=== PATIENT | male | born 1950 | race Caucasian/White ===

== ENCOUNTER 2020-04-20 14:34 | Inpatient (IN) | payer MEDICARE ==
[~2020-04-20] VITALS: Ht 170.2 cm; Wt 69.4 kg
[2020-04-20 15:26] LABS: BASO % 1 % (0-3); EOS # 0.1 x10^3/uL (0.0-0.7); EOS % 1 % (0-3); HEMATOCRIT 24.9 % (39.0-53.0); HEMOGLOBIN 8.1 g/dL (13.0-17.5); LYMPH # 0.5 x10^3/uL (1.0-4.8); LYMPH % 13 % (24-48); MEAN CORPUSCULAR HEMOGLOBIN 30 pg (25-35); MEAN CORPUSCULAR HGB CONC 32 g/dL (31-37); MEAN CORPUSCULAR VOLUME 93 fL (79-100); MONO # 0.4 x10^3/uL (0.0-1.1); MONO % 10 % (0-9); NEUT # 3.1 x10^3/uL (1.8-7.7); NEUT % 76 % (31-73); PLATELET COUNT 124 x10^3/uL (140-400); WHITE BLOOD COUNT 4.2 x10^3/uL (4.0-11.0)
--- NOTE | 2020-04-20 15:29 | PHYS DOC ---
Past Medical History Past Medical History: No Pertinent History Past Surgical History: No Surgical History Smoking Status: Former Smoker Alcohol Use: None Drug Use: None General Adult EDM: Chief Complaint: WEAKNESS/GENERALIZED HPI: HPI: 69-year-old male presenting the [facility] today with generalized w eakness. He is brought in by a friend. They have noticed that he has been losing weight over the past 3 to 4 months. He is got generally weak. He was able to walk from his bedroom to the friend's car with some assistance. He denies any pain at this time. He denies nausea vomiting or diaphoresis. Review of systems negative for chest pain headache vomiting fevers chills or karyn h. He denies dysuria hematuria polyuria. All other review of systems negative. ED course: 69-year-old male presenting with generalized weakness and decreasing mobility over the past 2 months. On arrival patient is afebrile with elevated blood pressure of 180/96. Pulse within normal limits. Blood work shows hemoglobin of 8.1. White blood cell count of 4.2. Chemistry panel shows hyperkalemia of 6.9. Carbon dioxide of 11. BUN 211. Creatinine of 14.1. Calcium of 5.9. proBNP is greater than 35,000. Troponin 0 0.06. CK of 934. I spoke with the auto radiator mechanic about possible dialysis tonight. He will schedule for dialysis tomorrow morning. He recommends a bicarb drip and calcium. I then spoke to Dr. Gonzalez. Will admit the patient to the intensive care unit. Dr. Gonzalez accepts the patient for admission. CT of the abdomen pelvis shows no acute pathology. Heart Score: Risk Factors: Risk Factors: DM, Current or recent (<one month) smoker, HTN, HLP, family hist ory of CAD, obesity. Risk Scores: Score 0 - 3: 2.5% MACE over next 6 weeks - Discharge Home Score 4 - 6: 20.3% MACE over next 6 weeks - Admit for Clinical Observation Score 7 - 10: 72.7% MACE over next 6 weeks - Early Invasive Strategies Physical Exam: PE: Constitutional: Well developed, well nourished, no acute distress, non-toxic appearance. [] HENT: Normocephalic, atraumatic, bilateral external ears normal, oropharynx moist, no oral exudates, nose normal. [] Eyes: PERRLA, EOMI, conjunctiva normal, no discharge. [] Neck: Normal range of motion, no tenderness, supple, no stridor. [] Cardiovascular:Heart rate regular rhythm, no murmur [] Lungs & Thorax: Bilateral breath sounds clear to auscultation [] Abdomen: Bowel sounds normal, soft, no tenderness, no masses, no pulsatile masses. [] Skin: Warm, dry, no erythema, no rash. [] Back: No tenderness, no CVA tenderness. [] Extremities: No tenderness, no cyanosis, no clubbing, ROM intact, trace bilateral edema. [] Neurologic: Mental status: Awake oriented and alert x3 Cranial nerves: Extraocular movements intact, eyebrows martin bilaterally, smile symmetric, uvula elevation nl, shoulder shrug intact bilaterally, tongue protrusion normal Clear speech. Normal [id number]. Sensation: equal and normal in all extremities Strength: 5/5 in upper and lower extremities bilaterally Psychologic: Affect normal, judgement normal, mood normal. [] EKG: EKG: EKG shows sinus rhythm with a regular rate. There is subtle lateral st depression. Does not meet STEMI criteria. No ST elevation. There are no peaking T waves. QRS 108. QTc 496. Radiology/Procedures: Radiology/Procedures: [] Course & Med Decision Making: Course & Med Decision Making Pertinent Labs and Imaging studies reviewed. (See chart for details) [] Dragon Disclaimer: Dragon Disclaimer: This electronic medical record was generated, in whole or in part, using a voice recognition dictation system. Departure Departure Impression: Primary Impression: PNA (pneumonia) Additional Impression: Elevated troponin Disposition: ADMITTED INPT THIS HOSP Admitting Physician: ROYCE Condition: STABLE Critical Care Time Critical care time spent was 45 minutes exclusive of procedures. Time was spent evaluating the patient, ordering the administration of medications, reevaluating the patient, discussing with the admitting provider and documenting. JAYNE ECKERT MD Apr 20, 2020 15:29
[2020-04-20 15:47] LABS: ALBUMIN 3.6 g/dL (3.4-5.0); CREATININE 14.1 mg/dL (0.7-1.3); DIRECT BILIRUBIN 0.1 mg/dL (0.0-0.2); GFR 3.5; TOTAL BILIRUBIN 0.4 mg/dL (0.2-1.0); TOTAL PROTEIN 7.3 g/dL (6.4-8.2)
--- NOTE | 2020-04-20 15:56 | RAD ---
INDICATION: Reason: gen weakness / Spl. Instructions: / History: COMPARISON: April 2007 FINDINGS: Single view of chest obtained. Hypoexpanded examination. Elevation of the right hemidiaphragm. Mild patchy interstitial opacity. Deg enerative changes the shoulders. IMPRESSION: * Hypoexpanded exam with mild patchy interstitial opacity. This could be secondary to crowding of th e lung markings from hypoexpansion but mild pulmonary vascular congestion or interstitial infiltrate is not excluded given this finding. Electronically signed by: Hermann Patton MD (04/20/2020 3:54 PM) [id number]
[2020-04-20 16:05] LABS: CALCIUM 5.9 mg/dL (8.5-10.1)
[2020-04-20] MEDS ORDERED: cefTRIAXone IV Push 1 GM VIAL. IVP ONE (16:15)
[2020-04-20] MEDS ORDERED: ASPIRIN CHEWABLE 81 MG TABLET. PO ONE (16:15)
[2020-04-20] MEDS ORDERED: AZITHRMYCN 500MG IVPB FOR OMNI 250 ML IV ONE (16:15)
[2020-04-20] MEDS ORDERED: CALCIUM GLUCONATE 1,000 MG/10 ML VIAL. IVP ONE (16:45)
[2020-04-20] MEDS ORDERED: SODIUM BICARB ADULT 8.4% 50 MEQ/50 ML DISP.SYRIN. IV ONE (16:45)
[2020-04-20 17:24] LABS: POTASSIUM 6.9 mmol/L (3.5-5.1)
[2020-04-20 18:01] LABS: BASE EXCESS COOX -16 mmol/L (-3-3); HCO3 COOX 9 mmol/L (21-28); METHEMOGLOBIN 0.7 % (0.0-1.9); OXYHEMOGLOBIN 96.2 %; PO2 COOX 108 mmHg (65-108); SAT O2 COOX 97 % (92-99)
[2020-04-20 18:03] LABS: PCO2 COOX 18 mmHg (35-46)
[2020-04-20] MEDS ORDERED: MAGNESIUM SULFATE 2GM 50 ML IV PRN (18:45)
--- NOTE | 2020-04-20 18:46 | PDOC ---
PROGRESS NOTES Date of Service DATE: 04/20/20 TIME: 18:44 Subjective Subjective Discussed case with Dr Leach. Appears to have had significant weight loss in recent past with high suspicion for underlying Malignancy. Will await Abd CT etc prior to consideration for Dialysis anand since progonosis would be dependent on same. Will use only 1 L of IVF with BIcarb due to ^^Ed BNP. IV Bicarb as needed. check Mag and CK. Objective Objective Vital Signs Date Time Temp Pulse Resp B/P (MAP) Pulse Ox O2 Delivery O2 Flow Rate FiO2 04/20/20 17:55 Room Air 04/20/20 17:29 94 99 04/20/20 14:50 98.1 20 179/96 (123) 98.1 Assessment Assessment Problems Medical Problems: (1) Elevated troponin Status: Acute (2) PNA (pneumonia) Status: Acute Comment Review of Relevant I have reviewed the following items amee (where applicable) has been applied. Labs Laboratory Tests Test 04/20/20 15:15 04/20/20 17:55 White Blood Count 4.2 x10^3/uL (4.0-11.0) Red Blood Count 2.70 x10^6/uL (4.30-5.70) Hemoglobin 8.1 g/dL (13.0-17.5) Hematocrit 24.9 % (39.0-53.0) Mean Corpuscular Volume 93 fL (79-100) Mean Corpuscular Hemoglobin 30 pg (25-35) Mean Corpuscular Hemoglobin Concent 32 g/dL (31-37) Red Cell Distribution Width 16.0 % (11.5-14.5) Platelet Count 124 x10^3/uL (140-400) Neutrophils (%) (Auto) 76 % (31-73) Lymphocytes (%) (Auto) 13 % (24-48) Monocytes (%) (Auto) 10 % (0-9) Eosinophils (%) (Auto) 1 % (0-3) Basophils (%) (Auto) 1 % (0-3) Neutrophils # (Auto) 3.1 x10^3/uL (1.8-7.7) Lymphocytes # (Auto) 0.5 x10^3/uL (1.0-4.8) Monocytes # (Auto) 0.4 x10^3/uL (0.0-1.1) Eosinophils # (Auto) 0.1 x10^3/uL (0.0-0.7) Basophils # (Auto) 0.0 x10^3/uL (0.0-0.2) Sodium Level 142 mmol/L (136-145) Potassium Level 6.9 mmol/L (3.5-5.1) Chloride Level 110 mmol/L (98-107) Carbon Dioxide Level 11 mmol/L (21-32) Anion Gap 21 (6-14) Blood Urea Nitrogen 211 mg/dL (8-26) Creatinine 14.1 mg/dL (0.7-1.3) Estimated GFR (Cockcroft-Gault) 3.5 Glucose Level 91 mg/dL (70-99) Calcium Level 5.9 mg/dL (8.5-10.1) Total Bilirubin 0.4 mg/dL (0.2-1.0) Direct Bilirubin 0.1 mg/dL (0.0-0.2) Aspartate Amino Transf (AST/SGOT) 44 U/L (15-37) Alanine Aminotransferase (ALT/SGPT) 100 U/L (16-63) Alkaline Phosphatase 167 U/L (46-116) Troponin I Quantitative 0.060 ng/mL (0.000-0.055) SN-Bmq-A-Type Natriuretic Peptide > 69026 pg/mL (0-124) Total Protein 7.3 g/dL (6.4-8.2) Albumin 3.6 g/dL (3.4-5.0) Lipase 590 U/L (73-393) O2 Saturation 97 % (92-99) Arterial Blood pH 7.30 (7.35-7.45) Arterial Blood pCO2 at Patient Temp 18 mmHg (35-46) Arterial Blood pO2 at Patient Temp 108 mmHg (65-108) Arterial Blood HCO3 9 mmol/L (21-28) Arterial Blood Base Excess -16 mmol/L (-3-3) Oxyhemoglobin 96.2 % Methemoglobin 0.7 % (0.0-1.9) Carbon Monoxide, Quantitative 0.3 % (0.0-1.9) FiO2 21 Laboratory Tests Test 04/20/20 15:15 04/20/20 17:55 White Blood Count 4.2 x10^3/uL (4.0-11.0) Red Blood Count 2.70 x10^6/uL (4.30-5.70) Hemoglobin 8.1 g/dL (13.0-17.5) Hematocrit 24.9 % (39.0-53.0) Mean Corpuscular Volume 93 fL (79-100) Mean Corpuscular Hemoglobin 30 pg (25-35) Mean Corpuscular Hemoglobin Concent 32 g/dL (31-37) Red Cell Distribution Width 16.0 % (11.5-14.5) Platelet Count 124 x10^3/uL (140-400) Neutrophils (%) (Auto) 76 % (31-73) Lymphocytes (%) (Auto) 13 % (24-48) Monocytes (%) (Auto) 10 % (0-9) Eosinophils (%) (Auto) 1 % (0-3) Basophils (%) (Auto) 1 % (0-3) Neutrophils # (Auto) 3.1 x10^3/uL (1.8-7.7) Lymphocytes # (Auto) 0.5 x10^3/uL (1.0-4.8) Monocytes # (Auto) 0.4 x10^3/uL (0.0-1.1) Eosinophils # (Auto) 0.1 x10^3/uL (0.0-0.7) Basophils # (Auto) 0.0 x10^3/uL (0.0-0.2) Sodium Level 142 mmol/L (136-145) Potassium Level 6.9 mmol/L (3.5-5.1) Chloride Level 110 mmol/L (98-107) Carbon Dioxide Level 11 mmol/L (21-32) Anion Gap 21 (6-14) Blood Urea Nitrogen 211 mg/dL (8-26) Creatinine 14.1 mg/dL (0.7-1.3) Estimated GFR (Cockcroft-Gault) 3.5 Glucose Level 91 mg/dL (70-99) Calcium Level 5.9 mg/dL (8.5-10.1) Total Bilirubin 0.4 mg/dL (0.2-1.0) Direct Bilirubin 0.1 mg/dL (0.0-0.2) Aspartate Amino Transf (AST/SGOT) 44 U/L (15-37) Alanine Aminotransferase (ALT/SGPT) 100 U/L (16-63) Alkaline Phosphatase 167 U/L (46-116) Troponin I Quantitative 0.060 ng/mL (0.000-0.055) HG-Uvf-Z-Type Natriuretic Peptide > 99327 pg/mL (0-124) Total Protein 7.3 g/dL (6.4-8.2) Albumin 3.6 g/dL (3.4-5.0) Lipase 590 U/L (73-393) O2 Saturation 97 % (92-99) Arterial Blood pH 7.30 (7.35-7.45) Arterial Blood pCO2 at Patient Temp 18 mmHg (35-46) Arterial Blood pO2 at Patient Temp 108 mmHg (65-108) Arterial Blood HCO3 9 mmol/L (21-28) Arterial Blood Base Excess -16 mmol/L (-3-3) Oxyhemoglobin 96.2 % Methemoglobin 0.7 % (0.0-1.9) Carbon Monoxide, Quantitative 0.3 % (0.0-1.9) FiO2 21 Medications Current Medications Ceftriaxone Sodium (Rocephin) 1 gm 1X ONCE IVP Last administered on 04/20/20at 17:42; Start 04/20/20 at 16:15; Stop 04/20/20 at 16:17; Status DC Azithromycin 250 ml @ 250 mls/hr 1X ONCE IV Last administered on 04/20/20at 17:45; Start 04/20/20 at 16:15; Stop 04/20/20 at 17:14; Status DC Aspirin (Aspirin Chewable) 324 mg 1X ONCE PO Last administered on 04/20/20at 17:48; Start 04/20/20 at 16:15; Stop 04/20/20 at 16:17; Status DC Calcium Gluconate (Calcium Gluconate) 1,000 mg 1X ONCE IVP Last administered on 04/20/20at 17:34; Start 04/20/20 at 16:45; Stop 04/20/20 at 16:46; Status DC Sodium Bicarbonate (Sodium Bicarb Adult 8.4% Syr) 50 meq 1X ONCE IV Last administered on 04/20/20at 17:32; Start 04/20/20 at 16:45; Stop 04/20/20 at 16:46; Status DC Sodium Bicarbonate 150 meq/Sterile Water 1,150 ml @ 125 mls/hr Q9H12M IV ; Start 04/20/20 at 19:00 Magnesium Sulfate 50 ml @ 25 mls/hr PRN DAILY PRN IV for Mag < 1.7 on am labs; Start 04/20/20 at 18:45 Vitals/I & O Vital Sign - Last 24 Hours 04/20/20 04/20/20 04/20/20 04/20/20 14:50 15:29 15:59 16:29 Temp 98.1 98.1 Pulse 90 92 90 90 Resp 20 B/P (MAP) 179/96 (123) Pulse Ox 99 99 O2 Delivery Room Air 04/20/20 04/20/20 04/20/20 16:59 17:29 17:55 Pulse 90 94 Pulse Ox 100 99 O2 Delivery Room Air Justifications for Admission Other Justification JORGE OSPINA MD Apr 20, 2020 18:46
[2020-04-20] MEDS ORDERED: SODIUM POLYSTYRENE SULFON/SORB 15 GM/60 ML ORAL.SUSP. PO ONE (19:00)
[2020-04-20] MEDS ORDERED: SODIUM BICARBONATE VIAL 150 MEQ in IV STERILE WATER 1,000 ML IV SCH (19:00)
--- NOTE | 2020-04-20 19:02 | RAD ---
Exam performed: CT scan of the abdomen and pelvis with contrast Indication: Elevated bilirubin Date of Service: 04/20/2020. Comparison: None available Technique: Contiguous helical acquisitions are obtained through the abdomen and pelvis without IV co ntrast In addition sagittal and coronal reformatted images are obtained and reviewed. CT scan abdomen and pelvis findings: Small right and trace left pleural effusion. Bibasilar atelectasis. Borderline cardiomegaly. Unopacified liver, spleen, pancreas and gallbladder are normal. Bilateral adrenal nodules. Bilateral kidneys are symmetric without hydronephrosis or nephrolithiasis. Diffuse atheromatous aortic calcific ation. Small and large bowel loops are nondilated and unremarkable. Generalized mesenteric haziness s een around both kidneys perhaps chronic. Appendix is not clearly seen. Mild sigmoid diverticulosis. T here is scattered stool in the rectosigmoid region. Diffuse prostatomegaly causing mass effect on the base of urinary bladder which appears somewhat decompressed. Bones are normal. Impression CT Abdomen and pelvis: 1. Small right and trace left pleural effusion. 2. No acute intra-abdominal or pelvic process seen. PQRS Compliance Statement: One or more of the following individualized dose reduction techniques were utilized for this examinat ion: 1. Automated exposure control 2. Adjustment of the mA and/or kV according to patient size 3. Use of iterative reconstruction technique Electronically signed by: Tia Sorto MD (04/20/2020 7:00 PM) [facility]
--- NOTE | 2020-04-20 19:38 | PDOC1 ---
History and Physical Date of Admission Date of Admission DATE: 04/20/20 TIME: 19:14 Identification/Chief Complaint Chief Complaint Weakness Source Source: Caregiver, Patient History of Present Illness History of Present Illness Patient 69-year-old male no stated past medical history who resents to the ER with complaint of generalized weakness for the past 3 months. Over this time patient notes associated 40 pound unintentional weight loss, and constitutional symptoms of night sweats and intermittent nocturnal fevers. He lives alone and presents to the ED at the behest of his family friend, who has been urging ev santana to be seen by a doctor for the past several months. Upon evaluation in the ER he is noted to be jaundice with icteric sclera. He states he has not urinated today, and upon evaluation in the ER he was noted to be in renal failure. Patient is alert and oriented to self and place. He really does not have any complaints except for admitted weakness, and he requires much prodding to obtain information. Will admit patient for further medical management. WBC 4.2, hemoglobin 8.1, hematocrit 24.9, potassium 6.9, bicarbonate 11, BUN 211, creatinine 14.1, calcium 5.9, AST 44, ALT 100, alk phos 167, BNP >35,000, troponin 0.060 Past Medical History Past Medical History Denies past medical history Past Surgical History Past Surgical History Denies surgical history Family History Family History Denies relevant family history Social History Smoke: No ALCOHOL: none Drugs: None Current Problem List Problem List Problems Medical Problems: (1) Elevated troponin Status: Acute (2) PNA (pneumonia) Status: Acute Current Medications Current Medications Current Medications Ceftriaxone Sodium (Rocephin) 1 gm 1X ONCE IVP Last administered on 04/20/20at 17:42; Start 04/20/20 at 16:15; Stop 04/20/20 at 16:17; Status DC Azithromycin 250 ml @ 250 mls/hr 1X ONCE IV Last administered on 04/20/20at 17:45; Start 04/20/20 at 16:15; Stop 04/20/20 at 17:14; Status DC Aspirin (Aspirin Chewable) 324 mg 1X ONCE PO Last administered on 04/20/20at 17:48; Start 04/20/20 at 16:15; Stop 04/20/20 at 16:17; Status DC Calcium Gluconate (Calcium Gluconate) 1,000 mg 1X ONCE IVP Last administered on 04/20/20at 17:34; Start 04/20/20 at 16:45; Stop 04/20/20 at 16:46; Status DC Sodium Bicarbonate (Sodium Bicarb Adult 8.4% Syr) 50 meq 1X ONCE IV Last administered on 04/20/20at 17:32; Start 04/20/20 at 16:45; Stop 04/20/20 at 16:46; Status DC Sodium Bicarbonate 150 meq/Sterile Water 1,150 ml @ 125 mls/hr Q9H12M IV ; Start 04/20/20 at 19:00; Stop 04/21/20 at 02:59 Magnesium Sulfate 50 ml @ 25 mls/hr PRN DAILY PRN IV for Mag < 1.7 on am labs; Start 04/20/20 at 18:45 Calcium Gluconate (Calcium Gluconate) 1,000 mg Q3H IVP ; Start 04/20/20 at 19:00; Stop 04/21/20 at 01:01 Sodium Polystyrene Sulfonate (Kayexalate) 45 gm 1X ONCE PO ; Start 04/20/20 at 19:00; Stop 04/20/20 at 19:01; Status DC Allergies Allergies: Coded Allergies: No Known Drug Allergies (Unverified , 04/20/20) ROS Review of System GENERAL: Weakness, unintentional weight loss, night sweats, intermittent fevers. SKIN: No bruising, hair changes or rashes. EYES: No blurred, double or loss of vision. NOSE AND THROAT: No history of nosebleeds, hoarseness or sore throat. HEART: Denies chest pain, denies palpitations. LUNGS: Denies cough, hemoptysis, wheezing or shortness of breath. GASTROINTESTINAL: Denies nausea, vomiting, abdominal pain. GENITOURINARY: Denies dysuria, frequency, urgency, hematuria. NEUROLOGIC: Denies history of numbness, tingling, tremor or weakness. PSYCHIATRIC: Denies anxiety, denies depression. ENDOCRINE: No history of heat or cold intolerance, polyuria or polydipsia. EXTREMITIES: Denies muscle weakness, joint pain, pain on walking or stiffness. Physical Exam Physical Exam General: Alert, Oriented X2, No acute distress. Cachectic appearing. HEENT: Icteric sclera. PERRLA, EOMI Lungs: Clear to auscultation, Normal air movement Heart: RRR, no murmurs Cardiovascular: S1, S2 Abdomen: Normal bowel sounds, Soft, No tenderness Extremities: No clubbing, No cyanosis Skin: Jaundice. No rashes, No significant lesion Neuro: Normal speech, Normal tone, Sensation intact Psych/Mental Status: Mental status NL, Mood NL Vitals Vitals Vital Signs Date Time Temp Pulse Resp B/P (MAP) Pulse Ox O2 Delivery O2 Flow Rate FiO2 04/20/20 17:55 Room Air 04/20/20 17:29 94 99 04/20/20 14:50 98.1 20 179/96 (123) 98.1 Labs Labs Laboratory Tests Test 04/20/20 15:15 04/20/20 17:55 White Blood Count 4.2 x10^3/uL (4.0-11.0) Red Blood Count 2.70 x10^6/uL (4.30-5.70) Hemoglobin 8.1 g/dL (13.0-17.5) Hematocrit 24.9 % (39.0-53.0) Mean Corpuscular Volume 93 fL (79-100) Mean Corpuscular Hemoglobin 30 pg (25-35) Mean Corpuscular Hemoglobin Concent 32 g/dL (31-37) Red Cell Distribution Width 16.0 % (11.5-14.5) Platelet Count 124 x10^3/uL (140-400) Neutrophils (%) (Auto) 76 % (31-73) Lymphocytes (%) (Auto) 13 % (24-48) Monocytes (%) (Auto) 10 % (0-9) Eosinophils (%) (Auto) 1 % (0-3) Basophils (%) (Auto) 1 % (0-3) Neutrophils # (Auto) 3.1 x10^3/uL (1.8-7.7) Lymphocytes # (Auto) 0.5 x10^3/uL (1.0-4.8) Monocytes # (Auto) 0.4 x10^3/uL (0.0-1.1) Eosinophils # (Auto) 0.1 x10^3/uL (0.0-0.7) Basophils # (Auto) 0.0 x10^3/uL (0.0-0.2) Sodium Level 142 mmol/L (136-145) Potassium Level 6.9 mmol/L (3.5-5.1) Chloride Level 110 mmol/L (98-107) Carbon Dioxide Level 11 mmol/L (21-32) Anion Gap 21 (6-14) Blood Urea Nitrogen 211 mg/dL (8-26) Creatinine 14.1 mg/dL (0.7-1.3) Estimated GFR (Cockcroft-Gault) 3.5 Glucose Level 91 mg/dL (70-99) Calcium Level 5.9 mg/dL (8.5-10.1) Total Bilirubin 0.4 mg/dL (0.2-1.0) Direct Bilirubin 0.1 mg/dL (0.0-0.2) Aspartate Amino Transf (AST/SGOT) 44 U/L (15-37) Alanine Aminotransferase (ALT/SGPT) 100 U/L (16-63) Alkaline Phosphatase 167 U/L (46-116) Creatine Kinase 934 U/L (39-308) Troponin I Quantitative 0.060 ng/mL (0.000-0.055) FV-Fnj-B-Type Natriuretic Peptide > 39984 pg/mL (0-124) Total Protein 7.3 g/dL (6.4-8.2) Albumin 3.6 g/dL (3.4-5.0) Lipase 590 U/L (73-393) O2 Saturation 97 % (92-99) Arterial Blood pH 7.30 (7.35-7.45) Arterial Blood pCO2 at Patient Temp 18 mmHg (35-46) Arterial Blood pO2 at Patient Temp 108 mmHg (65-108) Arterial Blood HCO3 9 mmol/L (21-28) Arterial Blood Base Excess -16 mmol/L (-3-3) Oxyhemoglobin 96.2 % Methemoglobin 0.7 % (0.0-1.9) Carbon Monoxide, Quantitative 0.3 % (0.0-1.9) FiO2 21 Laboratory Tests Test 04/20/20 15:15 04/20/20 17:55 White Blood Count 4.2 x10^3/uL (4.0-11.0) Red Blood Count 2.70 x10^6/uL (4.30-5.70) Hemoglobin 8.1 g/dL (13.0-17.5) Hematocrit 24.9 % (39.0-53.0) Mean Corpuscular Volume 93 fL (79-100) Mean Corpuscular Hemoglobin 30 pg (25-35) Mean Corpuscular Hemoglobin Concent 32 g/dL (31-37) Red Cell Distribution Width 16.0 % (11.5-14.5) Platelet Count 124 x10^3/uL (140-400) Neutrophils (%) (Auto) 76 % (31-73) Lymphocytes (%) (Auto) 13 % (24-48) Monocytes (%) (Auto) 10 % (0-9) Eosinophils (%) (Auto) 1 % (0-3) Basophils (%) (Auto) 1 % (0-3) Neutrophils # (Auto) 3.1 x10^3/uL (1.8-7.7) Lymphocytes # (Auto) 0.5 x10^3/uL (1.0-4.8) Monocytes # (Auto) 0.4 x10^3/uL (0.0-1.1) Eosinophils # (Auto) 0.1 x10^3/uL (0.0-0.7) Basophils # (Auto) 0.0 x10^3/uL (0.0-0.2) Sodium Level 142 mmol/L (136-145) Potassium Level 6.9 mmol/L (3.5-5.1) Chloride Level 110 mmol/L (98-107) Carbon Dioxide Level 11 mmol/L (21-32) Anion Gap 21 (6-14) Blood Urea Nitrogen 211 mg/dL (8-26) Creatinine 14.1 mg/dL (0.7-1.3) Estimated GFR (Cockcroft-Gault) 3.5 Glucose Level 91 mg/dL (70-99) Calcium Level 5.9 mg/dL (8.5-10.1) Total Bilirubin 0.4 mg/dL (0.2-1.0) Direct Bilirubin 0.1 mg/dL (0.0-0.2) Aspartate Amino Transf (AST/SGOT) 44 U/L (15-37) Alanine Aminotransferase (ALT/SGPT) 100 U/L (16-63) Alkaline Phosphatase 167 U/L (46-116) Creatine Kinase 934 U/L (39-308) Troponin I Quantitative 0.060 ng/mL (0.000-0.055) HH-Ktl-E-Type Natriuretic Peptide > 70116 pg/mL (0-124) Total Protein 7.3 g/dL (6.4-8.2) Albumin 3.6 g/dL (3.4-5.0) Lipase 590 U/L (73-393) O2 Saturation 97 % (92-99) Arterial Blood pH 7.30 (7.35-7.45) Arterial Blood pCO2 at Patient Temp 18 mmHg (35-46) Arterial Blood pO2 at Patient Temp 108 mmHg (65-108) Arterial Blood HCO3 9 mmol/L (21-28) Arterial Blood Base Excess -16 mmol/L (-3-3) Oxyhemoglobin 96.2 % Methemoglobin 0.7 % (0.0-1.9) Carbon Monoxide, Quantitative 0.3 % (0.0-1.9) FiO2 21 Images Images Exam performed: CT scan of the abdomen and pelvis with contrast Indication: Elevated bilirubin Date of Service: 04/20/2020. Comparison: None available Technique: Contiguous helical acquisitions are obtained through the abdomen and pelvis without IV contrast In addition sagittal and coronal reformatted images are obtained and reviewed. CT scan abdomen and pelvis findings: Small right and trace left pleural effusion. Bibasilar atelectasis. Borderline cardiomegaly. Unopacified liver, spleen, pancreas and gallbladder are normal. Bilateral adrenal nodules. Bilateral kidneys are symmetric without hydronephrosis or nephrolithiasis. Diffuse atheromatous aortic calcification. Small and large bowel loops are nondilated and unremarkable. Generalized mesenteric haziness seen around both kidneys perhaps chronic. Appendix is not clearly seen. Mild sigmoid diverticulosis. There is scattered stool in the rectosigmoid region. Diffuse prostatomegaly causing mass effect on the base of urinary bladder which appears somewhat decompressed. Bones are normal. Impression CT Abdomen and pelvis: 1. Small right and trace left pleural effusion. 2. No acute intra-abdominal or pelvic process seen. INDICATION: Reason: gen weakness / Spl. Instructions: / History: COMPARISON: April 2007 FINDINGS: Single view of chest obtained. Hypoexpanded examination. Elevation of the right hemidiaphragm. Mild patchy interstitial opacity. Degenerative changes the shoulders. IMPRESSION: * Hypoexpanded exam with mild patchy interstitial opacity. This could be secondary to crowding of the lung markings from hypoexpansion but mild pulmonary vascular congestion or interstitial infiltrate is not excluded given this finding. VTE Prophylaxis Ordered VTE Prophylaxis Devices: No VTE Pharmacological Prophylaxi: Yes Assessment/Plan Assessment/Plan Acute renal failure Hyperkalemia Hypercalcemia Transaminitis Jaundice Elevated BNP Elevated troponins Plan: Consult nephrology for acute renal failure; patient will likely be initiated on hemodialysis Patient received calcium gluconate and sodium bicarb. Placed on bicarb drip. Consult to cardiology for elevated troponins, will continue to trend. Will consult GI for transaminitis and jaundice. Chest x-ray on admission shows patchy interstitial opacities, could be secondary to vascular congestion or infiltrates. Afebrile, nontoxic-appearing. Will treat empirically with renally dosed cefepime 1 g every 24 for possible community-acquired pneumonia. Unintentional weight loss of constitutional symptoms consistent with malignancy, but no clear source or etiology identified at this time. FEN - regular diet PPX - Heparin FULL CODE Dispo - inpatient for above Patient is a surrogate decision-maker as Brian Meade (family friend). Phone number: [phone] Justifications for Admission Other Justification ROX PERALTA MD Apr 20, 2020 19:38
[2020-04-20] MEDS ORDERED: CALCIUM CARBONATE 500 MG TAB.CHEW PO PRN (19:45)
[2020-04-20] MEDS ORDERED: MAGNESIUM HYDROXIDE 2,400 MG/30 ML ORAL.SUSP. PO PRN (19:45)
[2020-04-20] MEDS ORDERED: BISACODYL 10 MG SUPP.RECT. PR PRN (19:45)
[2020-04-20] MEDS ORDERED: MAG HYDROX/ALUMINUM HYD/SIMETH 30 ML ORAL.SUSP PO PRN (19:45)
[2020-04-20] MEDS: CALCIUM GLUCONATE 1,000 MG/10 ML VIAL. IVP SCH ×2 (20:42→23:55)
[2020-04-20] MEDS: HEPARIN for SUB-Q USE 5,000 UNIT/ML VIAL. SQ SCH (22:58)
[2020-04-21] VITALS (8 sets, daily range): BP systolic 150–178; BP diastolic 77–97
[2020-04-21] MEDS: CALCIUM GLUCONATE 1,000 MG/10 ML VIAL. IVP SCH (00:37)
[2020-04-21] MEDS ORDERED: CALCIUM GLUCONATE 1,000 MG/10 ML VIAL. IVP ONE (04:15)
[2020-04-21 05:41] LABS: CALCIUM 6.4 mg/dL (8.5-10.1); CREATININE 13.7 mg/dL (0.7-1.3); GFR 3.6; TOTAL BILIRUBIN 0.4 mg/dL (0.2-1.0); TOTAL PROTEIN 6.1 g/dL (6.4-8.2)
[2020-04-21 05:47] LABS: POTASSIUM 5.6 mmol/L (3.5-5.1)
[2020-04-21 06:47] LABS: BASO % 1 % (0-3); EOS # 0.1 x10^3/uL (0.0-0.7); EOS % 2 % (0-3); LYMPH # 0.5 x10^3/uL (1.0-4.8); LYMPH % 16 % (24-48); MEAN CORPUSCULAR HEMOGLOBIN 31 pg (25-35); MEAN CORPUSCULAR HGB CONC 33 g/dL (31-37); MEAN CORPUSCULAR VOLUME 95 fL (79-100); MONO # 0.3 x10^3/uL (0.0-1.1); MONO % 11 % (0-9); NEUT % 69 % (31-73); PLATELET COUNT 106 x10^3/uL (140-400); RED BLOOD COUNT 2.19 x10^6/uL (4.30-5.70); RED CELL DISTRIBUTION WIDTH 15.5 % (11.5-14.5); WHITE BLOOD COUNT 2.9 x10^3/uL (4.0-11.0)
[2020-04-21 06:59] LABS: HEMATOCRIT 20.7 % (39.0-53.0); HEMOGLOBIN 6.7 g/dL (13.0-17.5)
[2020-04-21] MEDS ORDERED: SODIUM POLYSTYRENE SULFON/SORB 15 GM/60 ML ORAL.SUSP. PO ONE (08:45)
--- NOTE | 2020-04-21 09:06 | PDOC ---
[employer] PROGRESS NOTE Date of Service DOS: DATE: 04/21/20 TIME: 09:01 Chief Complaint Chief Complaint Assessment/Plan Acute renal failure Hyperkalemia Hypercalcemia Transaminitis Jaundice Elevated BNP Elevated troponins Plan: Consult nephrology for acute renal failure; patient will likely be initiated on hemodialysis Patient received calcium gluconate and sodium bicarb. Placed on bicarb drip. Consult to cardiology for elevated troponins, will continue to trend. Will consult GI for transaminitis and jaundice. Chest x-ray on admission shows patchy interstitial opacities, could be secondary to vascular congestion or infiltrates. Afebrile, nontoxic-appearing. Will treat empirically with renally dosed cefepime 1 g every 24 for possible community-acquired pneumonia. Unintentional weight loss of constitutional symptoms consistent with malignancy, but no clear source or etiology identified at this time. FEN - regular diet PPX - Heparin FULL CODE Dispo - inpatient for above Patient is a surrogate decision-maker as Brian Meade (family friend). Phone number: [phone] History of Present Illness History of Present Illness Patient 69-year-old male no stated past medical history who resents to the ER with complaint of generalized weakness for the past 3 months. Over this time patient notes associated 40 pound unintentional weight loss, and constitutional symptoms of night sweats and intermittent nocturnal fevers. He lives alone and presents to the ED at the behest of his family friend, who has been urging patient to be seen by a doctor for the past several months. Upon evaluation in the ER he is noted to be jaundice with icteric sclera. He states he has not urinated today, and upon evaluation in the ER he was noted to be in renal failure. Patient is alert and oriented to self and place. He really does not have any complaints except for admitted weakness, and he requires much prodding to obtain information. Will admit patient for further medical management. 04/21: Patient without complaints today. Hemoglobin 6.7, potassium improved. Ordered 2 units pRBC. Due to presenting symptoms of weakness and intermittent fevers. Will swab patient for COVID-19. He may transfer 6th floor. Denies fever or nausea. Vitals/I&O Vitals/I&O: Vital Signs Date Time Temp Pulse Resp B/P (MAP) Pulse Ox O2 Delivery O2 Flow Rate FiO2 04/21/20 06:59 84 18 149/85 (106) 100 Room Air 04/20/20 14:50 98.1 98.1 I & O 04/20/20 04/20/20 04/21/20 15:00 23:00 07:00 Intake Total 250 ml 1270 ml Balance 250 ml 1270 ml Physical Exam General: Alert, No acute distress, Other (Cachectic appearing) Heart: Regular rate Lungs: Clear Abdomen: Normal bowel sounds, Soft Extremities: No edema, Normal pulses Skin: Other (Jaundiced) Labs Labs: Laboratory Tests Test 04/20/20 15:15 04/20/20 17:55 04/21/20 05:00 04/21/20 06:00 White Blood Count 4.2 x10^3/uL (4.0-11.0) 2.9 x10^3/uL (4.0-11.0) Red Blood Count 2.70 x10^6/uL (4.30-5.70) 2.19 x10^6/uL (4.30-5.70) Hemoglobin 8.1 g/dL (13.0-17.5) 6.7 g/dL (13.0-17.5) Hematocrit 24.9 % (39.0-53.0) 20.7 % (39.0-53.0) Mean Corpuscular Volume 93 fL (79-100) 95 fL (79-100) Mean Corpuscular Hemoglobin 30 pg (25-35) 31 pg (25-35) Mean Corpuscular Hemoglobin Concent 32 g/dL (31-37) 33 g/dL (31-37) Red Cell Distribution Width 16.0 % (11.5-14.5) 15.5 % (11.5-14.5) Platelet Count 124 x10^3/uL (140-400) 106 x10^3/uL (140-400) Neutrophils (%) (Auto) 76 % (31-73) 69 % (31-73) Lymphocytes (%) (Auto) 13 % (24-48) 16 % (24-48) Monocytes (%) (Auto) 10 % (0-9) 11 % (0-9) Eosinophils (%) (Auto) 1 % (0-3) 2 % (0-3) Basophils (%) (Auto) 1 % (0-3) 1 % (0-3) Neutrophils # (Auto) 3.1 x10^3/uL (1.8-7.7) 2.0 x10^3/uL (1.8-7.7) Lymphocytes # (Auto) 0.5 x10^3/uL (1.0-4.8) 0.5 x10^3/uL (1.0-4.8) Monocytes # (Auto) 0.4 x10^3/uL (0.0-1.1) 0.3 x10^3/uL (0.0-1.1) Eosinophils # (Auto) 0.1 x10^3/uL (0.0-0.7) 0.1 x10^3/uL (0.0-0.7) Basophils # (Auto) 0.0 x10^3/uL (0.0-0.2) 0.0 x10^3/uL (0.0-0.2) Sodium Level 142 mmol/L (136-145) 148 mmol/L (136-145) Potassium Level 6.9 mmol/L (3.5-5.1) 5.6 mmol/L (3.5-5.1) Chloride Level 110 mmol/L (98-107) 110 mmol/L (98-107) Carbon Dioxide Level 11 mmol/L (21-32) 14 mmol/L (21-32) Anion Gap 21 (6-14) 24 (6-14) Blood Urea Nitrogen 211 mg/dL (8-26) 203 mg/dL (8-26) Creatinine 14.1 mg/dL (0.7-1.3) 13.7 mg/dL (0.7-1.3) Estimated GFR (Cockcroft-Gault) 3.5 3.6 Glucose Level 91 mg/dL (70-99) 54 mg/dL (70-99) Calcium Level 5.9 mg/dL (8.5-10.1) 6.4 mg/dL (8.5-10.1) Total Bilirubin 0.4 mg/dL (0.2-1.0) 0.4 mg/dL (0.2-1.0) Direct Bilirubin 0.1 mg/dL (0.0-0.2) Aspartate Amino Transf (AST/SGOT) 44 U/L (15-37) 84 U/L (15-37) Alanine Aminotransferase (ALT/SGPT) 100 U/L (16-63) 120 U/L (16-63) Alkaline Phosphatase 167 U/L (46-116) 183 U/L (46-116) Creatine Kinase 934 U/L (39-308) Troponin I Quantitative 0.060 ng/mL (0.000-0.055) RA-Erz-K-Type Natriuretic Peptide > 44621 pg/mL (0-124) Total Protein 7.3 g/dL (6.4-8.2) 6.1 g/dL (6.4-8.2) Albumin 3.6 g/dL (3.4-5.0) 3.0 g/dL (3.4-5.0) Lipase 590 U/L (73-393) O2 Saturation 97 % (92-99) Arterial Blood pH 7.30 (7.35-7.45) Arterial Blood pCO2 at Patient Temp 18 mmHg (35-46) Arterial Blood pO2 at Patient Temp 108 mmHg (65-108) Arterial Blood HCO3 9 mmol/L (21-28) Arterial Blood Base Excess -16 mmol/L (-3-3) Oxyhemoglobin 96.2 % Methemoglobin 0.7 % (0.0-1.9) Carbon Monoxide, Quantitative 0.3 % (0.0-1.9) FiO2 21 Magnesium Level 1.7 mg/dL (1.8-2.4) BUN/Creatinine Ratio 15 (6-20) Phosphorus Level 11.0 mg/dL (2.6-4.7) Albumin/Globulin Ratio 1.0 (1.0-1.7) Test 04/21/20 06:39 Glucose (Fingerstick) 87 mg/dL (70-99) Assessment and Plan Assessmemt and Plan Problems Medical Problems: (1) Elevated troponin Status: Acute (2) PNA (pneumonia) Status: Acute Comment Review of Relevant I have reviewed the following items amee (where applicable) has been applied. Medications: Current Medications Medications (Trade) Dose Ordered Sig/Mary Route PRN Reason Start Time Stop Time Status Last Admin Dose Admin Ceftriaxone Sodium (Rocephin) 1 gm 1X ONCE IVP 04/20/20 16:15 04/20/20 16:17 DC 04/20/20 17:42 Azithromycin 250 ml @ 250 mls/hr 1X ONCE IV 04/20/20 16:15 04/20/20 17:14 DC 04/20/20 17:45 Aspirin (Aspirin Chewable) 324 mg 1X ONCE PO 04/20/20 16:15 04/20/20 16:17 DC 04/20/20 17:48 Calcium Gluconate (Calcium Gluconate) 1,000 mg 1X ONCE IVP 04/20/20 16:45 04/20/20 16:46 DC 04/20/20 17:34 Sodium Bicarbonate (Sodium Bicarb Adult 8.4% Syr) 50 meq 1X ONCE IV 04/20/20 16:45 04/20/20 16:46 DC 04/20/20 17:32 Sodium Bicarbonate 150 meq/Sterile Water 1,150 ml @ 125 mls/hr Q9H12M IV 04/20/20 19:00 04/21/20 02:59 DC 04/20/20 19:43 Calcium Gluconate (Calcium Gluconate) 1,000 mg Q3H IVP 04/20/20 19:00 04/21/20 01:01 DC 04/21/20 00:37 Sodium Polystyrene Sulfonate (Kayexalate) 45 gm 1X ONCE PO 04/20/20 19:00 04/20/20 19:01 DC 04/20/20 20:16 Heparin Sodium (Porcine) (Heparin Sodium) 5,000 unit Q8HRS SQ 04/20/20 22:00 04/20/20 22:58 Calcium Gluconate (Calcium Gluconate) 1,000 mg 1X ONCE IVP 04/21/20 04:15 04/21/20 04:16 DC 04/21/20 04:14 Justifications for Admission Other Justification Acute renal failure, unintentional weight loss, jaundice, transaminitis ROX PERALTA MD Apr 21, 2020 09:06
--- NOTE | 2020-04-21 09:07 | PDOC2 ---
CONSULT Date of Consult Date of Consult DATE: 04/21/20 TIME: 09:09 Reason for Consult Reason for Consult: Renal failure Referring Physician Referring Physician: Hany Identification/Chief Complaint Chief Complaint Not feeling well Source Source: Chart review, Patient History of Present Illness Reason for Visit: Mr. Pablo is a 69-year-old gentleman appears to be a poor historian and is not very conversant. He usually answers my questions in 1 or 2 word sentences. It appears that he has been diabetic for 4 to 5 years by his reports. He has not seen a physician that he is aware of or that he admits to. He is not aware of underlying renal insufficiency per se. He apparently lives by himself and presented to the ER after he was brought by a family friend. They have noticed that he has lost a significant amount of weight unintentionally for the past 3 months. He does admit to some nausea vomiting and poor appetite.. While he does not admit to it there are some reported constitutional symptoms of night sweats and intermittent nocturnal fevers per admission HPI. At presentation he was noted to be in severe renal failure with a BUN of 211, creatinine of 14 a bicarb of 11 anion gap of 21 a potassium of 6.9 calcium of 5.9 and an NT proBNP of 35,000. Given his elevated proBNP, IV fluids were di scontinued after 1 L of bicarb containing fluids once potassium improved. In this setting I was called by Dr. ECKERT for further evaluation of his renal failure for possible upcoming need for dialysis. No obvious uremic signs symptoms were reported at that time other than elevated potassium and low bicarb. Given his weight loss it was suspected that he may have underlying malignancy and hence we felt that we would want to evaluate that aspect of his care first to determine candidacy for dialysis initiation. It now appears that his CT scans are negative for obvious signs of malignancy per se. He does admit to some amount of NSAID use Patient is currently awaiting an ICU bed but the ICU is full so he has been held in the ER bed I have examined him in room 4. He appears to be hemodynamically stable. He does appear to have dropped his hemoglobin some and is getting a blood transfusion currently. Past Medical History Past Medical History Diabetes Family History Family History Negative for renal disease Social History No ALCOHOL: none Drugs: None Lives: Alone Current Problem List Problem List Problems Medical Problems: (1) Elevated troponin Status: Acute (2) PNA (pneumonia) Status: Acute Current Medications Current Medications Current Medications Ceftriaxone Sodium (Rocephin) 1 gm 1X ONCE IVP Last administered on 04/20/20at 17:42; Start 04/20/20 at 16:15; Stop 04/20/20 at 16:17; Status DC Azithromycin 250 ml @ 250 mls/hr 1X ONCE IV Last administered on 04/20/20at 17:45; Start 04/20/20 at 16:15; Stop 04/20/20 at 17:14; Status DC Aspirin (Aspirin Chewable) 324 mg 1X ONCE PO Last administered on 04/20/20at 17:48; Start 04/20/20 at 16:15; Stop 04/20/20 at 16:17; Status DC Calcium Gluconate (Calcium Gluconate) 1,000 mg 1X ONCE IVP Last administered on 04/20/20at 17:34; Start 04/20/20 at 16:45; Stop 04/20/20 at 16:46; Status DC Sodium Bicarbonate (Sodium Bicarb Adult 8.4% Syr) 50 meq 1X ONCE IV Last administered on 04/20/20at 17:32; Start 04/20/20 at 16:45; Stop 04/20/20 at 16:46; Status DC Sodium Bicarbonate 150 meq/Sterile Water 1,150 ml @ 125 mls/hr Q9H12M IV Last administered on 04/20/20at 19:43; Start 04/20/20 at 19:00; Stop 04/21/20 at 02:59; Status DC Magnesium Sulfate 50 ml @ 25 mls/hr PRN DAILY PRN IV for Mag < 1.7 on am labs; Start 04/20/20 at 18:45 Calcium Gluconate (Calcium Gluconate) 1,000 mg Q3H IVP Last administered on 04/21/20at 00:37; Start 04/20/20 at 19:00; Stop 04/21/20 at 01:01; Status DC Sodium Polystyrene Sulfonate (Kayexalate) 45 gm 1X ONCE PO Last administered on 04/20/20at 20:16; Start 04/20/20 at 19:00; Stop 04/20/20 at 19:01; Status DC Ondansetron HCl (Zofran) 4 mg PRN Q6HRS PRN IVP NAUSEA/VOMITING; Start 04/20/20 at 19:45 Al Hydroxide/Mg Hydroxide (Mylanta Plus Xs) 30 ml PRN Q3HRS PRN PO HEARTBURN / GAS; Start 04/20/20 at 19:45 Calcium Carbonate/ Glycine (Tums) 500 mg PRN Q3HRS PRN PO UPSET STOMACH; Start 04/20/20 at 19:45 Magnesium Hydroxide (Milk Of Magnesia) 2,400 mg PRN Q12HR PRN PO CONSTIPATION; Start 04/20/20 at 19:45 Bisacodyl (Dulcolax Supp) 10 mg PRN DAILY PRN LA CONSTIPATION; Start 04/20/20 at 19:45 Heparin Sodium (Porcine) (Heparin Sodium) 5,000 unit Q8HRS SQ Last administered on 04/20/20at 22:58; Start 04/20/20 at 22:00 Calcium Gluconate (Calcium Gluconate) 1,000 mg 1X ONCE IVP Last administered on 04/21/20at 04:14; Start 04/21/20 at 04:15; Stop 04/21/20 at 04:16; Status DC Calcium Carbonate/ Glycine (Tums) 2,000 mg TIDAC PO ; Start 04/21/20 at 11:30 Sodium Polystyrene Sulfonate (Kayexalate) 15 gm 1X ONCE PO ; Start 04/21/20 at 08:45; Stop 04/21/20 at 08:49; Status DC Allergies Allergies: Coded Allergies: No Known Drug Allergies (Unverified , 04/20/20) ROS Review of System 14 point review of systems as outlined under HPI otherwise negative Physical Exam Physical Exam General Appearance: Awake Alert Oriented x 1-2 In no Distress Eyes: VIsion Unchanged Conjunctiva Normal EN: No EN Drainage Mucous Memb. moist Neck: no JVD no JVP Supple no Thyromegaly CVS: S1 S2 no Murmur No Gallop No Rub no Edema Resp: no Rales no Rhonchi no Acc. Muscle use GI: BAS +ve NO Bruit Non Tender Non Distended : no CVA tenderness; no Suprapubic Tenderness SKIN: no Rashes Breast Exam deferred Mu.Sk: Adequate ROM min Muscle Atrophy Heme: Unable to palpate Obvious LAD no palp Splenomegaly NEURO: Good Strength and Tone Cranial Nerves II - XII grossly intact Psych: ? Depressed no Active hallucination Vital Signs Vital Signs Date Time Temp Pulse Resp B/P (MAP) Pulse Ox O2 Delivery O2 Flow Rate FiO2 04/21/20 06:59 84 18 149/85 (106) 100 Room Air 04/20/20 14:50 98.1 98.1 Assessment & Plan ARF: Patient has etiology unclear. Despite orders, no UA is available at this time for further evaluation. Diabetic nephropathy cannot be ruled out. Intravascular volume depletion is still on differential. NSAID nephropathy is still possibility. He does not appear to have responded much to IV fluids. We will r initiate dialysis in am. Pancytopenia: Consider hematology evaluation Hyperkalemia: Now much improved with correction of metabolic acidosis Wide anion gap metabolic acidosis: Presumably due to renal failure. Severe hyperphosphatemia is also noted Hypocalcemia: IV calcium has been administered: Start Tums as ordered Marginal magnesium levels: IV magnesium as ordered Elevated LFTs: Defer to primary team. Consider GI evaluation in light of drop in H&H Marginal hyper natremia: Watch trend at this time. Anemia: Patient now getting blood transfusion hence iron panel has not been checked Elevated BNP with chest x-ray suggestive of mild pulmonary edema/vascular congestion, hence IV fluids have not been continued at this time. We will watch urine output. Await cardiology evaluation for the same also HTN: Current BP meds reviewed. See orders for changes. Severe hyperphosphatemia: Start Tums for binders Discussed Plan of Care and prognosis etc. with the patient. Discussed need for initiation of dialysis in the morning. Will order permacath in absence of obvious signs of infection at this time. He is agreeable to the same Labs Labs Laboratory Tests Test 04/20/20 15:15 04/20/20 17:55 04/21/20 05:00 04/21/20 06:00 White Blood Count 4.2 x10^3/uL (4.0-11.0) 2.9 x10^3/uL (4.0-11.0) Red Blood Count 2.70 x10^6/uL (4.30-5.70) 2.19 x10^6/uL (4.30-5.70) Hemoglobin 8.1 g/dL (13.0-17.5) 6.7 g/dL (13.0-17.5) Hematocrit 24.9 % (39.0-53.0) 20.7 % (39.0-53.0) Mean Corpuscular Volume 93 fL (79-100) 95 fL (79-100) Mean Corpuscular Hemoglobin 30 pg (25-35) 31 pg (25-35) Mean Corpuscular Hemoglobin Concent 32 g/dL (31-37) 33 g/dL (31-37) Red Cell Distribution Width 16.0 % (11.5-14.5) 15.5 % (11.5-14.5) Platelet Count 124 x10^3/uL (140-400) 106 x10^3/uL (140-400) Neutrophils (%) (Auto) 76 % (31-73) 69 % (31-73) Lymphocytes (%) (Auto) 13 % (24-48) 16 % (24-48) Monocytes (%) (Auto) 10 % (0-9) 11 % (0-9) Eosinophils (%) (Auto) 1 % (0-3) 2 % (0-3) Basophils (%) (Auto) 1 % (0-3) 1 % (0-3) Neutrophils # (Auto) 3.1 x10^3/uL (1.8-7.7) 2.0 x10^3/uL (1.8-7.7) Lymphocytes # (Auto) 0.5 x10^3/uL (1.0-4.8) 0.5 x10^3/uL (1.0-4.8) Monocytes # (Auto) 0.4 x10^3/uL (0.0-1.1) 0.3 x10^3/uL (0.0-1.1) Eosinophils # (Auto) 0.1 x10^3/uL (0.0-0.7) 0.1 x10^3/uL (0.0-0.7) Basophils # (Auto) 0.0 x10^3/uL (0.0-0.2) 0.0 x10^3/uL (0.0-0.2) Sodium Level 142 mmol/L (136-145) 148 mmol/L (136-145) Potassium Level 6.9 mmol/L (3.5-5.1) 5.6 mmol/L (3.5-5.1) Chloride Level 110 mmol/L (98-107) 110 mmol/L (98-107) Carbon Dioxide Level 11 mmol/L (21-32) 14 mmol/L (21-32) Anion Gap 21 (6-14) 24 (6-14) Blood Urea Nitrogen 211 mg/dL (8-26) 203 mg/dL (8-26) Creatinine 14.1 mg/dL (0.7-1.3) 13.7 mg/dL (0.7-1.3) Estimated GFR (Cockcroft-Gault) 3.5 3.6 Glucose Level 91 mg/dL (70-99) 54 mg/dL (70-99) Calcium Level 5.9 mg/dL (8.5-10.1) 6.4 mg/dL (8.5-10.1) Total Bilirubin 0.4 mg/dL (0.2-1.0) 0.4 mg/dL (0.2-1.0) Direct Bilirubin 0.1 mg/dL (0.0-0.2) Aspartate Amino Transf (AST/SGOT) 44 U/L (15-37) 84 U/L (15-37) Alanine Aminotransferase (ALT/SGPT) 100 U/L (16-63) 120 U/L (16-63) Alkaline Phosphatase 167 U/L (46-116) 183 U/L (46-116) Creatine Kinase 934 U/L (39-308) Troponin I Quantitative 0.060 ng/mL (0.000-0.055) SA-Zfy-[id number]-Type Natriuretic Peptide > 90354 pg/mL (0-124) Total Protein 7.3 g/dL (6.4-8.2) 6.1 g/dL (6.4-8.2) Albumin 3.6 g/dL (3.4-5.0) 3.0 g/dL (3.4-5.0) Lipase 590 U/L (73-393) O2 Saturation 97 % (92-99) Arterial Blood pH 7.30 (7.35-7.45) Arterial Blood pCO2 at Patient Temp 18 mmHg (35-46) Arterial Blood pO2 at Patient Temp 108 mmHg (65-108) Arterial Blood HCO3 9 mmol/L (21-28) Arterial Blood Base Excess -16 mmol/L (-3-3) Oxyhemoglobin 96.2 % Methemoglobin 0.7 % (0.0-1.9) Carbon Monoxide, Quantitative 0.3 % (0.0-1.9) FiO2 21 Magnesium Level 1.7 mg/dL (1.8-2.4) BUN/Creatinine Ratio 15 (6-20) Phosphorus Level 11.0 mg/dL (2.6-4.7) Albumin/Globulin Ratio 1.0 (1.0-1.7) Test 04/21/20 06:39 Glucose (Fingerstick) 87 mg/dL (70-99) Laboratory Tests Test 04/20/20 15:15 04/20/20 17:55 04/21/20 05:00 04/21/20 06:00 White Blood Count 4.2 x10^3/uL (4.0-11.0) 2.9 x10^3/uL (4.0-11.0) Red Blood Count 2.70 x10^6/uL (4.30-5.70) 2.19 x10^6/uL (4.30-5.70) Hemoglobin 8.1 g/dL (13.0-17.5) 6.7 g/dL (13.0-17.5) Hematocrit 24.9 % (39.0-53.0) 20.7 % (39.0-53.0) Mean Corpuscular Volume 93 fL (79-100) 95 fL (79-100) Mean Corpuscular Hemoglobin 30 pg (25-35) 31 pg (25-35) Mean Corpuscular Hemoglobin Concent 32 g/dL (31-37) 33 g/dL (31-37) Red Cell Distribution Width 16.0 % (11.5-14.5) 15.5 % (11.5-14.5) Platelet Count 124 x10^3/uL (140-400) 106 x10^3/uL (140-400) Neutrophils (%) (Auto) 76 % (31-73) 69 % (31-73) Lymphocytes (%) (Auto) 13 % (24-48) 16 % (24-48) Monocytes (%) (Auto) 10 % (0-9) 11 % (0-9) Eosinophils (%) (Auto) 1 % (0-3) 2 % (0-3) Basophils (%) (Auto) 1 % (0-3) 1 % (0-3) Neutrophils # (Auto) 3.1 x10^3/uL (1.8-7.7) 2.0 x10^3/uL (1.8-7.7) Lymphocytes # (Auto) 0.5 x10^3/uL (1.0-4.8) 0.5 x10^3/uL (1.0-4.8) Monocytes # (Auto) 0.4 x10^3/uL (0.0-1.1) 0.3 x10^3/uL (0.0-1.1) Eosinophils # (Auto) 0.1 x10^3/uL (0.0-0.7) 0.1 x10^3/uL (0.0-0.7) Basophils # (Auto) 0.0 x10^3/uL (0.0-0.2) 0.0 x10^3/uL (0.0-0.2) Sodium Level 142 mmol/L (136-145) 148 mmol/L (136-145) Potassium Level 6.9 mmol/L (3.5-5.1) 5.6 mmol/L (3.5-5.1) Chloride Level 110 mmol/L (98-107) 110 mmol/L (98-107) Carbon Dioxide Level 11 mmol/L (21-32) 14 mmol/L (21-32) Anion Gap 21 (6-14) 24 (6-14) Blood Urea Nitrogen 211 mg/dL (8-26) 203 mg/dL (8-26) Creatinine 14.1 mg/dL (0.7-1.3) 13.7 mg/dL (0.7-1.3) Estimated GFR (Cockcroft-Gault) 3.5 3.6 Glucose Level 91 mg/dL (70-99) 54 mg/dL (70-99) Calcium Level 5.9 mg/dL (8.5-10.1) 6.4 mg/dL (8.5-10.1) Total Bilirubin 0.4 mg/dL (0.2-1.0) 0.4 mg/dL (0.2-1.0) Direct Bilirubin 0.1 mg/dL (0.0-0.2) Aspartate Amino Transf (AST/SGOT) 44 U/L (15-37) 84 U/L (15-37) Alanine Aminotransferase (ALT/SGPT) 100 U/L (16-63) 120 U/L (16-63) Alkaline Phosphatase 167 U/L (46-116) 183 U/L (46-116) Creatine Kinase 934 U/L (39-308) Troponin I Quantitative 0.060 ng/mL (0.000-0.055) TS-Dzm-Y-Type Natriuretic Peptide > 71281 pg/mL (0-124) Total Protein 7.3 g/dL (6.4-8.2) 6.1 g/dL (6.4-8.2) Albumin 3.6 g/dL (3.4-5.0) 3.0 g/dL (3.4-5.0) Lipase 590 U/L (73-393) O2 Saturation 97 % (92-99) Arterial Blood pH 7.30 (7.35-7.45) Arterial Blood pCO2 at Patient Temp 18 mmHg (35-46) Arterial Blood pO2 at Patient Temp 108 mmHg (65-108) Arterial Blood HCO3 9 mmol/L (21-28) Arterial Blood Base Excess -16 mmol/L (-3-3) Oxyhemoglobin 96.2 % Methemoglobin 0.7 % (0.0-1.9) Carbon Monoxide, Quantitative 0.3 % (0.0-1.9) FiO2 21 Magnesium Level 1.7 mg/dL (1.8-2.4) BUN/Creatinine Ratio 15 (6-20) Phosphorus Level 11.0 mg/dL (2.6-4.7) Albumin/Globulin Ratio 1.0 (1.0-1.7) Test 04/21/20 06:39 Glucose (Fingerstick) 87 mg/dL (70-99) Review All relevant outside records, renal labs, imaging studies, telemetry/EKG's were reviewed. Images Images Chest x-ray in the ER: IMPRESSION: * Hypoexpanded exam with mild patchy interstitial opacity. This could be secondary to crowding of the lung markings from hypoexpansion but mild pulmonary vascular congestion or interstitial infiltrate is not excluded given this finding. CT scan abdomen and pelvis findings: Small right and trace left pleural effusion. Bibasilar atelectasis. Borderline cardiomegaly. Unopacified liver, spleen, pancreas and gallbladder are normal. Bilateral adrena l nodules. Bilateral kidneys are symmetric without hydronephrosis or nephrolithiasis. Diffuse atheromatous aortic calcification. Small and large bowel loops are nondilated and unremarkable. Generalized mesenteric haziness seen around both kidneys perhaps chronic. Appendix is not clearly seen. Mild sigmoid diverticulosis. There is scattered stool in the rectosigmoid region. Diffuse prostatomegaly causing mass effect on the base of urinary bladder which appears somewhat decompressed. Bones are normal. Impression CT Abdomen and pelvis: 1. Small right and trace left pleural effusion. 2. No acute intra-abdominal or pelvic process seen. JORGE OSPINA MD Apr 21, 2020 09:07
[2020-04-21] MEDS: HEPARIN for SUB-Q USE 5,000 UNIT/ML VIAL. SQ SCH ×3 (11:00→21:35)
[2020-04-21] MEDS: CALCIUM CARBONATE 500 MG TAB.CHEW PO SCH ×2 (11:30→17:43)
--- NOTE | 2020-04-21 11:38 | PDOC2 ---
GI CONSULT Date of Service: DATE: 04/21/20 TIME: 11:24 Reason For Consult: Abnormal LFT's HPI: HPI: 69 y/o male we are asked to see re: abnormal LFT's. Denies h/o liver disease. Weight loss, maybe some N, V past 3 months. No h/o IVDU, transfusions, tattoos. No FH of liver disease. Denies pain, HB, dysphagia, PUD, GB, pancreatic history. No tobacco or alcohol use. Variable stools from constipation to loose w/o ongoing diarrhea. Denies overt bleeding, melena. Appetite varies. On labs, modest transaminitis and elevated AP but normal bilirubin. No prior endoscopy. GIFH otherwise negative. Noted to be in renal failure. CT shows some diverticulosis. PMH: PMH: DM, HTN, HLP. Denies surgery. Social History: Smoke: No ALCOHOL: none Drugs: None ROS: GEN: Denies fevers, chills, sweats HEENT: Denies blurred vision, sore throat CV: Denies chest pain RESP: Denies shortness of air, cough GI: Per HPI : Denies hematuria, dysuria ENDO: Weight loss. NEURO: Denies confusion, dizziness MSK: Denies weakness, joint pain/swelling SKIN: Denies jaundice, pruritus Vitals: Vitals: Vital Signs Date Time Temp Pulse Resp B/P (MAP) Pulse Ox O2 Delivery O2 Flow Rate FiO2 04/21/20 10:30 98.0 79 18 154/78 98.0 04/21/20 06:59 100 Room Air Labs: Labs: Laboratory Tests Test 04/20/20 15:15 04/20/20 17:55 04/21/20 05:00 04/21/20 06:00 White Blood Count 4.2 x10^3/uL (4.0-11.0) 2.9 x10^3/uL (4.0-11.0) Red Blood Count 2.70 x10^6/uL (4.30-5.70) 2.19 x10^6/uL (4.30-5.70) Hemoglobin 8.1 g/dL (13.0-17.5) 6.7 g/dL (13.0-17.5) Hematocrit 24.9 % (39.0-53.0) 20.7 % (39.0-53.0) Mean Corpuscular Volume 93 fL (79-100) 95 fL (79-100) Mean Corpuscular Hemoglobin 30 pg (25-35) 31 pg (25-35) Mean Corpuscular Hemoglobin Concent 32 g/dL (31-37) 33 g/dL (31-37) Red Cell Distribution Width 16.0 % (11.5-14.5) 15.5 % (11.5-14.5) Platelet Count 124 x10^3/uL (140-400) 106 x10^3/uL (140-400) Neutrophils (%) (Auto) 76 % (31-73) 69 % (31-73) Lymphocytes (%) (Auto) 13 % (24-48) 16 % (24-48) Monocytes (%) (Auto) 10 % (0-9) 11 % (0-9) Eosinophils (%) (Auto) 1 % (0-3) 2 % (0-3) Basophils (%) (Auto) 1 % (0-3) 1 % (0-3) Neutrophils # (Auto) 3.1 x10^3/uL (1.8-7.7) 2.0 x10^3/uL (1.8-7.7) Lymphocytes # (Auto) 0.5 x10^3/uL (1.0-4.8) 0.5 x10^3/uL (1.0-4.8) Monocytes # (Auto) 0.4 x10^3/uL (0.0-1.1) 0.3 x10^3/uL (0.0-1.1) Eosinophils # (Auto) 0.1 x10^3/uL (0.0-0.7) 0.1 x10^3/uL (0.0-0.7) Basophils # (Auto) 0.0 x10^3/uL (0.0-0.2) 0.0 x10^3/uL (0.0-0.2) Sodium Level 142 mmol/L (136-145) 148 mmol/L (136-145) Potassium Level 6.9 mmol/L (3.5-5.1) 5.6 mmol/L (3.5-5.1) Chloride Level 110 mmol/L (98-107) 110 mmol/L (98-107) Carbon Dioxide Level 11 mmol/L (21-32) 14 mmol/L (21-32) Anion Gap 21 (6-14) 24 (6-14) Blood Urea Nitrogen 211 mg/dL (8-26) 203 mg/dL (8-26) Creatinine 14.1 mg/dL (0.7-1.3) 13.7 mg/dL (0.7-1.3) Estimated GFR (Cockcroft-Gault) 3.5 3.6 Glucose Level 91 mg/dL (70-99) 54 mg/dL (70-99) Calcium Level 5.9 mg/dL (8.5-10.1) 6.4 mg/dL (8.5-10.1) Total Bilirubin 0.4 mg/dL (0.2-1.0) 0.4 mg/dL (0.2-1.0) Direct Bilirubin 0.1 mg/dL (0.0-0.2) Aspartate Amino Transf (AST/SGOT) 44 U/L (15-37) 84 U/L (15-37) Alanine Aminotransferase (ALT/SGPT) 100 U/L (16-63) 120 U/L (16-63) Alkaline Phosphatase 167 U/L (46-116) 183 U/L (46-116) Creatine Kinase 934 U/L (39-308) Troponin I Quantitative 0.060 ng/mL (0.000-0.055) WM-Ixa-D-Type Natriuretic Peptide > 74259 pg/mL (0-124) Total Protein 7.3 g/dL (6.4-8.2) 6.1 g/dL (6.4-8.2) Albumin 3.6 g/dL (3.4-5.0) 3.0 g/dL (3.4-5.0) Lipase 590 U/L (73-393) O2 Saturation 97 % (92-99) Arterial Blood pH 7.30 (7.35-7.45) Arterial Blood pCO2 at Patient Temp 18 mmHg (35-46) Arterial Blood pO2 at Patient Temp 108 mmHg (65-108) Arterial Blood HCO3 9 mmol/L (21-28) Arterial Blood Base Excess -16 mmol/L (-3-3) Oxyhemoglobin 96.2 % Methemoglobin 0.7 % (0.0-1.9) Carbon Monoxide, Quantitative 0.3 % (0.0-1.9) FiO2 21 Magnesium Level 1.7 mg/dL (1.8-2.4) BUN/Creatinine Ratio 15 (6-20) Phosphorus Level 11.0 mg/dL (2.6-4.7) Albumin/Globulin Ratio 1.0 (1.0-1.7) Test 04/21/20 06:39 Glucose (Fingerstick) 87 mg/dL (70-99) Normocytic anemia but elevated RDW. World-class PO4. Metabolic acidiosis. Elevated CK. Allergies: Coded Allergies: No Known Drug Allergies (Unverified , 04/20/20) Medications: Current Medications Medications (Trade) Dose Ordered Sig/Mary Route PRN Reason Start Time Stop Time Status Last Admin Dose Admin Ceftriaxone Sodium (Rocephin) 1 gm 1X ONCE IVP 04/20/20 16:15 04/20/20 16:17 DC 04/20/20 17:42 Azithromycin 250 ml @ 250 mls/hr 1X ONCE IV 04/20/20 16:15 04/20/20 17:14 DC 04/20/20 17:45 Aspirin (Aspirin Chewable) 324 mg 1X ONCE PO 04/20/20 16:15 04/20/20 16:17 DC 04/20/20 17:48 Calcium Gluconate (Calcium Gluconate) 1,000 mg 1X ONCE IVP 04/20/20 16:45 04/20/20 16:46 DC 04/20/20 17:34 Sodium Bicarbonate (Sodium Bicarb Adult 8.4% Syr) 50 meq 1X ONCE IV 04/20/20 16:45 04/20/20 16:46 DC 04/20/20 17:32 Sodium Bicarbonate 150 meq/Sterile Water 1,150 ml @ 125 mls/hr Q9H12M IV 04/20/20 19:00 04/21/20 02:59 DC 04/20/20 19:43 Calcium Gluconate (Calcium Gluconate) 1,000 mg Q3H IVP 04/20/20 19:00 04/21/20 01:01 DC 04/21/20 00:37 Sodium Polystyrene Sulfonate (Kayexalate) 45 gm 1X ONCE PO 04/20/20 19:00 04/20/20 19:01 DC 04/20/20 20:16 Heparin Sodium (Porcine) (Heparin Sodium) 5,000 unit Q8HRS SQ 04/20/20 22:00 04/21/20 11:00 Calcium Gluconate (Calcium Gluconate) 1,000 mg 1X ONCE IVP 04/21/20 04:15 04/21/20 04:16 DC 04/21/20 04:14 Sodium Polystyrene Sulfonate (Kayexalate) 15 gm 1X ONCE PO 04/21/20 08:45 04/21/20 08:49 DC 04/21/20 10:59 Imaging: Imaging: On CT: Exam performed: CT scan of the abdomen and pelvis with contrast Indication: Elevated bilirubin Date of Service: 04/20/2020. Comparison: None available Technique: Contiguous helical acquisitions are obtained through the abdomen and pelvis without IV contrast In addition sagittal and coronal reformatted images are obtained and reviewed. CT scan abdomen and pelvis findings: Small right and trace left pleural effusion. Bibasilar atelectasis. Borderline cardiomegaly. Unopacified liver, spleen, pancreas and gallbladder are normal. Bilateral adre nal nodules. Bilateral kidneys are symmetric without hydronephrosis or nephrolithiasis. Diffuse atheromatous aortic calcification. Small and large bowel loops are nondilated and unremarkable. Generalized mesenteric haziness seen around both kidneys perhaps chronic. Appendix is not clearly seen. Mild sigmoid diverticulosis. There is scattered stool in the rectosigmoid region. Diffuse prostatomegaly causing mass effect on the base of urinary bladder which appears somewhat decompressed. Bones are normal. Impression CT Abdomen and pelvis: 1. Small right and trace left pleural effusion. 2. No acute intra-abdominal or pelvic process seen. PE: GEN: NAD HEENT: Atraumatic, PERRLA LUNGS: CTAB HEART: RRR, no murmurs ABD: NABS, S/ND/NT, no masses EXTREMITY: No edema SKIN: No rashes, no jaundice NEURO/PSYCH: A & O 3 A/P: A/P: IMP: Elevated LFT's. No risk factors save diabetes. No apparent biliary disease. With elevated CK, some transaminases may be from muscle. Given elevated PO4, likely has secondary hyperPTH to account for the AP. Anemia, not clearly from chronic bleeding. May be due to renal disease. No prior CRC screening. Prostatic enlargement. Probably not the cause of renal failure with decompressed bladder. REC: Continue w/u, treatment of renal issues. Hepatitis markers, iron studies, B12 Further rec's pending. CHICO NICOLAS MD Apr 21, 2020 11:38
[2020-04-21 11:49] LABS: HEMATOCRIT 23.7 % (39.0-53.0); HEMOGLOBIN 7.7 g/dL (13.0-17.5)
--- NOTE | 2020-04-21 12:04 | PDOC ---
FOLLOW UP Hematology Note: Ms Pablo is a 69 year old female with DM2 who has been admitted with renal i nsufficiency of unclear chronicity. Nephrology is following for evaluation of SAVANNAH/CKD. Lab evaluation has also shown normocytic anemia and mild thrombocytopenia. Hematology consultation has been sought due to anemia and thrombocytopenia. Assessment: Renal insufficiency, SAVANNAH vs CKD Normocytic anemia Thrombocytopenia Leucopenia Recommendations: -Check CBC with peripheral smear and reticulocyte count, LDH and haptoglobin -Check iron studies, B12 -Check SPEP, FLC given anemia and renal insufficiency -Consider bone marrow biopsy based on the above work-up. -Full consult to follow. EDI RODRIGUEZ MD Apr 21, 2020 12:04
--- NOTE | 2020-04-21 12:22 | RAD ---
Renal ultrasound 04/21/2020. Reason for exam: Acute renal failure. FINDINGS: The kidneys show normal cortical thickness and echogenicity without apparent mass or obstru ction. The right kidney measures 8.3 cm in length and the left kidney measures 9.7 cm. Bladder images were not obtained. IMPRESSION: No evidence of obstruction. Electronically signed by: Alexsander Hoang Jr., MD (04/21/2020 12:20 PM) [id number]
[2020-04-21 12:39] LABS: URIC ACID 7.1 mg/dL (3.5-7.2)
--- NOTE | 2020-04-21 13:07 | RAD ---
Exam performed: Limited right upper quadrant sonogram. Indication: Elevated liver function test Date of Service: 04/21/2020 . Comparison:None available Technique: Real-time grayscale imaging of the right upper abdomen is performed and images are obtaine d. Findings: Diffuse mild hepatic steatosis. The liver measures 15.4 cm in length. There is no intra or extrahepa tic biliary ductal dilatation. The common bile duct measures2.9 mm. The gallbladder is well distend ed without any shadowing intraluminal calculus, pericholecystic fluid or gallbladder wall thickening. The gallbladder wall measures 2.0 mm. Sonographic Ricketts's sign is not reported by the technologist . The right kidney appears unremarkable and measures 10.1 x 5.0 x 5.5 cm in size. There is no hydro nephrosis or perinephric fluid collection. Pancreas, IVC and aorta are suboptimally visualized due to overlying bowel gas. Small right pleural effusion. Impression: 1. Diffuse hepatic steatosis. 2. Small right pleural effusion. Electronically signed by: Tia Sorto MD (04/21/2020 1:05 PM) [facility]
--- NOTE | 2020-04-21 14:57 | PDOC2 ---
CONSULT Date of Consult Date of Consult DATE: 04/21/20 TIME: 14:51 Reason for Consult Reason for Consult: Possible heart failure, minimally elevated troponin. Referring Physician Referring Physician: Dr. Gonzalez Identification/Chief Complaint Chief Complaint Weakness, progressive Source Source: Chart review, Patient History of Present Illness Reason for Visit: The patient is a 69-year-old male who was admitted from the emergency room for progressive generalized weakness. Initial lab testing showed a hemoglobin of 8.6 hemoglobin 8.1, potassium 6.9 and a creatinine of 14.1. BNP was greater than 35,000. Troponin was 0.06. Patient has been seen by the renal service and evaluated for acute renal failure. Hemodialysis is being planned. Overnight the patient's hemoglobin hematocrit fell to 6.7 and 20.7. He has been transfused. He is been seen by the GI service. From a cardiac viewpoint the patient denies any chest pain. He has no acute ischemic changes on EKG. Chest x-ray shows mild patchy interstitial opacities and was read that an infiltrate cannot be ruled out. The patient is more alert today than described yesterday. He is a limited historian. Past Medical History Cardiovascular: HTN Past Surgical History Past Surgical History: No pertinent history Family History Family History: Hypertension Social History No ALCOHOL: none Drugs: None Lives: Alone Current Problem List Problem List Problems Medical Problems: (1) Elevated troponin Status: Acute (2) PNA (pneumonia) Status: Acute Current Medications Current Medications Current Medications Ceftriaxone Sodium (Rocephin) 1 gm 1X ONCE IVP Last administered on 04/20/20at 17:42; Start 04/20/20 at 16:15; Stop 04/20/20 at 16:17; Status DC Azithromycin 250 ml @ 250 mls/hr 1X ONCE IV Last administered on 04/20/20at 17:45; Start 04/20/20 at 16:15; Stop 04/20/20 at 17:14; Status DC Aspirin (Aspirin Chewable) 324 mg 1X ONCE PO Last administered on 04/20/20at 17:48; Start 04/20/20 at 16:15; Stop 04/20/20 at 16:17; Status DC Calcium Gluconate (Calcium Gluconate) 1,000 mg 1X ONCE IVP Last administered on 04/20/20at 17:34; Start 04/20/20 at 16:45; Stop 04/20/20 at 16:46; Status DC Sodium Bicarbonate (Sodium Bicarb Adult 8.4% Syr) 50 meq 1X ONCE IV Last administered on 04/20/20at 17:32; Start 04/20/20 at 16:45; Stop 04/20/20 at 16:46; Status DC Sodium Bicarbonate 150 meq/Sterile Water 1,150 ml @ 125 mls/hr Q9H12M IV Last administered on 04/20/20at 19:43; Start 04/20/20 at 19:00; Stop 04/21/20 at 02:59; Status DC Magnesium Sulfate 50 ml @ 25 mls/hr PRN DAILY PRN IV for Mag < 1.7 on am labs; Start 04/20/20 at 18:45 Calcium Gluconate (Calcium Gluconate) 1,000 mg Q3H IVP Last administered on 04/21/20at 00:37; Start 04/20/20 at 19:00; Stop 04/21/20 at 01:01; Status DC Sodium Polystyrene Sulfonate (Kayexalate) 45 gm 1X ONCE PO Last administered on 04/20/20at 20:16; Start 04/20/20 at 19:00; Stop 04/20/20 at 19:01; Status DC Ondansetron HCl (Zofran) 4 mg PRN Q6HRS PRN IVP NAUSEA/VOMITING; Start 04/20/20 at 19:45 Al Hydroxide/Mg Hydroxide (Mylanta Plus Xs) 30 ml PRN Q3HRS PRN PO HEARTBURN / GAS; Start 04/20/20 at 19:45 Calcium Carbonate/ Glycine (Tums) 500 mg PRN Q3HRS PRN PO UPSET STOMACH; Start 04/20/20 at 19:45 Magnesium Hydroxide (Milk Of Magnesia) 2,400 mg PRN Q12HR PRN PO CONSTIPATION; Start 04/20/20 at 19:45 Bisacodyl (Dulcolax Supp) 10 mg PRN DAILY PRN MA CONSTIPATION; Start 04/20/20 at 19:45 Heparin Sodium (Porcine) (Heparin Sodium) 5,000 unit Q8HRS SQ Last administered on 04/21/20at 11:00; Start 04/20/20 at 22:00 Calcium Gluconate (Calcium Gluconate) 1,000 mg 1X ONCE IVP Last administered on 04/21/20at 04:14; Start 04/21/20 at 04:15; Stop 04/21/20 at 04:16; Status DC Calcium Carbonate/ Glycine (Tums) 2,000 mg TIDAC PO ; Start 04/21/20 at 11:30 Sodium Polystyrene Sulfonate (Kayexalate) 15 gm 1X ONCE PO Last administered on 04/21/20at 10:59; Start 04/21/20 at 08:45; Stop 04/21/20 at 08:49; Status DC Allergies Allergies: Coded Allergies: No Known Drug Allergies (Unverified , 04/20/20) ROS General: YES: Fatigue, Malaise Respiratory: YES: SOB with excertion Physical Exam General: mild distress HEENT: Atraumatic Lungs: Other (Decreased breath sounds) Heart: Regular rate Abdomen: Normal bowel sounds Vitals VITALS Vital Signs Date Time Temp Pulse Resp B/P (MAP) Pulse Ox O2 Delivery O2 Flow Rate FiO2 04/21/20 10:30 98.0 79 18 154/78 98.0 04/21/20 06:59 100 Room Air Labs Labs Laboratory Tests Test 04/20/20 15:15 04/20/20 17:55 04/21/20 05:00 04/21/20 05:15 White Blood Count 4.2 x10^3/uL (4.0-11.0) Red Blood Count 2.70 x10^6/uL (4.30-5.70) 2.18 x10^6/uL (4.30-5.70) Hemoglobin 8.1 g/dL (13.0-17.5) Hematocrit 24.9 % (39.0-53.0) Mean Corpuscular Volume 93 fL (79-100) Mean Corpuscular Hemoglobin 30 pg (25-35) Mean Corpuscular Hemoglobin Concent 32 g/dL (31-37) Red Cell Distribution Width 16.0 % (11.5-14.5) Platelet Count 124 x10^3/uL (140-400) Neutrophils (%) (Auto) 76 % (31-73) Lymphocytes (%) (Auto) 13 % (24-48) Monocytes (%) (Auto) 10 % (0-9) Eosinophils (%) (Auto) 1 % (0-3) Basophils (%) (Auto) 1 % (0-3) Neutrophils # (Auto) 3.1 x10^3/uL (1.8-7.7) Lymphocytes # (Auto) 0.5 x10^3/uL (1.0-4.8) Monocytes # (Auto) 0.4 x10^3/uL (0.0-1.1) Eosinophils # (Auto) 0.1 x10^3/uL (0.0-0.7) Basophils # (Auto) 0.0 x10^3/uL (0.0-0.2) Sodium Level 142 mmol/L (136-145) Potassium Level 6.9 mmol/L (3.5-5.1) Chloride Level 110 mmol/L (98-107) Carbon Dioxide Level 11 mmol/L (21-32) Anion Gap 21 (6-14) Blood Urea Nitrogen 211 mg/dL (8-26) Creatinine 14.1 mg/dL (0.7-1.3) Estimated GFR (Cockcroft-Gault) 3.5 Glucose Level 91 mg/dL (70-99) Calcium Level 5.9 mg/dL (8.5-10.1) Total Bilirubin 0.4 mg/dL (0.2-1.0) Direct Bilirubin 0.1 mg/dL (0.0-0.2) Aspartate Amino Transf (AST/SGOT) 44 U/L (15-37) Alanine Aminotransferase (ALT/SGPT) 100 U/L (16-63) Alkaline Phosphatase 167 U/L (46-116) Creatine Kinase 934 U/L (39-308) Troponin I Quantitative 0.060 ng/mL (0.000-0.055) WM-Lbl-B-Type Natriuretic Peptide > 56870 pg/mL (0-124) Total Protein 7.3 g/dL (6.4-8.2) Albumin 3.6 g/dL (3.4-5.0) Lipase 590 U/L (73-393) O2 Saturation 97 % (92-99) Arterial Blood pH 7.30 (7.35-7.45) Arterial Blood pCO2 at Patient Temp 18 mmHg (35-46) Arterial Blood pO2 at Patient Temp 108 mmHg (65-108) Arterial Blood HCO3 9 mmol/L (21-28) Arterial Blood Base Excess -16 mmol/L (-3-3) Oxyhemoglobin 96.2 % Methemoglobin 0.7 % (0.0-1.9) Carbon Monoxide, Quantitative 0.3 % (0.0-1.9) FiO2 21 Magnesium Level 1.7 mg/dL (1.8-2.4) Absolute Reticulocyte Count 0.021 x10^6/uL (0.020-0.120) Percent Reticulocyte Count 1.0 % (0.5-2.3) Immature Reticulocyte Fraction 0.39 (0.20-0.60) Uric Acid 7.1 mg/dL (3.5-7.2) Iron Level 35 ug/dL (65-175) Total Iron Binding Capacity 161 ug/dL (250-450) Iron Saturation 22 % (15-34) Ferritin 375 ng/mL (26-388) Lactate Dehydrogenase 400 U/L (85-227) Test 04/21/20 06:00 04/21/20 06:39 04/21/20 11:40 White Blood Count 2.9 x10^3/uL (4.0-11.0) Red Blood Count 2.19 x10^6/uL (4.30-5.70) Hemoglobin 6.7 g/dL (13.0-17.5) 7.7 g/dL (13.0-17.5) Hematocrit 20.7 % (39.0-53.0) 23.7 % (39.0-53.0) Mean Corpuscular Volume 95 fL (79-100) Mean Corpuscular Hemoglobin 31 pg (25-35) Mean Corpuscular Hemoglobin Concent 33 g/dL (31-37) 33 g/dL (31-37) Red Cell Distribution Width 15.5 % (11.5-14.5) Platelet Count 106 x10^3/uL (140-400) Neutrophils (%) (Auto) 69 % (31-73) Lymphocytes (%) (Auto) 16 % (24-48) Monocytes (%) (Auto) 11 % (0-9) Eosinophils (%) (Auto) 2 % (0-3) Basophils (%) (Auto) 1 % (0-3) Neutrophils # (Auto) 2.0 x10^3/uL (1.8-7.7) Lymphocytes # (Auto) 0.5 x10^3/uL (1.0-4.8) Monocytes # (Auto) 0.3 x10^3/uL (0.0-1.1) Eosinophils # (Auto) 0.1 x10^3/uL (0.0-0.7) Basophils # (Auto) 0.0 x10^3/uL (0.0-0.2) Sodium Level 148 mmol/L (136-145) Potassium Level 5.6 mmol/L (3.5-5.1) Chloride Level 110 mmol/L (98-107) Carbon Dioxide Level 14 mmol/L (21-32) Anion Gap 24 (6-14) Blood Urea Nitrogen 203 mg/dL (8-26) Creatinine 13.7 mg/dL (0.7-1.3) Estimated GFR (Cockcroft-Gault) 3.6 BUN/Creatinine Ratio 15 (6-20) Glucose Level 54 mg/dL (70-99) Calcium Level 6.4 mg/dL (8.5-10.1) Phosphorus Level 11.0 mg/dL (2.6-4.7) Total Bilirubin 0.4 mg/dL (0.2-1.0) Aspartate Amino Transf (AST/SGOT) 84 U/L (15-37) Alanine Aminotransferase (ALT/SGPT) 120 U/L (16-63) Alkaline Phosphatase 183 U/L (46-116) Total Protein 6.1 g/dL (6.4-8.2) Albumin 3.0 g/dL (3.4-5.0) Albumin/Globulin Ratio 1.0 (1.0-1.7) Glucose (Fingerstick) 87 mg/dL (70-99) Laboratory Tests Test 04/20/20 15:15 04/20/20 17:55 04/21/20 05:00 04/21/20 05:15 White Blood Count 4.2 x10^3/uL (4.0-11.0) Red Blood Count 2.70 x10^6/uL (4.30-5.70) 2.18 x10^6/uL (4.30-5.70) Hemoglobin 8.1 g/dL (13.0-17.5) Hematocrit 24.9 % (39.0-53.0) Mean Corpuscular Volume 93 fL (79-100) Mean Corpuscular Hemoglobin 30 pg (25-35) Mean Corpuscular Hemoglobin Concent 32 g/dL (31-37) Red Cell Distribution Width 16.0 % (11.5-14.5) Platelet Count 124 x10^3/uL (140-400) Neutrophils (%) (Auto) 76 % (31-73) Lymphocytes (%) (Auto) 13 % (24-48) Monocytes (%) (Auto) 10 % (0-9) Eosinophils (%) (Auto) 1 % (0-3) Basophils (%) (Auto) 1 % (0-3) Neutrophils # (Auto) 3.1 x10^3/uL (1.8-7.7) Lymphocytes # (Auto) 0.5 x10^3/uL (1.0-4.8) Monocytes # (Auto) 0.4 x10^3/uL (0.0-1.1) Eosinophils # (Auto) 0.1 x10^3/uL (0.0-0.7) Basophils # (Auto) 0.0 x10^3/uL (0.0-0.2) Sodium Level 142 mmol/L (136-145) Potassium Level 6.9 mmol/L (3.5-5.1) Chloride Level 110 mmol/L (98-107) Carbon Dioxide Level 11 mmol/L (21-32) Anion Gap 21 (6-14) Blood Urea Nitrogen 211 mg/dL (8-26) Creatinine 14.1 mg/dL (0.7-1.3) Estimated GFR (Cockcroft-Gault) 3.5 Glucose Level 91 mg/dL (70-99) Calcium Level 5.9 mg/dL (8.5-10.1) Total Bilirubin 0.4 mg/dL (0.2-1.0) Direct Bilirubin 0.1 mg/dL (0.0-0.2) Aspartate Amino Transf (AST/SGOT) 44 U/L (15-37) Alanine Aminotransferase (ALT/SGPT) 100 U/L (16-63) Alkaline Phosphatase 167 U/L (46-116) Creatine Kinase 934 U/L (39-308) Troponin I Quantitative 0.060 ng/mL (0.000-0.055) HN-Okt-K-Type Natriuretic Peptide > 62782 pg/mL (0-124) Total Protein 7.3 g/dL (6.4-8.2) Albumin 3.6 g/dL (3.4-5.0) Lipase 590 U/L (73-393) O2 Saturation 97 % (92-99) Arterial Blood pH 7.30 (7.35-7.45) Arterial Blood pCO2 at Patient Temp 18 mmHg (35-46) Arterial Blood pO2 at Patient Temp 108 mmHg (65-108) Arterial Blood HCO3 9 mmol/L (21-28) Arterial Blood Base Excess -16 mmol/L (-3-3) Oxyhemoglobin 96.2 % Methemoglobin 0.7 % (0.0-1.9) Carbon Monoxide, Quantitative 0.3 % (0.0-1.9) FiO2 21 Magnesium Level 1.7 mg/dL (1.8-2.4) Absolute Reticulocyte Count 0.021 x10^6/uL (0.020-0.120) Percent Reticulocyte Count 1.0 % (0.5-2.3) Immature Reticulocyte Fraction 0.39 (0.20-0.60) Uric Acid 7.1 mg/dL (3.5-7.2) Iron Level 35 ug/dL (65-175) Total Iron Binding Capacity 161 ug/dL (250-450) Iron Saturation 22 % (15-34) Ferritin 375 ng/mL (26-388) Lactate Dehydrogenase 400 U/L (85-227) Test 04/21/20 06:00 04/21/20 06:39 04/21/20 11:40 White Blood Count 2.9 x10^3/uL (4.0-11.0) Red Blood Count 2.19 x10^6/uL (4.30-5.70) Hemoglobin 6.7 g/dL (13.0-17.5) 7.7 g/dL (13.0-17.5) Hematocrit 20.7 % (39.0-53.0) 23.7 % (39.0-53.0) Mean Corpuscular Volume 95 fL (79-100) Mean Corpuscular Hemoglobin 31 pg (25-35) Mean Corpuscular Hemoglobin Concent 33 g/dL (31-37) 33 g/dL (31-37) Red Cell Distribution Width 15.5 % (11.5-14.5) Platelet Count 106 x10^3/uL (140-400) Neutrophils (%) (Auto) 69 % (31-73) Lymphocytes (%) (Auto) 16 % (24-48) Monocytes (%) (Auto) 11 % (0-9) Eosinophils (%) (Auto) 2 % (0-3) Basophils (%) (Auto) 1 % (0-3) Neutrophils # (Auto) 2.0 x10^3/uL (1.8-7.7) Lymphocytes # (Auto) 0.5 x10^3/uL (1.0-4.8) Monocytes # (Auto) 0.3 x10^3/uL (0.0-1.1) Eosinophils # (Auto) 0.1 x10^3/uL (0.0-0.7) Basophils # (Auto) 0.0 x10^3/uL (0.0-0.2) Sodium Level 148 mmol/L (136-145) Potassium Level 5.6 mmol/L (3.5-5.1) Chloride Level 110 mmol/L (98-107) Carbon Dioxide Level 14 mmol/L (21-32) Anion Gap 24 (6-14) Blood Urea Nitrogen 203 mg/dL (8-26) Creatinine 13.7 mg/dL (0.7-1.3) Estimated GFR (Cockcroft-Gault) 3.6 BUN/Creatinine Ratio 15 (6-20) Glucose Level 54 mg/dL (70-99) Calcium Level 6.4 mg/dL (8.5-10.1) Phosphorus Level 11.0 mg/dL (2.6-4.7) Total Bilirubin 0.4 mg/dL (0.2-1.0) Aspartate Amino Transf (AST/SGOT) 84 U/L (15-37) Alanine Aminotransferase (ALT/SGPT) 120 U/L (16-63) Alkaline Phosphatase 183 U/L (46-116) Total Protein 6.1 g/dL (6.4-8.2) Albumin 3.0 g/dL (3.4-5.0) Albumin/Globulin Ratio 1.0 (1.0-1.7) Glucose (Fingerstick) 87 mg/dL (70-99) Images Images Chest x-ray shows mild patchy interstitial opacities. CT of the abdomen and pelvis show a small right and a trace left pleural effusion. Assessment/Plan Assessment/Plan 1. Acute renal failure. The patient has been seen and evaluated by the renal service. They are arranging hemodialysis. 2. Acute anemia. Hemoglobin hematocrit today of 6.7 and 20.7. Has been transfused and work-up is continuing. 3. Elevated liver function testing. GI is evaluating. 4. Minimally elevated troponin at 0.06. No acute ischemic EKG changes. We will check an echocardiogram and monitor. 5. Elevated BNP at greater than 35,000. Renal evaluation as above with upcoming hemodialysis. Will check an echocardiogram also as above. 6. Hypertension. Blood pressure is under better control. We will continue to monitor. Thank you for allowing us to participate in the care of your patient. MATILDA CORTES MD Apr 21, 2020 14:57
--- NOTE | 2020-04-21 21:36 | NUR ---
2200 Heparin not given. It was just given 3 hrs ago.
[2020-04-22 03:00] VITALS: BP 142/94
[2020-04-22] MEDS: HEPARIN for SUB-Q USE 5,000 UNIT/ML VIAL. SQ SCH ×2 (05:47→14:00)
[2020-04-22 07:00] VITALS: BP 157/89
[2020-04-22 07:12] LABS: BILIRUBIN,URINE NEGATIVE (NEG); CLARITY,URINE CLEAR; COLOR,URINE YELLOW; NITRITE,URINE NEGATIVE (NEG); PH,URINE 5.5 (<5.0-8.0); PROTEIN,URINE 100 mg/dL (NEG-TRACE); UROBILINOGEN,URINE 0.2 mg/dL (0.2 mg/dL)
[2020-04-22 07:20] LABS: BASO # 0.1 x10^3/uL (0.0-0.2); BASO % 1 % (0-3); EOS # 0.1 x10^3/uL (0.0-0.7); EOS % 3 % (0-3); HEMATOCRIT 24.4 % (39.0-53.0); LYMPH # 0.8 x10^3/uL (1.0-4.8); LYMPH % 20 % (24-48); MEAN CORPUSCULAR HEMOGLOBIN 30 pg (25-35); MEAN CORPUSCULAR HGB CONC 33 g/dL (31-37); MEAN CORPUSCULAR VOLUME 91 fL (79-100); MONO # 0.5 x10^3/uL (0.0-1.1); MONO % 12 % (0-9); NEUT # 2.4 x10^3/uL (1.8-7.7); NEUT % 63 % (31-73); PLATELET COUNT 113 x10^3/uL (140-400); RED BLOOD COUNT 2.68 x10^6/uL (4.30-5.70); RED CELL DISTRIBUTION WIDTH 15.4 % (11.5-14.5); WHITE BLOOD COUNT 3.9 x10^3/uL (4.0-11.0)
[2020-04-22 07:21] LABS: ALBUMIN 3.1 g/dL (3.4-5.0); CREATININE 13.8 mg/dL (0.7-1.3); GFR 3.6; POTASSIUM 5.4 mmol/L (3.5-5.1)
[2020-04-22 07:22] LABS: PHOSPHORUS 11.1 mg/dL (2.6-4.7)
[2020-04-22] MEDS: CALCIUM CARBONATE 500 MG TAB.CHEW PO SCH ×2 (07:30→11:30)
[2020-04-22 08:20] LABS: BACTERIA,URINE MODERATE /HPF (0-FEW)
[2020-04-22 08:35] LABS: PROTHROMBIN TIME PATIENT 15.9 SEC (11.7-14.0)
--- NOTE | 2020-04-22 10:12 | EKG ---
[facility] [address] [place] [address] Test Date: 2020-04-20 Test Time: 15:51:39 Pat Name: ARLETTE BARRETT Department: Room: Gender: M Fulfillment Associate: : 1950 Requested By: JAYNE ECKERT Order Number: [id number] Reading MD: Measurements Intervals [place] Rate: 91 P: -43 ND: 120 QRS: -7 QRSD: 108 T: 94 QT: 402 QTc: 496 Interpretive Statements SINUS RHYTHM LEFTWARD AXIS T ABNORMALITY IN HIGH LATERAL LEADS PROLONGED QT ABNORMAL ECG RI6.02 No previous ECG available for comparison
--- NOTE | 2020-04-22 10:37 | PDOC ---
PROGRESS NOTES Date of Service: DATE: 04/22/20 TIME: 10:36 Chief Complaint Chief Complaint IMPRESSION Acute renal failure Hyperkalemia Hypocalcemia, renal to dialyze today Transaminitis Jaundice Elevated BNP Elevated troponins Plan: Consult nephrology for acute renal failure; initiated on hemodialysis consult gi Patient received calcium gluconate and sodium bicarb. Placed on bicarb drip. Consult to cardiology for elevated troponins, will continue to trend. Will consult GI for transaminitis and jaundice. Chest x-ray on admission shows patchy interstitial opacities, could be secondary to vascular congestion or infiltrates. Afebrile, nontoxic-appearing. Will tr eat empirically with renally dosed cefepime 1 g every 24 for possible community- acquired pneumonia. Unintentional weight loss of constitutional symptoms consistent with malignancy, but no clear source or etiology identified at this time. FEN - regular diet PPX - Heparin Sono with fatty liver. likely source of elevated LFT's. FULL CODE Dispo - inpatient for above Patient is a surrogate decision-maker as Brian Meade (family friend). Phone number: [phone] 38 min pt exam, chart review, > 50% of time spent with exam, chart review, pt care coordination History of Present Illness History of Present Illness Patient 69-year-old male no stated past medical history who resents to the ER with complaint of generalized weakness for the past 3 months. Over this time patient notes associated 40 pound unintentional weight loss, and constitutional symptoms of night sweats and intermittent nocturnal fevers. He lives alone and presents to the ED at the behest of his family friend, who has been urging patient to be seen by a doctor for the past several months. Upon evaluation in the ER he is noted to be jaundice with icteric sclera. He states he has not urinated today, and upon evaluation in the ER he was noted to be in renal failur e. Patient is alert and oriented to self and place. He really does not have any complaints except for admitted weakness, and he requires much prodding to obtain information. Will admit patient for further medical management. 04/21: Patient without complaints today. Hemoglobin 6.7, potassium improved. Ordered 2 units pRBC. Due to presenting symptoms of weakness and intermittent fevers. Will swab patient for COVID-19. He may transfer 6th floor. Denies fever or nausea. 1-25 renal fx worse, starting dialysis 1-25, recent 40 lb weight lossSono c/w fatty liver. likely source of elevated LFT's. needs RENAL BIOPSY JOSE ALBERTO NON CA BINDERS Vitals Vitals Vital Signs Date Time Temp Pulse Resp B/P (MAP) Pulse Ox O2 Delivery O2 Flow Rate FiO2 04/22/20 07:00 98.1 90 16 157/89 (111) 99 Room Air 98.1 Physical Exam General: Alert, Oriented X3, Cooperative, mild distress Heart: Regular rate Lungs: Clear Abdomen: Normal bowel sounds Extremities: No cyanosis, No edema, Normal pulses Skin: Other (Jaundiced) Labs LABS Exam performed: CT scan of the abdomen and pelvis with contrast Indication: Elevated bilirubin Date of Service: 04/20/2020. Comparison: None available Technique: Contiguous helical acquisitions are obtained through the abdomen and pelvis without IV contrast In addition sagittal and coronal reformatted images are obtained and reviewed. CT scan abdomen and pelvis findings: Small right and trace left pleural effusion. Bibasilar atelectasis. Borderline cardiomegaly. Unopacified liver, spleen, pancreas and gallbladder are normal. Bilateral adrenal nodules. Bilateral kidneys are symmetric without hydronephrosis or nephrolithiasis. Diffuse atheromatous aortic calcification. Small and large bowel loops are nondilated and unremarkable. Generalized mesenteric haziness seen around both kidneys perhaps chronic. Appendix is not clearly seen. Mild sigmoid diverticulosis. There is scattered stool in the rectosigmoid region. Diffuse prostatomegaly causing mass effect on the base of urinary bladder which appears somewhat decompressed. Bones are normal. Impression CT Abdomen and pelvis: 1. Small right and trace left pleural effusion. 2. No acute intra-abdominal or pelvic process seen. PQRS Compliance Statement: One or more of the following individualized dose reduction techniques were utilized for this examination: 1. Automated exposure control 2. Adjustment of the mA and/or kV according to patient size 3. Use of iterative reconstruction technique Electronically signed by: Tia Sorto MD (04/20/2020 7:00 PM) [facility] DICTATED and SIGNED BY: TIA SORTO MD DATE: 04/20/20 [id number] PATIENT: ARLETTE BARRETT ACCOUNT: [id number] : 1950 LOCATION: ED HOLD AGE: 69 SEX: M EXAM STATUS: ADM IN ORD. PHYSICIAN: CHICO NICOLAS MD REASON: Elevated LFTs. PROCEDURE: ABDOMEN LTD Exam performed: Limited right upper quadrant sonogram. Indication: Elevated liver function test Date of Service: 04/21/2020 . Comparison:None available Technique: Real-time grayscale imaging of the right upper abdomen is performed and images are obtained. Findings: Diffuse mild hepatic steatosis. The liver measures 15.4 cm in length. There is no intra or extrahepatic biliary ductal dilatation. The common bile duct measures2.9 mm. The gallbladder is well distended without any shadowing intraluminal calculus, pericholecystic fluid or gallbladder wall thickening. The gallbladder wall measures 2.0 mm. Sonographic Ricketts's sign is not reported by the technologist. The right kidney appears unremarkable and measures 10.1 x 5.0 x 5.5 cm in size. There is no hydronephrosis or perinephric fluid collection. Pancreas, IVC and aorta are suboptimally visualized due to overlying bowel gas. Small right pleural effusion. Impression: 1. Diffuse hepatic steatosis. 2. Small right pleural effusion. Electronically signed by: Tia Sorto MD (04/21/2020 1:05 PM) [facility] DICTATED and SIGNED BY: TIA SORTO MD DATE: 04/21/20 [id number] Laboratory Tests Test 04/21/20 11:40 04/21/20 13:18 04/22/20 05:45 04/22/20 07:00 Hemoglobin 7.7 g/dL (13.0-17.5) 8.0 g/dL (13.0-17.5) Hematocrit 23.7 % (39.0-53.0) 24.4 % (39.0-53.0) Mean Corpuscular Hemoglobin Concent 33 g/dL (31-37) 33 g/dL (31-37) Haptoglobin 226 mg/dL (32-363) White Blood Count 3.9 x10^3/uL (4.0-11.0) Red Blood Count 2.68 x10^6/uL (4.30-5.70) Mean Corpuscular Volume 91 fL (79-100) Mean Corpuscular Hemoglobin 30 pg (25-35) Red Cell Distribution Width 15.4 % (11.5-14.5) Platelet Count 113 x10^3/uL (140-400) Neutrophils (%) (Auto) 63 % (31-73) Lymphocytes (%) (Auto) 20 % (24-48) Monocytes (%) (Auto) 12 % (0-9) Eosinophils (%) (Auto) 3 % (0-3) Basophils (%) (Auto) 1 % (0-3) Neutrophils # (Auto) 2.4 x10^3/uL (1.8-7.7) Lymphocytes # (Auto) 0.8 x10^3/uL (1.0-4.8) Monocytes # (Auto) 0.5 x10^3/uL (0.0-1.1) Eosinophils # (Auto) 0.1 x10^3/uL (0.0-0.7) Basophils # (Auto) 0.1 x10^3/uL (0.0-0.2) Prothrombin Time 15.9 SEC (11.7-14.0) Prothromb Time International Ratio 1.3 (0.8-1.1) Activated Partial Thromboplast Time 40 SEC (24-38) Sodium Level 148 mmol/L (136-145) Potassium Level 5.4 mmol/L (3.5-5.1) Chloride Level 108 mmol/L (98-107) Carbon Dioxide Level 14 mmol/L (21-32) Anion Gap 26 (6-14) Blood Urea Nitrogen 188 mg/dL (8-26) Creatinine 13.8 mg/dL (0.7-1.3) Estimated GFR (Cockcroft-Gault) 3.6 Glucose Level 59 mg/dL (70-99) Calcium Level 6.0 mg/dL (8.5-10.1) Phosphorus Level 11.1 mg/dL (2.6-4.7) Magnesium Level 1.7 mg/dL (1.8-2.4) Albumin 3.1 g/dL (3.4-5.0) Urine Collection Type Unknown Urine Color Yellow Urine Clarity Clear Urine pH 5.5 (<5.0-8.0) Urine Specific [place] 1.015 (1.000-1.030) Urine Protein 100 mg/dL (NEG-TRACE) Urine Glucose (UA) Negative mg/dL (NEG) Urine Ketones (Stick) Negative mg/dL (NEG) Urine Blood Large (NEG) Urine Nitrite Negative (NEG) Urine Bilirubin Negative (NEG) Urine Urobilinogen Dipstick 0.2 mg/dL (0.2 mg/dL) Urine Leukocyte Esterase Trace (NEG) Urine RBC 3-5 /HPF (0-2) Urine WBC 5-10 /HPF (0-4) Urine Squamous Epithelial Cells Occ /LPF Urine Bacteria Moderate /HPF (0-FEW) Assessment and Plan Assessmemt and Plan Problems Medical Problems: (1) Elevated troponin Status: Acute (2) PNA (pneumonia) Status: Acute Comment Review of Relevant I have reviewed the following items amee (where applicable) has been applied. Labs Laboratory Tests Test 04/20/20 15:15 04/20/20 17:55 04/21/20 05:00 04/21/20 05:15 White Blood Count 4.2 x10^3/uL (4.0-11.0) Red Blood Count 2.70 x10^6/uL (4.30-5.70) 2.18 x10^6/uL (4.30-5.70) Hemoglobin 8.1 g/dL (13.0-17.5) Hematocrit 24.9 % (39.0-53.0) Mean Corpuscular Volume 93 fL (79-100) Mean Corpuscular Hemoglobin 30 pg (25-35) Mean Corpuscular Hemoglobin Concent 32 g/dL (31-37) Red Cell Distribution Width 16.0 % (11.5-14.5) Platelet Count 124 x10^3/uL (140-400) Neutrophils (%) (Auto) 76 % (31-73) Lymphocytes (%) (Auto) 13 % (24-48) Monocytes (%) (Auto) 10 % (0-9) Eosinophils (%) (Auto) 1 % (0-3) Basophils (%) (Auto) 1 % (0-3) Neutrophils # (Auto) 3.1 x10^3/uL (1.8-7.7) Lymphocytes # (Auto) 0.5 x10^3/uL (1.0-4.8) Monocytes # (Auto) 0.4 x10^3/uL (0.0-1.1) Eosinophils # (Auto) 0.1 x10^3/uL (0.0-0.7) Basophils # (Auto) 0.0 x10^3/uL (0.0-0.2) Sodium Level 142 mmol/L (136-145) Potassium Level 6.9 mmol/L (3.5-5.1) Chloride Level 110 mmol/L (98-107) Carbon Dioxide Level 11 mmol/L (21-32) Anion Gap 21 (6-14) Blood Urea Nitrogen 211 mg/dL (8-26) Creatinine 14.1 mg/dL (0.7-1.3) Estimated GFR (Cockcroft-Gault) 3.5 Glucose Level 91 mg/dL (70-99) Calcium Level 5.9 mg/dL (8.5-10.1) Total Bilirubin 0.4 mg/dL (0.2-1.0) Direct Bilirubin 0.1 mg/dL (0.0-0.2) Aspartate Amino Transf (AST/SGOT) 44 U/L (15-37) Alanine Aminotransferase (ALT/SGPT) 100 U/L (16-63) Alkaline Phosphatase 167 U/L (46-116) Creatine Kinase 934 U/L (39-308) Troponin I Quantitative 0.060 ng/mL (0.000-0.055) GG-Fpy-W-Type Natriuretic Peptide > 19128 pg/mL (0-124) Total Protein 7.3 g/dL (6.4-8.2) Albumin 3.6 g/dL (3.4-5.0) Lipase 590 U/L (73-393) O2 Saturation 97 % (92-99) Arterial Blood pH 7.30 (7.35-7.45) Arterial Blood pCO2 at Patient Temp 18 mmHg (35-46) Arterial Blood pO2 at Patient Temp 108 mmHg (65-108) Arterial Blood HCO3 9 mmol/L (21-28) Arterial Blood Base Excess -16 mmol/L (-3-3) Oxyhemoglobin 96.2 % Methemoglobin 0.7 % (0.0-1.9) Carbon Monoxide, Quantitative 0.3 % (0.0-1.9) FiO2 21 Magnesium Level 1.7 mg/dL (1.8-2.4) Absolute Reticulocyte Count 0.021 x10^6/uL (0.020-0.120) Percent Reticulocyte Count 1.0 % (0.5-2.3) Immature Reticulocyte Fraction 0.39 (0.20-0.60) Uric Acid 7.1 mg/dL (3.5-7.2) Iron Level 35 ug/dL (65-175) Total Iron Binding Capacity 161 ug/dL (250-450) Iron Saturation 22 % (15-34) Ferritin 375 ng/mL (26-388) Lactate Dehydrogenase 400 U/L (85-227) Vitamin B12 Level 934 pg/mL (247-911) Hepatitis A IgM Antibody Nonreactive (Nonreactive) Hepatitis B Surface Antigen Nonreactive (Nonreactive) Hepatitis B Core IgM Antibody Nonreactive (Nonreactive) Hepatitis C IgG Antibody Nonreactive (Nonreactive) Test 04/21/20 06:00 04/21/20 06:39 04/21/20 11:40 04/21/20 13:18 White Blood Count 2.9 x10^3/uL (4.0-11.0) Red Blood Count 2.19 x10^6/uL (4.30-5.70) Hemoglobin 6.7 g/dL (13.0-17.5) 7.7 g/dL (13.0-17.5) Hematocrit 20.7 % (39.0-53.0) 23.7 % (39.0-53.0) Mean Corpuscular Volume 95 fL (79-100) Mean Corpuscular Hemoglobin 31 pg (25-35) Mean Corpuscular Hemoglobin Concent 33 g/dL (31-37) 33 g/dL (31-37) Red Cell Distribution Width 15.5 % (11.5-14.5) Platelet Count 106 x10^3/uL (140-400) Neutrophils (%) (Auto) 69 % (31-73) Lymphocytes (%) (Auto) 16 % (24-48) Monocytes (%) (Auto) 11 % (0-9) Eosinophils (%) (Auto) 2 % (0-3) Basophils (%) (Auto) 1 % (0-3) Neutrophils # (Auto) 2.0 x10^3/uL (1.8-7.7) Lymphocytes # (Auto) 0.5 x10^3/uL (1.0-4.8) Monocytes # (Auto) 0.3 x10^3/uL (0.0-1.1) Eosinophils # (Auto) 0.1 x10^3/uL (0.0-0.7) Basophils # (Auto) 0.0 x10^3/uL (0.0-0.2) Sodium Level 148 mmol/L (136-145) Potassium Level 5.6 mmol/L (3.5-5.1) Chloride Level 110 mmol/L (98-107) Carbon Dioxide Level 14 mmol/L (21-32) Anion Gap 24 (6-14) Blood Urea Nitrogen 203 mg/dL (8-26) Creatinine 13.7 mg/dL (0.7-1.3) Estimated GFR (Cockcroft-Gault) 3.6 BUN/Creatinine Ratio 15 (6-20) Glucose Level 54 mg/dL (70-99) Calcium Level 6.4 mg/dL (8.5-10.1) Phosphorus Level 11.0 mg/dL (2.6-4.7) Total Bilirubin 0.4 mg/dL (0.2-1.0) Aspartate Amino Transf (AST/SGOT) 84 U/L (15-37) Alanine Aminotransferase (ALT/SGPT) 120 U/L (16-63) Alkaline Phosphatase 183 U/L (46-116) Total Protein 6.1 g/dL (6.4-8.2) Albumin 3.0 g/dL (3.4-5.0) Albumin/Globulin Ratio 1.0 (1.0-1.7) Glucose (Fingerstick) 87 mg/dL (70-99) Haptoglobin 226 mg/dL (32-363) Test 04/22/20 05:45 04/22/20 07:00 White Blood Count 3.9 x10^3/uL (4.0-11.0) Red Blood Count 2.68 x10^6/uL (4.30-5.70) Hemoglobin 8.0 g/dL (13.0-17.5) Hematocrit 24.4 % (39.0-53.0) Mean Corpuscular Volume 91 fL (79-100) Mean Corpuscular Hemoglobin 30 pg (25-35) Mean Corpuscular Hemoglobin Concent 33 g/dL (31-37) Red Cell Distribution Width 15.4 % (11.5-14.5) Platelet Count 113 x10^3/uL (140-400) Neutrophils (%) (Auto) 63 % (31-73) Lymphocytes (%) (Auto) 20 % (24-48) Monocytes (%) (Auto) 12 % (0-9) Eosinophils (%) (Auto) 3 % (0-3) Basophils (%) (Auto) 1 % (0-3) Neutrophils # (Auto) 2.4 x10^3/uL (1.8-7.7) Lymphocytes # (Auto) 0.8 x10^3/uL (1.0-4.8) Monocytes # (Auto) 0.5 x10^3/uL (0.0-1.1) Eosinophils # (Auto) 0.1 x10^3/uL (0.0-0.7) Basophils # (Auto) 0.1 x10^3/uL (0.0-0.2) Prothrombin Time 15.9 SEC (11.7-14.0) Prothromb Time International Ratio 1.3 (0.8-1.1) Activated Partial Thromboplast Time 40 SEC (24-38) Sodium Level 148 mmol/L (136-145) Potassium Level 5.4 mmol/L (3.5-5.1) Chloride Level 108 mmol/L (98-107) Carbon Dioxide Level 14 mmol/L (21-32) Anion Gap 26 (6-14) Blood Urea Nitrogen 188 mg/dL (8-26) Creatinine 13.8 mg/dL (0.7-1.3) Estimated GFR (Cockcroft-Gault) 3.6 Glucose Level 59 mg/dL (70-99) Calcium Level 6.0 mg/dL (8.5-10.1) Phosphorus Level 11.1 mg/dL (2.6-4.7) Magnesium Level 1.7 mg/dL (1.8-2.4) Albumin 3.1 g/dL (3.4-5.0) Urine Collection Type Unknown Urine Color Yellow Urine Clarity Clear Urine pH 5.5 (<5.0-8.0) Urine Specific [place] 1.015 (1.000-1.030) Urine Protein 100 mg/dL (NEG-TRACE) Urine Glucose (UA) Negative mg/dL (NEG) Urine Ketones (Stick) Negative mg/dL (NEG) Urine Blood Large (NEG) Urine Nitrite Negative (NEG) Urine Bilirubin Negative (NEG) Urine Urobilinogen Dipstick 0.2 mg/dL (0.2 mg/dL) Urine Leukocyte Esterase Trace (NEG) Urine RBC 3-5 /HPF (0-2) Urine WBC 5-10 /HPF (0-4) Urine Squamous Epithelial Cells Occ /LPF Urine Bacteria Moderate /HPF (0-FEW) Laboratory Tests Test 04/21/20 11:40 04/21/20 13:18 04/22/20 05:45 04/22/20 07:00 Hemoglobin 7.7 g/dL (13.0-17.5) 8.0 g/dL (13.0-17.5) Hematocrit 23.7 % (39.0-53.0) 24.4 % (39.0-53.0) Mean Corpuscular Hemoglobin Concent 33 g/dL (31-37) 33 g/dL (31-37) Haptoglobin 226 mg/dL (32-363) White Blood Count 3.9 x10^3/uL (4.0-11.0) Red Blood Count 2.68 x10^6/uL (4.30-5.70) Mean Corpuscular Volume 91 fL (79-100) Mean Corpuscular Hemoglobin 30 pg (25-35) Red Cell Distribution Width 15.4 % (11.5-14.5) Platelet Count 113 x10^3/uL (140-400) Neutrophils (%) (Auto) 63 % (31-73) Lymphocytes (%) (Auto) 20 % (24-48) Monocytes (%) (Auto) 12 % (0-9) Eosinophils (%) (Auto) 3 % (0-3) Basophils (%) (Auto) 1 % (0-3) Neutrophils # (Auto) 2.4 x10^3/uL (1.8-7.7) Lymphocytes # (Auto) 0.8 x10^3/uL (1.0-4.8) Monocytes # (Auto) 0.5 x10^3/uL (0.0-1.1) Eosinophils # (Auto) 0.1 x10^3/uL (0.0-0.7) Basophils # (Auto) 0.1 x10^3/uL (0.0-0.2) Prothrombin Time 15.9 SEC (11.7-14.0) Prothromb Time International Ratio 1.3 (0.8-1.1) Activated Partial Thromboplast Time 40 SEC (24-38) Sodium Level 148 mmol/L (136-145) Potassium Level 5.4 mmol/L (3.5-5.1) Chloride Level 108 mmol/L (98-107) Carbon Dioxide Level 14 mmol/L (21-32) Anion Gap 26 (6-14) Blood Urea Nitrogen 188 mg/dL (8-26) Creatinine 13.8 mg/dL (0.7-1.3) Estimated GFR (Cockcroft-Gault) 3.6 Glucose Level 59 mg/dL (70-99) Calcium Level 6.0 mg/dL (8.5-10.1) Phosphorus Level 11.1 mg/dL (2.6-4.7) Magnesium Level 1.7 mg/dL (1.8-2.4) Albumin 3.1 g/dL (3.4-5.0) Urine Collection Type Unknown Urine Color Yellow Urine Clarity Clear Urine pH 5.5 (<5.0-8.0) Urine Specific [place] 1.015 (1.000-1.030) Urine Protein 100 mg/dL (NEG-TRACE) Urine Glucose (UA) Negative mg/dL (NEG) Urine Ketones (Stick) Negative mg/dL (NEG) Urine Blood Large (NEG) Urine Nitrite Negative (NEG) Urine Bilirubin Negative (NEG) Urine Urobilinogen Dipstick 0.2 mg/dL (0.2 mg/dL) Urine Leukocyte Esterase Trace (NEG) Urine RBC 3-5 /HPF (0-2) Urine WBC 5-10 /HPF (0-4) Urine Squamous Epithelial Cells Occ /LPF Urine Bacteria Moderate /HPF (0-FEW) Medications Current Medications Ceftriaxone Sodium (Rocephin) 1 gm 1X ONCE IVP Last administered on 04/20/20at 17:42; Start 04/20/20 at 16:15; Stop 04/20/20 at 16:17; Status DC Azithromycin 250 ml @ 250 mls/hr 1X ONCE IV Last administered on 04/20/20at 17 :45; Start 04/20/20 at 16:15; Stop 04/20/20 at 17:14; Status DC Aspirin (Aspirin Chewable) 324 mg 1X ONCE PO Last administered on 04/20/20at 17:48; Start 04/20/20 at 16:15; Stop 04/20/20 at 16:17; Status DC Calcium Gluconate (Calcium Gluconate) 1,000 mg 1X ONCE IVP Last administered on 04/20/20at 17:34; Start 04/20/20 at 16:45; Stop 04/20/20 at 16:46; Status DC Sodium Bicarbonate (Sodium Bicarb Adult 8.4% Syr) 50 meq 1X ONCE IV Last administered on 04/20/20at 17:32; Start 04/20/20 at 16:45; Stop 04/20/20 at 16:46; Status DC Sodium Bicarbonate 150 meq/Sterile Water 1,150 ml @ 125 mls/hr Q9H12M IV Last administered on 04/20/20at 19:43; Start 04/20/20 at 19:00; Stop 04/21/20 at 02:59; Status DC Magnesium Sulfate 50 ml @ 25 mls/hr PRN DAILY PRN IV for Mag < 1.7 on am labs; Start 04/20/20 at 18:45 Calcium Gluconate (Calcium Gluconate) 1,000 mg Q3H IVP Last administered on 04/21/20at 00:37; Start 04/20/20 at 19:00; Stop 04/21/20 at 01:01; Status DC Sodium Polystyrene Sulfonate (Kayexalate) 45 gm 1X ONCE PO Last administered on 04/20/20at 20:16; Start 04/20/20 at 19:00; Stop 04/20/20 at 19:01; Status DC Ondansetron HCl (Zofran) 4 mg PRN Q6HRS PRN IVP NAUSEA/VOMITING; Start 04/20/20 at 19:45 Al Hydroxide/Mg Hydroxide (Mylanta Plus Xs) 30 ml PRN Q3HRS PRN PO HEARTBURN / GAS; Start 04/20/20 at 19:45 Calcium Carbonate/ Glycine (Tums) 500 mg PRN Q3HRS PRN PO UPSET STOMACH; Start 04/20/20 at 19:45 Magnesium Hydroxide (Milk Of Magnesia) 2,400 mg PRN Q12HR PRN PO CONSTIPATION; Start 04/20/20 at 19:45 Bisacodyl (Dulcolax Supp) 10 mg PRN DAILY PRN [place] CONSTIPATION; Start 04/20/20 at 19:45 Heparin Sodium (Porcine) (Heparin Sodium) 5,000 unit Q8HRS SQ Last administered on 04/22/20at 05:47; Start 04/20/20 at 22:00 Calcium Gluconate (Calcium Gluconate) 1,000 mg 1X ONCE IVP Last administered on 04/21/20at 04:14; Start 04/21/20 at 04:15; Stop 04/21/20 at 04:16; Status DC Calcium Carbonate/ Glycine (Tums) 2,000 mg TIDAC PO Last administered on 04/21/20at 17:43; Start 04/21/20 at 11:30 Sodium Polystyrene Sulfonate (Kayexalate) 15 gm 1X ONCE PO Last administered on 04/21/20at 10:59; Start 04/21/20 at 08:45; Stop 04/21/20 at 08:49; Status DC Vitals/I & O Vital Sign - Last 24 Hours 04/21/20 04/21/20 04/21/20 04/21/20 14:00 19:00 20:10 23:00 Temp 96.8 97.5 97.9 96.8 97.5 97.9 Pulse 98 90 96 Resp 20 18 18 B/P (MAP) 162/97 (118) 162/93 (116) 178/97 (124) Pulse Ox 100 99 98 O2 Delivery Room Air Room Air 04/22/20 04/22/20 03:00 07:00 Temp 98.0 98.1 98.0 98.1 Pulse 95 90 Resp 19 16 B/P (MAP) 142/94 (110) 157/89 (111) Pulse Ox 100 99 O2 Delivery Room Air Room Air Intake and Output 04/21/20 04/21/20 04/22/20 15:00 23:00 07:00 Intake Total 590 ml 120 ml 200 ml Output Total 0 ml 200 ml Balance 590 ml 120 ml 0 ml Nutrition Consultation Dietary Evaluation: Recommendations by RD: Dietary education by RD, Increase Calorie Intake, Prote in supplementation Comments: Renal diet with nepro oral nutrition supplements Expected Outcomes/Goals: improved po intake, improved renal labs with HD Interpretation of weight loss: >7.5% in 3 months Malnutrition Findings: Food and Nutrition Intake (Sev: <50% est energy req 5days Body Fat Depletion (Non Severe: Mild Depletion Weight Status: Appropriate Justicifation of Admission Dx: Justifications for Admission: Justification of Admission Dx: Yes Acute Renal Failure: RF Can't Be Managed Outpt MACK MAR MD Apr 22, 2020 10:37
[2020-04-22 11:00] VITALS: BP 159/98
--- NOTE | 2020-04-22 11:09 | PDOC ---
Date of Service: DATE: 04/22/20 TIME: 11:01 Subjective: Subjective: Feels fine. Had "diarrhea" once today. Objective: Objective: D/w nurse - he didn't mention diarrhea. To have HD cath placed and the dialysis. Vital Signs: Vital Signs Date Time Temp Pulse Resp B/P (MAP) Pulse Ox O2 Delivery O2 Flow Rate FiO2 04/22/20 07:00 98.1 90 16 157/89 (111) 99 Room Air 98.1 Labs: Laboratory Tests Test 04/21/20 11:40 04/21/20 13:18 04/22/20 05:45 04/22/20 07:00 Hemoglobin 7.7 g/dL 8.0 g/dL Hematocrit 23.7 % 24.4 % Mean Corpuscular Hemoglobin Concent 33 g/dL 33 g/dL Haptoglobin 226 mg/dL Erythropoietin Pending Total Protein (PEP) Pending Albumin (PEP) Pending Globulin Pending Albumin/Globulin Ratio Pending [id number] Pending [id number] Pending Beta Globulins Pending Gamma Globulins Pending Protein Electrophoresis M-Paddy Pending Protein Electrophoresis Comment Pending Immunoglobulin [place]/Lambda Ratio Pending Free [place] Light Chains Pending Free Lambda Light Chains Pending White Blood Count 3.9 x10^3/uL Red Blood Count 2.68 x10^6/uL Mean Corpuscular Volume 91 fL Mean Corpuscular Hemoglobin 30 pg Red Cell Distribution Width 15.4 % Platelet Count 113 x10^3/uL Neutrophils (%) (Auto) 63 % Lymphocytes (%) (Auto) 20 % Monocytes (%) (Auto) 12 % Eosinophils (%) (Auto) 3 % Basophils (%) (Auto) 1 % Neutrophils # (Auto) 2.4 x10^3/uL Lymphocytes # (Auto) 0.8 x10^3/uL Monocytes # (Auto) 0.5 x10^3/uL Eosinophils # (Auto) 0.1 x10^3/uL Basophils # (Auto) 0.1 x10^3/uL Prothrombin Time 15.9 SEC Prothromb Time International Ratio 1.3 Activated Partial Thromboplast Time 40 SEC Sodium Level 148 mmol/L Potassium Level 5.4 mmol/L Chloride Level 108 mmol/L Carbon Dioxide Level 14 mmol/L Anion Gap 26 Blood Urea Nitrogen 188 mg/dL Creatinine 13.8 mg/dL Estimated GFR (Cockcroft-Gault) 3.6 Glucose Level 59 mg/dL Calcium Level 6.0 mg/dL Phosphorus Level 11.1 mg/dL Magnesium Level 1.7 mg/dL Albumin 3.1 g/dL Urine Collection Type Unknown Urine Color Yellow Urine Clarity Clear Urine pH 5.5 Urine Specific [place] 1.015 Urine Protein 100 mg/dL Urine Glucose (UA) Negative mg/dL Urine Ketones (Stick) Negative mg/dL Urine Blood Large Urine Nitrite Negative Urine Bilirubin Negative Urine Urobilinogen Dipstick 0.2 mg/dL Urine Leukocyte Esterase Trace Urine RBC 3-5 /HPF Urine WBC 5-10 /HPF Urine Squamous Epithelial Cells Occ /LPF Urine Bacteria Moderate /HPF PE: GEN: NAD - asleep in recliner LUNGS: CTAB HEART: RRR ABD: soft, non-tender NEURO/PSYCH: A & O 3 A/P: SAVANNAH/CKD, prostatomegaly Weight loss ACD - stable after transfusion Thrombocytopenia, leukopenia - better Elevated LFTs - Hep panel neg, hepatic steatosis ?diarrhea R/o COVID -- Plans for dialysis as above. Monitor stooling. Will return later w/ Dr. Clemente. Justicifation of Admission Dx: Justifications for Admission: Justification of Admission Dx: Yes PORFIRIO WHITE Apr 22, 2020 11:09
[2020-04-22] MEDS ORDERED: ALBUMIN HUMAN 25% 200 ML IV PRN (12:30)
[2020-04-22] MEDS ORDERED: DIALYSIS PATIENT. MC PRN (12:30)
[2020-04-22] MEDS ORDERED: IV NORMAL SALINE 1000ML BAG 1,000 ML IV PRN ×2 (12:30)
[2020-04-22] MEDS ORDERED: MIDAZOLAM HCL/PF 2 MG/2 ML VIAL. ONE (12:53)
[2020-04-22] MEDS ORDERED: fentaNYL PF VIAL 100 MCG/2 ML VIAL ONE (12:54)
[2020-04-22] MEDS ORDERED: ceFAZolin SODIUM IV Push 1 GM VIAL. IVP ONE ×2 (12:59→14:00)
[2020-04-22] MEDS ORDERED: LIDOCAINE 2%/EPI 1:100,000 20 ML VIAL. ONE (13:00)
--- NOTE | 2020-04-22 13:17 | PDOC ---
Renal-Progress Notes Subjective Notes Notes NO NEW COMPLAINTS History of Present Illness Hx of present illness NO ACUTE CHANGES Vitals Vitals Vital Signs Date Time Temp Pulse Resp B/P (MAP) Pulse Ox O2 Delivery O2 Flow Rate FiO2 04/22/20 11:00 98.2 95 18 159/98 (118) 98 Room Air 98.2 Weight Weight [ ] I.O. Intake and Output Intake and Output 04/22/20 07:00 Intake Total 910 ml Output Total 200 ml Balance 710 ml Intake Oral 320 ml Blood Product IV Normal Saline Flush 590 ml Output Urine Total 200 ml Labs Labs Laboratory Tests Test 04/21/20 13:18 04/22/20 05:45 04/22/20 07:00 04/22/20 10:37 Haptoglobin 226 mg/dL (32-363) White Blood Count 3.9 x10^3/uL (4.0-11.0) Red Blood Count 2.68 x10^6/uL (4.30-5.70) Hemoglobin 8.0 g/dL (13.0-17.5) Hematocrit 24.4 % (39.0-53.0) Mean Corpuscular Volume 91 fL (79-100) Mean Corpuscular Hemoglobin 30 pg (25-35) Mean Corpuscular Hemoglobin Concent 33 g/dL (31-37) Red Cell Distribution Width 15.4 % (11.5-14.5) Platelet Count 113 x10^3/uL (140-400) Neutrophils (%) (Auto) 63 % (31-73) Lymphocytes (%) (Auto) 20 % (24-48) Monocytes (%) (Auto) 12 % (0-9) Eosinophils (%) (Auto) 3 % (0-3) Basophils (%) (Auto) 1 % (0-3) Neutrophils # (Auto) 2.4 x10^3/uL (1.8-7.7) Lymphocytes # (Auto) 0.8 x10^3/uL (1.0-4.8) Monocytes # (Auto) 0.5 x10^3/uL (0.0-1.1) Eosinophils # (Auto) 0.1 x10^3/uL (0.0-0.7) Basophils # (Auto) 0.1 x10^3/uL (0.0-0.2) Prothrombin Time 15.9 SEC (11.7-14.0) Prothromb Time International Ratio 1.3 (0.8-1.1) Activated Partial Thromboplast Time 40 SEC (24-38) Sodium Level 148 mmol/L (136-145) Potassium Level 5.4 mmol/L (3.5-5.1) Chloride Level 108 mmol/L (98-107) Carbon Dioxide Level 14 mmol/L (21-32) Anion Gap 26 (6-14) Blood Urea Nitrogen 188 mg/dL (8-26) Creatinine 13.8 mg/dL (0.7-1.3) Estimated GFR (Cockcroft-Gault) 3.6 Glucose Level 59 mg/dL (70-99) Calcium Level 6.0 mg/dL (8.5-10.1) Phosphorus Level 11.1 mg/dL (2.6-4.7) Magnesium Level 1.7 mg/dL (1.8-2.4) Albumin 3.1 g/dL (3.4-5.0) Urine Collection Type Unknown Urine Color Yellow Urine Clarity Clear Urine pH 5.5 (<5.0-8.0) Urine Specific [place] 1.015 (1.000-1.030) Urine Protein 100 mg/dL (NEG-TRACE) Urine Glucose (UA) Negative mg/dL (NEG) Urine Ketones (Stick) Negative mg/dL (NEG) Urine Blood Large (NEG) Urine Nitrite Negative (NEG) Urine Bilirubin Negative (NEG) Urine Urobilinogen Dipstick 0.2 mg/dL (0.2 mg/dL) Urine Leukocyte Esterase Trace (NEG) Urine RBC 3-5 /HPF (0-2) Urine WBC 5-10 /HPF (0-4) Urine Squamous Epithelial Cells Occ /LPF Urine Bacteria Moderate /HPF (0-FEW) Urine Random Sodium 50 mmol/L (Not Estab.) SARS-CoV-2 Antigen (Rapid) Negative (NEGATIVE) Review of Systems Constitutional: yes: alert Ears/Nose/Throat: Yes: no symptom reported Eyes: Yes: no symptom reported Pulmonary: Yes no symptom reported Cardiovascular: Yes no symptom reported Gastrointestional: Yes: no symptom reported Genitourinary: Yes: no symptom reported Musculoskeletal: Yes: no symptom reported Skin: Yes no symptom reported Psychiatric/Neurological: Yes: no symptom reported Endocrine: Yes: no symptom reported Physical Exam General Appearance: no apparent distress Skin: warm Respiratory: bilateral CTA Heart: S1S2 Abdomen: soft, bowel sounds present Genitourinary: bladder flat Extremities: pulses present Neurology: alert Assessment Assessment IMP UREMIA WT LOSS RENAL FAILURE-ACUTE VS ESRD HTN HX DM II HYPERPHOSPHATEMIA MET ACIDOSIS PANCYTOPENIA PLAN HD CATHETER TODAY SLOW HD QT OF 2.5 QB OF 250 NO UF WILL PLAN FOR DAILY HD WILL ALSO SCHEDULE RENAL BIOPSY START JOSE ALBERTO START NON CA BINDERS CHECK IRON WILL FOLLOW CHALO ALVAREZ MD Apr 22, 2020 13:17
[2020-04-22 13:59] VITALS: BP 160/83
[2020-04-22] MEDS ORDERED: LIDOCAINE 2%/EPI 1:100,000 20 ML VIAL. IJ ONE (14:00)
[2020-04-22] MEDS ORDERED: fentaNYL PF VIAL 100 MCG/2 ML VIAL IV ONE (14:00)
[2020-04-22] MEDS ORDERED: MIDAZOLAM HCL/PF 2 MG/2 ML VIAL. IV ONE (14:00)
--- NOTE | 2020-04-22 15:17 | NUR ---
SW following for discharge planning. Spoke with RN and reviewed chart. Pt COVID negative. Pt on 2l . Temporary dialysis catheter placed today, 04/22. SW following for possible new dialysis setup. Addendum: 04/23/20 at 1002 by BALDOMERO WHITE SW Pt transferred to . Pt identified as BPCI. Discharge planners to follow.
--- NOTE | 2020-04-22 15:27 | NUR ---
Report called to nurse Tatianna on 5N. Pts emergency contact Brian was notified. Belongings taken to room 519.
--- NOTE | 2020-04-22 17:20 | NUR ---
Have received patient to room 519. Pt given dinner tray. bsc, walker at bedside. Gait belt on table. Has grippy slipper socks on. Bed alarm turned on. Call light and phone within easy reach. Pt oriented to unit. No visitors with pt at this time.
[2020-04-22] MEDS: SEVELAMER CARBONATE 800 MG TABLET. PO SCH (18:36)
[2020-04-22 19:04] VITALS: BP 143/75
[2020-04-22] MEDS ORDERED: DARBEPOETIN ALFA 60 MCG/0.3 ML DISP.SYRIN. SQ SCH (21:00)
[2020-04-22 23:00] VITALS: BP 143/77
[2020-04-23 03:00] VITALS: BP 165/94
[2020-04-23] MEDS: ONDANSETRON PF 4 MG/2 ML VIAL. IVP PRN ×2 (03:39→11:58)
--- NOTE | 2020-04-23 06:54 | PDOC ---
PROGRESS NOTES Date of Service: DATE: 04/23/20 TIME: 06:54 Chief Complaint Chief Complaint IMPRESSION Acute renal failure Hyperkalemia Hypocalcemia, renal to dialyze Transaminitis Jaundice Elevated BNP Elevated troponins Plan: nephrology for acute renal failure; initiated on hemodialysis consult gi PNEUMONIA Patient received calcium gluconate and sodium bicarb. Placed on bicarb drip. Consult to cardiology for elevated troponins, will continue to trend. Will consult GI for transaminitis and jaundice. Chest x-ray on admission shows patchy interstitial opacities, could be secondary to vascular congestion or infiltrates. Afebrile, nontoxic-appearing. Will alfredito at empirically with renally dosed cefepime 1 g every 24 for possible community- acquired pneumonia. Unintentional weight loss of constitutional symptoms consistent with malignancy, but no clear source or etiology identified at this time. FEN - regular diet PPX - Heparin Sono with fatty liver. likely source of elevated LFT's. FULL CODE Dispo - inpatient for above Patient is a surrogate decision-maker as Brian Meade (family friend). Phone number: [phone] 2 8 min pt exam, chart review, > 50% of time spent with exam, chart review, pt care coordination History of Present Illness History of Present Illness Patient 69-year-old male no stated past medical history who resents to the ER with complaint of generalized weakness for the past 3 months. Over this time patient notes associated 40 pound unintentional weight loss, and constitutional symptoms of night sweats and intermittent nocturnal fevers. He lives alone and presents to the ED at the behest of his family friend, who has been urging patient to be seen by a doctor for the past several months. Upon evaluation in the ER he is noted to be jaundice with icteric sclera. He states he has not urinated today, and upon evaluation in the ER he was noted to be in renal failur e. Patient is alert and oriented to self and place. He really does not have any complaints except for admitted weakness, and he requires much prodding to obtain information. Will admit patient for further medical management. 04/21: Patient without complaints today. Hemoglobin 6.7, potassium improved. Ordered 2 units pRBC. Due to presenting symptoms of weakness and intermittent fevers. Will swab patient for COVID-19. He may transfer 6th floor. Denies fever or nausea. 1- renal fx worse, starting dialysis -, recent 40 lb weight lossSono c/w fatty liver. likely source of elevated LFT's. needs RENAL BIOPSY JOSE ALBERTO NON CA BINDERS Vitals Vitals Vital Signs Date Time Temp Pulse Resp B/P (MAP) Pulse Ox O2 Delivery O2 Flow Rate FiO2 04/23/20 03:00 98.2 98 16 165/94 (117) 95 Room Air 98.2 04/22/20 14:05 2.0 Physical Exam General: Alert, Oriented X3, Cooperative, No acute distress, mild distress Heart: Regular rate Lungs: Clear Abdomen: Normal bowel sounds Extremities: No cyanosis, No edema, Normal pulses Skin: Other (Jaundiced) Labs LABS Signed PATIENT: ARLETTE BARRETT ACCOUNT: [id number] : 1950 LOCATION: ER AGE: 69 SEX: M EXAM STATUS: REG ER ORD. PHYSICIAN: JAYNE ECKERT MD REASON: gen weakness PROCEDURE: CHEST AP ONLY INDICATION: Reason: gen weakness / Spl. Instructions: / History: COMPARISON: April 2007 FINDINGS: Single view of chest obtained. Hypoexpanded examination. Elevation of the right hemidiaphragm. Mild patchy interstitial opacity. Degenerative changes the shoulders. IMPRESSION: * Hypoexpanded exam with mild patchy interstitial opacity. This could be secondary to crowding of the lung markings from hypoexpansion but mild pulmonary vascular congestion or interstitial infiltrate is not excluded given this finding. Electronically signed by: Lesvia House MD (04/20/2020 3:54 PM) [id number] DICTATED and SIGNED BY: LESVIA HOUSE MD DATE: 04/20/20 [id number] PATIENT: ARLETTE BARRETT ACCOUNT: [id number] : 1950 LOCATION: [address] [place] [address] AGE: 69 SEX: M EXAM STATUS: ADM IN ORD. PHYSICIAN: JAYNE ECKERT MD REASON: elevated bilirubin PROCEDURE: CT ABDOMEN PELVIS WO CONTRAST Exam performed: CT scan of the abdomen and pelvis with contrast Indication: Elevated bilirubin Date of Service: 04/20/2020. Comparison: None available Technique: Contiguous helical acquisitions are obtained through the abdomen and pelvis without IV contrast In addition sagittal and coronal reformatted images are obtained and reviewed. CT scan abdomen and pelvis findings: Small right and trace left pleural effusion. Bibasilar atelectasis. Borderline cardiomegaly. Unopacified liver, spleen, pancreas and gallbladder are normal. Bilateral adrenal nodules. Bilateral kidneys are symmetric without hydronephrosis or nephrolithiasis. Diffuse atheromatous aortic calcification. Small and large bowel loops are nondilated and unremarkable. Generalized mesenteric haziness seen around both kidneys perhaps chronic. Appendix is not clearly seen. Mild sigmoid diverticulosis. There is scattered stool in the rectosigmoid region. Diffuse prostatomegaly causing mass effect on the base of urinary bladder which appears somewhat decompressed. Bones are normal. Impression CT Abdomen and pelvis: 1. Small right and trace left pleural effusion. 2. No acute intra-abdominal or pelvic process seen. PQRS Compliance Statement: One or more of the following individualized dose reduction techniques were utilized for this examination: 1. Automated exposure control 2. Adjustment of the mA and/or kV according to patient size 3. Use of iterative reconstruction technique Electronically signed by: Tia Sorto MD (04/20/2020 7:00 PM) [facility] DICTATED and SIGNED BY: TIA SORTO MD DATE: 04/20/20 [id number] Laboratory Tests Test 04/22/20 07:00 04/22/20 10:37 04/23/20 00:49 Urine Collection Type Unknown Urine Color Yellow Urine Clarity Clear Urine pH 5.5 (<5.0-8.0) Urine Specific [place] 1.015 (1.000-1.030) Urine Protein 100 mg/dL (NEG-TRACE) Urine Glucose (UA) Negative mg/dL (NEG) Urine Ketones (Stick) Negative mg/dL (NEG) Urine Blood Large (NEG) Urine Nitrite Negative (NEG) Urine Bilirubin Negative (NEG) Urine Urobilinogen Dipstick 0.2 mg/dL (0.2 mg/dL) Urine Leukocyte Esterase Trace (NEG) Urine RBC 3-5 /HPF (0-2) Urine WBC 5-10 /HPF (0-4) Urine Squamous Epithelial Cells Occ /LPF Urine Bacteria Moderate /HPF (0-FEW) Urine Random Sodium 50 mmol/L (Not Estab.) SARS-CoV-2 Antigen (Rapid) Negative (NEGATIVE) Glucose (Fingerstick) 103 mg/dL (70-99) Assessment and Plan Assessmemt and Plan Problems Medical Problems: (1) Elevated troponin Status: Acute (2) PNA (pneumonia) Status: Acute Comment Review of Relevant I have reviewed the following items amee (where applicable) has been applied. Labs Laboratory Tests Test 04/21/20 11:00 04/21/20 11:40 04/21/20 13:18 04/22/20 05:45 Coronavirus (PCR) Not detected (Not Detected) Hemoglobin 7.7 g/dL (13.0-17.5) 8.0 g/dL (13.0-17.5) Hematocrit 23.7 % (39.0-53.0) 24.4 % (39.0-53.0) Mean Corpuscular Hemoglobin Concent 33 g/dL (31-37) 33 g/dL (31-37) Haptoglobin 226 mg/dL (32-363) Erythropoietin 9.2 mIU/mL (2.6-18.5) White Blood Count 3.9 x10^3/uL (4.0-11.0) Red Blood Count 2.68 x10^6/uL (4.30-5.70) Mean Corpuscular Volume 91 fL (79-100) Mean Corpuscular Hemoglobin 30 pg (25-35) Red Cell Distribution Width 15.4 % (11.5-14.5) Platelet Count 113 x10^3/uL (140-400) Neutrophils (%) (Auto) 63 % (31-73) Lymphocytes (%) (Auto) 20 % (24-48) Monocytes (%) (Auto) 12 % (0-9) Eosinophils (%) (Auto) 3 % (0-3) Basophils (%) (Auto) 1 % (0-3) Neutrophils # (Auto) 2.4 x10^3/uL (1.8-7.7) Lymphocytes # (Auto) 0.8 x10^3/uL (1.0-4.8) Monocytes # (Auto) 0.5 x10^3/uL (0.0-1.1) Eosinophils # (Auto) 0.1 x10^3/uL (0.0-0.7) Basophils # (Auto) 0.1 x10^3/uL (0.0-0.2) Prothrombin Time 15.9 SEC (11.7-14.0) Prothromb Time International Ratio 1.3 (0.8-1.1) Activated Partial Thromboplast Time 40 SEC (24-38) Sodium Level 148 mmol/L (136-145) Potassium Level 5.4 mmol/L (3.5-5.1) Chloride Level 108 mmol/L (98-107) Carbon Dioxide Level 14 mmol/L (21-32) Anion Gap 26 (6-14) Blood Urea Nitrogen 188 mg/dL (8-26) Creatinine 13.8 mg/dL (0.7-1.3) Estimated GFR (Cockcroft-Gault) 3.6 Glucose Level 59 mg/dL (70-99) Calcium Level 6.0 mg/dL (8.5-10.1) Phosphorus Level 11.1 mg/dL (2.6-4.7) Magnesium Level 1.7 mg/dL (1.8-2.4) Albumin 3.1 g/dL (3.4-5.0) Test 04/22/20 07:00 04/22/20 10:37 04/23/20 00:49 Urine Collection Type Unknown Urine Color Yellow Urine Clarity Clear Urine pH 5.5 (<5.0-8.0) Urine Specific [place] 1.015 (1.000-1.030) Urine Protein 100 mg/dL (NEG-TRACE) Urine Glucose (UA) Negative mg/dL (NEG) Urine Ketones (Stick) Negative mg/dL (NEG) Urine Blood Large (NEG) Urine Nitrite Negative (NEG) Urine Bilirubin Negative (NEG) Urine Urobilinogen Dipstick 0.2 mg/dL (0.2 mg/dL) Urine Leukocyte Esterase Trace (NEG) Urine RBC 3-5 /HPF (0-2) Urine WBC 5-10 /HPF (0-4) Urine Squamous Epithelial Cells Occ /LPF Urine Bacteria Moderate /HPF (0-FEW) Urine Random Sodium 50 mmol/L (Not Estab.) SARS-CoV-2 Antigen (Rapid) Negative (NEGATIVE) Glucose (Fingerstick) 103 mg/dL (70-99) Laboratory Tests Test 04/22/20 07:00 04/22/20 10:37 04/23/20 00:49 Urine Collection Type Unknown Urine Color Yellow Urine Clarity Clear Urine pH 5.5 (<5.0-8.0) Urine Specific [place] 1.015 (1.000-1.030) Urine Protein 100 mg/dL (NEG-TRACE) Urine Glucose (UA) Negative mg/dL (NEG) Urine Ketones (Stick) Negative mg/dL (NEG) Urine Blood Large (NEG) Urine Nitrite Negative (NEG) Urine Bilirubin Negative (NEG) Urine Urobilinogen Dipstick 0.2 mg/dL (0.2 mg/dL) Urine Leukocyte Esterase Trace (NEG) Urine RBC 3-5 /HPF (0-2) Urine WBC 5-10 /HPF (0-4) Urine Squamous Epithelial Cells Occ /LPF Urine Bacteria Moderate /HPF (0-FEW) Urine Random Sodium 50 mmol/L (Not Estab.) SARS-CoV-2 Antigen (Rapid) Negative (NEGATIVE) Glucose (Fingerstick) 103 mg/dL (70-99) Medications Current Medications Ceftriaxone Sodium (Rocephin) 1 gm 1X ONCE IVP Last administered on 04/20/20at 17:42; Start 04/20/20 at 16:15; Stop 04/20/20 at 16:17; Status DC Azithromycin 250 ml @ 250 mls/hr 1X ONCE IV Last administered on 04/20/20at 17:45; Start 04/20/20 at 16:15; Stop 04/20/20 at 17:14; Status DC Aspirin (Aspirin Chewable) 324 mg 1X ONCE PO Last administered on 04/20/20at 17:48; Start 04/20/20 at 16:15; Stop 04/20/20 at 16:17; Status DC Calcium Gluconate (Calcium Gluconate) 1,000 mg 1X ONCE IVP Last administered on 04/20/20at 17:34; Start 04/20/20 at 16:45; Stop 04/20/20 at 16:46; Status DC Sodium Bicarbonate (Sodium Bicarb Adult 8.4% Syr) 50 meq 1X ONCE IV Last administered on 04/20/20at 17:32; Start 04/20/20 at 16:45; Stop 04/20/20 at 16:46; Status DC Sodium Bicarbonate 150 meq/Sterile Water 1,150 ml @ 125 mls/hr Q9H12M IV Last administered on 04/20/20at 19:43; Start 04/20/20 at 19:00; Stop 04/21/20 at 02:59; Status DC Magnesium Sulfate 50 ml @ 25 mls/hr PRN DAILY PRN IV for Mag < 1.7 on am labs; Start 04/20/20 at 18:45 Calcium Gluconate (Calcium Gluconate) 1,000 mg Q3H IVP Last administered on 04/21/20at 00:37; Start 04/20/20 at 19:00; Stop 04/21/20 at 01:01; Status DC Sodium Polystyrene Sulfonate (Kayexalate) 45 gm 1X ONCE PO Last administered on 04/20/20at 20:16; Start 04/20/20 at 19:00; Stop 04/20/20 at 19:01; Status DC Ondansetron HCl (Zofran) 4 mg PRN Q6HRS PRN IVP NAUSEA/VOMITING Last administered on 04/23/20at 03:39; Start 04/20/20 at 19:45 Al Hydroxide/Mg Hydroxide (Mylanta Plus Xs) 30 ml PRN Q3HRS PRN PO HEARTBURN / GAS; Start 04/20/20 at 19:45 Calcium Carbonate/ Glycine (Tums) 500 mg PRN Q3HRS PRN PO UPSET STOMACH; Start 04/20/20 at 19:45 Magnesium Hydroxide (Milk Of Magnesia) 2,400 mg PRN Q12HR PRN PO CONSTIPATION; Start 04/20/20 at 19:45 Bisacodyl (Dulcolax Supp) 10 mg PRN DAILY PRN LA CONSTIPATION; Start 04/20/20 at 19:45 Heparin Sodium (Porcine) (Heparin Sodium) 5,000 unit Q8HRS SQ Last administered on 04/22/20at 05:47; Start 04/20/20 at 22:00; Stop 04/22/20 at 19:34; Status DC Calcium Gluconate (Calcium Gluconate) 1,000 mg 1X ONCE IVP Last administered on 04/21/20at 04:14; Start 04/21/20 at 04:15; Stop 04/21/20 at 04:16; Status DC Calcium Carbonate/ Glycine (Tums) 2,000 mg TIDAC PO Last administered on 04/21/20at 17:43; Start 04/21/20 at 11:30; Stop 04/22/20 at 13:19; Status DC Sodium Polystyrene Sulfonate (Kayexalate) 15 gm 1X ONCE PO Last administered on 04/21/20at 10:59; Start 04/21/20 at 08:45; Stop 04/21/20 at 08:49; Status DC Sodium Chloride 1,000 ml @ 1,000 mls/hr Q1H PRN IV hypotension; Start 04/22/20 at 12:30; Stop 04/22/20 at 18:29; Status DC Albumin Human 200 ml @ 200 mls/hr 1X PRN PRN IV Hypotension; Start 04/22/20 at 12:30; Stop 04/22/20 at 18:29; Status DC Sodium Chloride 1,000 ml @ 400 mls/hr Q2H30M PRN IV PATENCY; Start 04/22/20 at 12:30; Stop 04/23/20 at 00:29; Status DC Info (PHARMACY MONITORING -- do not chart) 1 each PRN DAILY PRN MC SEE COMMENTS; Start 04/22/20 at 12:30 Midazolam HCl (Versed) 2 mg STK-MED ONCE .ROUTE ; Start 04/22/20 at 12:53; Stop 04/22/20 at 12:54; Status DC Fentanyl Citrate (Fentanyl 2ml Vial) 100 mcg STK-MED ONCE .ROUTE ; Start 04/22/20 at 12:54; Stop 04/22/20 at 12:54; Status DC Cefazolin Sodium (Ancef) 1 gm STK-MED ONCE IVP ; Start 04/22/20 at 12:59; Stop 04/22/20 at 12:59; Status DC Lidocaine/ Epinephrine (LIDOCAINE 2%-EPI 1:100,000 multi-dose) 20 ml STK-MED ONCE .ROUTE ; Start 04/22/20 at 13:00; Stop 04/22/20 at 13:00; Status DC Sevelamer Carbonate (Renvela) 800 mg TIDWMEALS PO Last administered on 04/22/20at 18:36; Start 04/22/20 at 17:00 Darbepoetin Jimy (ARANESP for DIALYSIS PTS) 60 mcg WEEKLYHS SQ Last administered on 04/22/20at 23:16; Start 04/22/20 at 21:00 Midazolam HCl (Versed) 2 mg 1X ONCE IV Last administered on 04/22/20at 14:05; Start 04/22/20 at 14:00; Stop 04/22/20 at 14:01; Status DC Fentanyl Citrate (Fentanyl 2ml Vial) 100 mcg 1X ONCE IV Last administered on 04/22/20at 14:05; Start 04/22/20 at 14:00; Stop 04/22/20 at 14:01; Status DC Lidocaine/ Epinephrine (LIDOCAINE 2%-EPI 1:100,000 multi-dose) 20 ml 1X ONCE IJ Last administered on 04/22/20at 14:04; Start 04/22/20 at 14:00; Stop 04/22/20 at 14:01; Status DC Cefazolin Sodium (Ancef) 1 gm 1X ONCE IVP Last administered on 04/22/20at 14: 03; Start 04/22/20 at 14:00; Stop 04/22/20 at 14:01; Status DC Vitals/I & O Vital Sign - Last 24 Hours 04/22/20 04/22/20 04/22/20 04/22/20 07:00 08:00 11:00 13:59 Temp 98.1 98.2 98.1 98.2 Pulse 90 95 97 Resp 16 18 12 B/P (MAP) 157/89 (111) 159/98 (118) Pulse Ox 99 98 100 O2 Delivery Room Air Room Air Room Air Nasal Cannula O2 Flow Rate 2.0 2.0 04/22/20 04/22/20 04/22/20 04/22/20 14:05 19:04 20:00 23:00 Temp 98.1 98.2 98.1 98.2 Pulse 95 90 Resp 19 18 16 B/P (MAP) 143/75 (97) 143/77 (99) Pulse Ox 100 96 97 O2 Delivery Nasal Cannula Room Air Room Air Room Air O2 Flow Rate 2.0 04/23/20 03:00 Temp 98.2 98.2 Pulse 98 Resp 16 B/P (MAP) 165/94 (117) Pulse Ox 95 O2 Delivery Room Air Intake and Output 04/22/20 04/22/20 04/23/20 15:00 23:00 07:00 Intake Total 120 ml Output Total 300 ml 0 ml Balance -300 ml 120 ml Nutrition Consultation Dietary Evaluation: Recommendations by RD: Dietary education by RD, Increase Calorie Intake, Protein supplementation Comments: Renal diet with nepro oral nutrition supplements Expected Outcomes/Goals: improved po intake, improved renal labs with HD Interpretation of weight loss: >7.5% in 3 months Malnutrition Findings: Food and Nutrition Intake (Sev: <50% est energy req 5days Body Fat Depletion (Non Severe: Mild Depletion Weight Status: Appropriate Justicifation of Admission Dx: Justifications for Admission: Justification of Admission Dx: Yes Acute Renal Failure: RF Can't Be Managed Outpt MACK MAR MD Apr 23, 2020 06:54
[2020-04-23] MEDS ORDERED: DIALYSIS PATIENT. MC PRN ×2 (07:15)
[2020-04-23] MEDS ORDERED: IV NORMAL SALINE 1000ML BAG 1,000 ML IV PRN ×2 (07:15)
[2020-04-23] MEDS ORDERED: ALBUMIN HUMAN 25% 200 ML IV PRN (07:15)
[2020-04-23 07:31] LABS: HEMATOCRIT 23.2 % (39.0-53.0); HEMOGLOBIN 7.6 g/dL (13.0-17.5); RED BLOOD COUNT 2.54 x10^6/uL (4.30-5.70); RED CELL DISTRIBUTION WIDTH 15.3 % (11.5-14.5); WHITE BLOOD COUNT 3.9 x10^3/uL (4.0-11.0)
[2020-04-23 07:57] LABS: ALBUMIN 2.8 g/dL (3.4-5.0); CALCIUM 6.1 mg/dL (8.5-10.1); CREATININE 9.2 mg/dL (0.7-1.3); GFR 5.7; PHOSPHORUS 7.4 mg/dL (2.6-4.7); POTASSIUM 4.3 mmol/L (3.5-5.1)
[2020-04-23] MEDS: SEVELAMER CARBONATE 800 MG TABLET. PO SCH ×3 (08:00→17:00)
[2020-04-23 08:50] LABS: ALBUMIN 2.8 g/dL (3.4-5.0); DIRECT BILIRUBIN 0.1 mg/dL (0.0-0.2); TOTAL BILIRUBIN 0.4 mg/dL (0.2-1.0); TOTAL PROTEIN 5.4 g/dL (6.4-8.2)
[2020-04-23 09:14] LABS: KAPPA FREE 194.8 mg/L (3.3-19.4); KAPPA LAMBDA RATIO 1.43 (0.26-1.65); LAMBDA FREE 136.7 mg/L (5.7-26.3)
--- NOTE | 2020-04-23 09:32 | PDOC ---
Date of Service: DATE: 04/23/20 TIME: 09:29 Subjective: Subjective: Feeling okay - no GI complaints. Objective: Objective: Looks like shraddha Floyd early this morning. Vital Signs: Vital Signs Date Time Temp Pulse Resp B/P (MAP) Pulse Ox O2 Delivery O2 Flow Rate FiO2 04/23/20 03:00 98.2 98 16 165/94 (117) 95 Room Air 98.2 04/22/20 14:05 2.0 Labs: Laboratory Tests Test 04/22/20 10:37 04/23/20 00:49 04/23/20 06:40 04/23/20 07:15 SARS-CoV-2 Antigen (Rapid) Negative Glucose (Fingerstick) 103 mg/dL 97 mg/dL White Blood Count 3.9 x10^3/uL Red Blood Count 2.54 x10^6/uL Hemoglobin 7.6 g/dL Hematocrit 23.2 % Mean Corpuscular Volume 91 fL Mean Corpuscular Hemoglobin 30 pg Mean Corpuscular Hemoglobin Concent 33 g/dL Red Cell Distribution Width 15.3 % Platelet Count 94 x10^3/uL Sodium Level 145 mmol/L Potassium Level 4.3 mmol/L Chloride Level 106 mmol/L Carbon Dioxide Level 23 mmol/L Anion Gap 16 Blood Urea Nitrogen 113 mg/dL Creatinine 9.2 mg/dL Estimated GFR (Cockcroft-Gault) 5.7 Glucose Level 90 mg/dL Calcium Level 6.1 mg/dL Phosphorus Level 7.4 mg/dL Iron Level 30 ug/dL Total Iron Binding Capacity 137 ug/dL Iron Saturation 22 % Total Bilirubin 0.4 mg/dL Direct Bilirubin 0.1 mg/dL Aspartate Amino Transf (AST/SGOT) 27 U/L Alanine Aminotransferase (ALT/SGPT) 72 U/L Alkaline Phosphatase 131 U/L Total Protein 5.4 g/dL Albumin 2.8 g/dL Test 04/23/20 07:45 Magnesium Level 1.6 mg/dL PE: GEN: dialyzing LUNGS: CTAB HEART: RRR ABD: non-tender NEURO/PSYCH: A & O 3 A/P: SAVANNAH vs ESRD - started HD Weight loss ACD (stable), thrombocytopenia, elevated LFTs (better) COVID negative 04/20 -- Continue per nephrology, continue support. Justicifation of Admission Dx: Justifications for Admission: Justification of Admission Dx: Yes Acute Renal Failure: RF Can't Be Managed Outpt PORFIRIO WHITE Apr 23, 2020 09:32
[2020-04-23 11:39] LABS: ALBUM 3.3 g/dL (2.9-4.4); ALPHA 1 0.2 g/dL (0.0-0.4); ALPHA 2 0.7 g/dL (0.4-1.0); BETA 0.8 g/dL (0.7-1.3); GAMMA 0.9 g/dL (0.4-1.8); PROTEIN TOTAL 5.9 g/dL (6.0-8.5); SPEP AG RATIO 1.3 (0.7-1.7)
--- NOTE | 2020-04-23 12:15 | PDOC ---
Renal-Progress Notes Subjective Notes Notes NO NEW COMPLAINTS History of Present Illness Hx of present illness STABLE Vitals Vitals Vital Signs Date Time Temp Pulse Resp B/P (MAP) Pulse Ox O2 Delivery O2 Flow Rate FiO2 04/23/20 03:00 98.2 98 16 165/94 (117) 95 Room Air 98.2 04/22/20 14:05 2.0 Weight Weight [ ] I.O. Intake and Output Intake and Output 04/23/20 07:00 Intake Total 120 ml Output Total 300 ml Balance -180 ml Intake Oral 120 ml Output Urine Total 300 ml # Voids 2 Labs Labs Laboratory Tests Test 04/23/20 00:49 04/23/20 06:40 04/23/20 07:15 04/23/20 07:45 Glucose (Fingerstick) 103 mg/dL (70-99) 97 mg/dL (70-99) White Blood Count 3.9 x10^3/uL (4.0-11.0) Red Blood Count 2.54 x10^6/uL (4.30-5.70) Hemoglobin 7.6 g/dL (13.0-17.5) Hematocrit 23.2 % (39.0-53.0) Mean Corpuscular Volume 91 fL (79-100) Mean Corpuscular Hemoglobin 30 pg (25-35) Mean Corpuscular Hemoglobin Concent 33 g/dL (31-37) Red Cell Distribution Width 15.3 % (11.5-14.5) Platelet Count 94 x10^3/uL (140-400) Sodium Level 145 mmol/L (136-145) Potassium Level 4.3 mmol/L (3.5-5.1) Chloride Level 106 mmol/L (98-107) Carbon Dioxide Level 23 mmol/L (21-32) Anion Gap 16 (6-14) Blood Urea Nitrogen 113 mg/dL (8-26) Creatinine 9.2 mg/dL (0.7-1.3) Estimated GFR (Cockcroft-Gault) 5.7 Glucose Level 90 mg/dL (70-99) Calcium Level 6.1 mg/dL (8.5-10.1) Phosphorus Level 7.4 mg/dL (2.6-4.7) Iron Level 30 ug/dL (65-175) Total Iron Binding Capacity 137 ug/dL (250-450) Iron Saturation 22 % (15-34) Total Bilirubin 0.4 mg/dL (0.2-1.0) Direct Bilirubin 0.1 mg/dL (0.0-0.2) Aspartate Amino Transf (AST/SGOT) 27 U/L (15-37) Alanine Aminotransferase (ALT/SGPT) 72 U/L (16-63) Alkaline Phosphatase 131 U/L (46-116) Total Protein 5.4 g/dL (6.4-8.2) Albumin 2.8 g/dL (3.4-5.0) Magnesium Level 1.6 mg/dL (1.8-2.4) Micro Micro Microbiology 04/22/20 Urine Culture - Preliminary, Resulted Review of Systems Constitutional: yes: alert Ears/Nose/Throat: Yes: no symptom reported Eyes: Yes: no symptom reported Pulmonary: Yes no symptom reported Cardiovascular: Yes no symptom reported Gastrointestional: Yes: nausea, other (WT LOSS) Genitourinary: Yes: no symptom reported Musculoskeletal: Yes: no symptom reported Skin: Yes no symptom reported Psychiatric/Neurological: Yes: no symptom reported Endocrine: Yes: no symptom reported Hematologic/Lymphatic: Yes: anemia Physical Exam General Appearance: no apparent distress Skin: warm Respiratory: bilateral CTA Heart: S1S2 Abdomen: soft, bowel sounds present Genitourinary: bladder flat Extremities: pulses present Neurology: alert Assessment Assessment IMP UREMIA ANEMIA OF RENAL FAILURE WT LOSS RENAL FAILURE-ACUTE VS ESRD HTN HX DM II HYPERPHOSPHATEMIA MET ACIDOSIS PANCYTOPENIA LOW MAG PLAN SLOW HD AGAIN TODAY QT OF 2.5 QB OF 250 NO UF WILL PLAN FOR DAILY HD PENDING RENAL BIOPSY CONT ARANESP VENOFER CONT RENVELA ELEVATED K/L CHAINS-PROB DUE TO RENAL FAILURE WILL FOLLOW CHALO ALVAREZ MD Apr 23, 2020 12:15
[2020-04-23] MEDS ORDERED: MAGNESIUM SULFATE 2GM 50 ML IV ONE (13:00)
--- NOTE | 2020-04-23 13:08 | PDOC2 ---
CONSULT Date of Consult Date of Consult DATE: 04/23/20 TIME: 12:53 Reason for Consult Reason for Consult: Unintentional weight loss. Possible malignancy Referring Physician Referring Physician: Dr. Gonzalez Identification/Chief Complaint Chief Complaint Weight loss Source Source: Chart review, Patient History of Present Illness Reason for Visit: Patient is 69-year-old male who has been admitted to the hospital after he presented reporting weight loss. Patient has a known history of type 2 diabetes for the past 2 years. Does not typically seek health care. Patient reports a recent onset weight loss of at least 10 pounds. He also notes associated nausea, vomiting and poor appetite. He notes occasional night sweats. His initial evaluation in [facility] emergency room showed severe renal insufficiency with BUN of 211, creatinine of 14, bicarbonate 11, anion gap of 21 a potassium of 6.9 calcium of 5.9 and an NT proBNP of 35,000. He has been started on hemodialysis with improvement and hyperkalemia and acidosis. His lab studies have also shown normocytic anemia and thrombocytopenia. No prior labs are available for comparison. Hematology consultation has been sought due to anemia, thrombocytopenia noted on labs and associated weight loss to evaluate for possible malignancy. Past Medical History Cardiovascular: HTN Past Surgical History Past Surgical History: No pertinent history Family History Family History: Hypertension Social History No ALCOHOL: none Drugs: None Lives: Alone Current Problem List Problem List Problems Medical Problems: (1) Elevated troponin Status: Acute (2) PNA (pneumonia) Status: Acute Current Medications Current Medications Current Medications Ceftriaxone Sodium (Rocephin) 1 gm 1X ONCE IVP Last administered on 04/20/20at 17:42; Start 04/20/20 at 16:15; Stop 04/20/20 at 16:17; Status DC Azithromycin 250 ml @ 250 mls/hr 1X ONCE IV Last administered on 04/20/20at 17:45; Start 04/20/20 at 16:15; Stop 04/20/20 at 17:14; Status DC Aspirin (Aspirin Chewable) 324 mg 1X ONCE PO Last administered on 04/20/20at 17:48; Start 04/20/20 at 16:15; Stop 04/20/20 at 16:17; Status DC Calcium Gluconate (Calcium Gluconate) 1,000 mg 1X ONCE IVP Last administered on 04/20/20at 17:34; Start 04/20/20 at 16:45; Stop 04/20/20 at 16:46; Status DC Sodium Bicarbonate (Sodium Bicarb Adult 8.4% Syr) 50 meq 1X ONCE IV Last administered on 04/20/20at 17:32; Start 04/20/20 at 16:45; Stop 04/20/20 at 16:46; Status DC Sodium Bicarbonate 150 meq/Sterile Water 1,150 ml @ 125 mls/hr Q9H12M IV Last administered on 04/20/20at 19:43; Start 04/20/20 at 19:00; Stop 04/21/20 at 02:59; Status DC Magnesium Sulfate 50 ml @ 25 mls/hr PRN DAILY PRN IV for Mag < 1.7 on am labs; Start 04/20/20 at 18:45 Calcium Gluconate (Calcium Gluconate) 1,000 mg Q3H IVP Last administered on 04/21/20at 00:37; Start 04/20/20 at 19:00; Stop 04/21/20 at 01:01; Status DC Sodium Polystyrene Sulfonate (Kayexalate) 45 gm 1X ONCE PO Last administered on 04/20/20at 20:16; Start 04/20/20 at 19:00; Stop 04/20/20 at 19:01; Status DC Ondansetron HCl (Zofran) 4 mg PRN Q6HRS PRN IVP NAUSEA/VOMITING Last administered on 04/23/20at 11:58; Start 04/20/20 at 19:45 Al Hydroxide/Mg Hydroxide (Mylanta Plus Xs) 30 ml PRN Q3HRS PRN PO HEARTBURN / GAS; Start 04/20/20 at 19:45 Calcium Carbonate/ Glycine (Tums) 500 mg PRN Q3HRS PRN PO UPSET STOMACH; Start 04/20/20 at 19:45 Magnesium Hydroxide (Milk Of Magnesia) 2,400 mg PRN Q12HR PRN PO CONSTIPATION; Start 04/20/20 at 19:45 Bisacodyl (Dulcolax Supp) 10 mg PRN DAILY PRN [place] CONSTIPATION; Start 04/20/20 at 19:45 Heparin Sodium (Porcine) (Heparin Sodium) 5,000 unit Q8HRS SQ Last administered on 04/22/20at 05:47; Start 04/20/20 at 22:00; Stop 04/22/20 at 19:34; Status DC Calcium Gluconate (Calcium Gluconate) 1,000 mg 1X ONCE IVP Last administered on 04/21/20at 04:14; Start 04/21/20 at 04:15; Stop 04/21/20 at 04:16; Status DC Calcium Carbonate/ Glycine (Tums) 2,000 mg TIDAC PO Last administered on 04/21/20at 17:43; Start 04/21/20 at 11:30; Stop 04/22/20 at 13:19; Status DC Sodium Polystyrene Sulfonate (Kayexalate) 15 gm 1X ONCE PO Last administered on 04/21/20at 10:59; Start 04/21/20 at 08:45; Stop 04/21/20 at 08:49; Status DC Sodium Chloride 1,000 ml @ 1,000 mls/hr Q1H PRN IV hypotension; Start 04/22/20 at 12:30; Stop 04/22/20 at 18:29; Status DC Albumin Human 200 ml @ 200 mls/hr 1X PRN PRN IV Hypotension; Start 04/22/20 at 12:30; Stop 04/22/20 at 18:29; Status DC Sodium Chloride 1,000 ml @ 400 mls/hr Q2H30M PRN IV PATENCY; Start 04/22/20 at 12:30; Stop 04/23/20 at 00:29; Status DC Info (PHARMACY MONITORING -- do not chart) 1 each PRN DAILY PRN MC SEE COMMENTS; Start 04/22/20 at 12:30; Stop 04/23/20 at 07:20; Status DC Midazolam HCl (Versed) 2 mg STK-MED ONCE .ROUTE ; Start 04/22/20 at 12:53; Stop 04/22/20 at 12:54; Status DC Fentanyl Citrate (Fentanyl 2ml Vial) 100 mcg STK-MED ONCE .ROUTE ; Start 04/22/20 at 12:54; Stop 04/22/20 at 12:54; Status DC Cefazolin Sodium (Ancef) 1 gm STK-MED ONCE IVP ; Start 04/22/20 at 12:59; Stop 04/22/20 at 12:59; Status DC Lidocaine/ Epinephrine (LIDOCAINE 2%-EPI 1:100,000 multi-dose) 20 ml STK-MED ONCE .ROUTE ; Start 04/22/20 at 13:00; Stop 04/22/20 at 13:00; Status DC Sevelamer Carbonate (Renvela) 800 mg TIDWMEALS PO Last administered on 04/22/20at 18:36; Start 04/22/20 at 17:00 Darbepoetin Jimy (ARANESP for DIALYSIS PTS) 60 mcg WEEKLYHS SQ Last administered on 04/22/20at 23:16; Start 04/22/20 at 21:00 Midazolam HCl (Versed) 2 mg 1X ONCE IV Last administered on 04/22/20at 14:05; Start 04/22/20 at 14:00; Stop 04/22/20 at 14:01; Status DC Fentanyl Citrate (Fentanyl 2ml Vial) 100 mcg 1X ONCE IV Last administered on 04/22/20at 14:05; Start 04/22/20 at 14:00; Stop 04/22/20 at 14:01; Status DC Lidocaine/ Epinephrine (LIDOCAINE 2%-EPI 1:100,000 multi-dose) 20 ml 1X ONCE IJ Last administered on 04/22/20at 14:04; Start 04/22/20 at 14:00; Stop 04/22/20 at 14:01; Status DC Cefazolin Sodium (Ancef) 1 gm 1X ONCE IVP Last administered on 04/22/20at 14:03; Start 04/22/20 at 14:00; Stop 04/22/20 at 14:01; Status DC Sodium Chloride 1,000 ml @ 1,000 mls/hr Q1H PRN IV hypotension; Start 04/23/20 at 07:15; Stop 04/23/20 at 13:14 Albumin Human 200 ml @ 200 mls/hr 1X PRN PRN IV Hypotension; Start 04/23/20 at 07:15; Stop 04/23/20 at 13:14 Sodium Chloride 1,000 ml @ 400 mls/hr Q2H30M PRN IV PATENCY; Start 04/23/20 at 07:15; Stop 04/23/20 at 19:14 Info (PHARMACY MONITORING -- do not chart) 1 each PRN DAILY PRN MC SEE COMMENTS; Start 04/23/20 at 07:15; Stop 04/23/20 at 07:19; Status DC Info (PHARMACY MONITORING -- do not chart) 1 each PRN DAILY PRN MC SEE COMMENTS; Start 04/23/20 at 07:15 Magnesium Sulfate 50 ml @ 25 mls/hr 1X ONCE IV ; Start 04/23/20 at 13:00; Stop 04/23/20 at 14:59 Iron Sucrose 200 mg/Sodium Chloride 110 ml @ 55 mls/hr 1X ONCE IV ; Start 04/23/20 at 14:00; Stop 04/23/20 at 15:59 Allergies Allergies: Coded Allergies: No Known Drug Allergies (Unverified , 04/20/20) ROS General: YES: Fatigue, Malaise PSYCHOLOGICAL ROS: No: Hallucinations, Irritablity Eyes: No Eye Pain, No Itchy Eyes HEENT: No: Oral lesions, Sinus pain ALLERGY AND IMMUNOLOGY: No: Nasal Congestion, Post Nasal Drip Hematological and Lymphatic: No: Brusing, Night Sweats ENDOCRINE: YES: Malaise/lethargy Respiratory: YES: Shortness of breath; No: Cough Cardiovascular: No Chest Pain Gastrointestinal: Yes Nausea; No Abdominal Pain Genitourinary: No Dysuria Musculoskeletal: No Joint Pain Neurological: No Confusion Skin: No Dry Skin Physical Exam General: Alert, Oriented X3 HEENT: Atraumatic Lungs: Clear to auscultation Heart: Regular rate, Normal S1, Normal S2 Abdomen: Normal bowel sounds, Soft Extremities: No clubbing Skin: No breakdown Neuro: Normal gait Psych/Mental Status: Mental status NL MUSCULOSKELETAL: No swelling Vitals VITALS Vital Signs Date Time Temp Pulse Resp B/P (MAP) Pulse Ox O2 Delivery O2 Flow Rate FiO2 04/23/20 03:00 98.2 98 16 165/94 (117) 95 Room Air 98.2 04/22/20 14:05 2.0 Labs Labs Laboratory Tests Test 04/21/20 13:18 04/22/20 05:45 04/22/20 07:00 04/22/20 10:37 Haptoglobin 226 mg/dL (32-363) Erythropoietin 9.2 mIU/mL (2.6-18.5) Total Protein (PEP) 5.9 g/dL (6.0-8.5) Albumin (PEP) 3.3 g/dL (2.9-4.4) Globulin 2.6 g/dL (2.2-3.9) Albumin/Globulin Ratio 1.3 (0.7-1.7) Zjukp-4-Plknuqemu 0.2 g/dL (0.0-0.4) Zewcr-5-Eftaxmfnj 0.7 g/dL (0.4-1.0) Beta Globulins 0.8 g/dL (0.7-1.3) Gamma Globulins 0.9 g/dL (0.4-1.8) Protein Electrophoresis M-Paddy Not observed g/dL (Not Protein Electrophoresis Comment Comment (.) Immunoglobulin Maybeury/Lambda Ratio 1.43 (0.26-1.65) Free Maybeury Light Chains 194.8 mg/L (3.3-19.4) Free Lambda Light Chains 136.7 mg/L (5.7-26.3) White Blood Count 3.9 x10^3/uL (4.0-11.0) Red Blood Count 2.68 x10^6/uL (4.30-5.70) Hemoglobin 8.0 g/dL (13.0-17.5) Hematocrit 24.4 % (39.0-53.0) Mean Corpuscular Volume 91 fL (79-100) Mean Corpuscular Hemoglobin 30 pg (25-35) Mean Corpuscular Hemoglobin Concent 33 g/dL (31-37) Red Cell Distribution Width 15.4 % (11.5-14.5) Platelet Count 113 x10^3/uL (140-400) Neutrophils (%) (Auto) 63 % (31-73) Lymphocytes (%) (Auto) 20 % (24-48) Monocytes (%) (Auto) 12 % (0-9) Eosinophils (%) (Auto) 3 % (0-3) Basophils (%) (Auto) 1 % (0-3) Neutrophils # (Auto) 2.4 x10^3/uL (1.8-7.7) Lymphocytes # (Auto) 0.8 x10^3/uL (1.0-4.8) Monocytes # (Auto) 0.5 x10^3/uL (0.0-1.1) Eosinophils # (Auto) 0.1 x10^3/uL (0.0-0.7) Basophils # (Auto) 0.1 x10^3/uL (0.0-0.2) Prothrombin Time 15.9 SEC (11.7-14.0) Prothromb Time International Ratio 1.3 (0.8-1.1) Activated Partial Thromboplast Time 40 SEC (24-38) Sodium Level 148 mmol/L (136-145) Potassium Level 5.4 mmol/L (3.5-5.1) Chloride Level 108 mmol/L (98-107) Carbon Dioxide Level 14 mmol/L (21-32) Anion Gap 26 (6-14) Blood Urea Nitrogen 188 mg/dL (8-26) Creatinine 13.8 mg/dL (0.7-1.3) Estimated GFR (Cockcroft-Gault) 3.6 Glucose Level 59 mg/dL (70-99) Calcium Level 6.0 mg/dL (8.5-10.1) Phosphorus Level 11.1 mg/dL (2.6-4.7) Magnesium Level 1.7 mg/dL (1.8-2.4) Albumin 3.1 g/dL (3.4-5.0) Urine Collection Type Unknown Urine Color Yellow Urine Clarity Clear Urine pH 5.5 (<5.0-8.0) Urine Specific [facility] 1.015 (1.000-1.030) Urine Protein 100 mg/dL (NEG-TRACE) Urine Glucose (UA) Negative mg/dL (NEG) Urine Ketones (Stick) Negative mg/dL (NEG) Urine Blood Large (NEG) Urine Nitrite Negative (NEG) Urine Bilirubin Negative (NEG) Urine Urobilinogen Dipstick 0.2 mg/dL (0.2 mg/dL) Urine Leukocyte Esterase Trace (NEG) Urine RBC 3-5 /HPF (0-2) Urine WBC 5-10 /HPF (0-4) Urine Squamous Epithelial Cells Occ /LPF Urine Bacteria Moderate /HPF (0-FEW) Urine Random Sodium 50 mmol/L (Not Estab.) SARS-CoV-2 Antigen (Rapid) Negative (NEGATIVE) Test 04/23/20 00:49 04/23/20 06:40 04/23/20 07:15 04/23/20 07:45 Glucose (Fingerstick) 103 mg/dL (70-99) 97 mg/dL (70-99) White Blood Count 3.9 x10^3/uL (4.0-11.0) Red Blood Count 2.54 x10^6/uL (4.30-5.70) Hemoglobin 7.6 g/dL (13.0-17.5) Hematocrit 23.2 % (39.0-53.0) Mean Corpuscular Volume 91 fL (79-100) Mean Corpuscular Hemoglobin 30 pg (25-35) Mean Corpuscular Hemoglobin Concent 33 g/dL (31-37) Red Cell Distribution Width 15.3 % (11.5-14.5) Platelet Count 94 x10^3/uL (140-400) Sodium Level 145 mmol/L (136-145) Potassium Level 4.3 mmol/L (3.5-5.1) Chloride Level 106 mmol/L (98-107) Carbon Dioxide Level 23 mmol/L (21-32) Anion Gap 16 (6-14) Blood Urea Nitrogen 113 mg/dL (8-26) Creatinine 9.2 mg/dL (0.7-1.3) Estimated GFR (Cockcroft-Gault) 5.7 Glucose Level 90 mg/dL (70-99) Calcium Level 6.1 mg/dL (8.5-10.1) Phosphorus Level 7.4 mg/dL (2.6-4.7) Iron Level 30 ug/dL (65-175) Total Iron Binding Capacity 137 ug/dL (250-450) Iron Saturation 22 % (15-34) Total Bilirubin 0.4 mg/dL (0.2-1.0) Direct Bilirubin 0.1 mg/dL (0.0-0.2) Aspartate Amino Transf (AST/SGOT) 27 U/L (15-37) Alanine Aminotransferase (ALT/SGPT) 72 U/L (16-63) Alkaline Phosphatase 131 U/L (46-116) Total Protein 5.4 g/dL (6.4-8.2) Albumin 2.8 g/dL (3.4-5.0) Magnesium Level 1.6 mg/dL (1.8-2.4) Test 04/23/20 12:18 Glucose (Fingerstick) 75 mg/dL (70-99) Laboratory Tests Test 04/23/20 00:49 04/23/20 06:40 04/23/20 07:15 04/23/20 07:45 Glucose (Fingerstick) 103 mg/dL (70-99) 97 mg/dL (70-99) White Blood Count 3.9 x10^3/uL (4.0-11.0) Red Blood Count 2.54 x10^6/uL (4.30-5.70) Hemoglobin 7.6 g/dL (13.0-17.5) Hematocrit 23.2 % (39.0-53.0) Mean Corpuscular Volume 91 fL (79-100) Mean Corpuscular Hemoglobin 30 pg (25-35) Mean Corpuscular Hemoglobin Concent 33 g/dL (31-37) Red Cell Distribution Width 15.3 % (11.5-14.5) Platelet Count 94 x10^3/uL (140-400) Sodium Level 145 mmol/L (136-145) Potassium Level 4.3 mmol/L (3.5-5.1) Chloride Level 106 mmol/L (98-107) Carbon Dioxide Level 23 mmol/L (21-32) Anion Gap 16 (6-14) Blood Urea Nitrogen 113 mg/dL (8-26) Creatinine 9.2 mg/dL (0.7-1.3) Estimated GFR (Cockcroft-Gault) 5.7 Glucose Level 90 mg/dL (70-99) Calcium Level 6.1 mg/dL (8.5-10.1) Phosphorus Level 7.4 mg/dL (2.6-4.7) Iron Level 30 ug/dL (65-175) Total Iron Binding Capacity 137 ug/dL (250-450) Iron Saturation 22 % (15-34) Total Bilirubin 0.4 mg/dL (0.2-1.0) Direct Bilirubin 0.1 mg/dL (0.0-0.2) Aspartate Amino Transf (AST/SGOT) 27 U/L (15-37) Alanine Aminotransferase (ALT/SGPT) 72 U/L (16-63) Alkaline Phosphatase 131 U/L (46-116) Total Protein 5.4 g/dL (6.4-8.2) Albumin 2.8 g/dL (3.4-5.0) Magnesium Level 1.6 mg/dL (1.8-2.4) Test 04/23/20 12:18 Glucose (Fingerstick) 75 mg/dL (70-99) Assessment/Plan Assessment/Plan Assessment: Normocytic anemia Thrombocytopenia Renal insufficiency, SAVANNAH versus chronic kidney disease that has progressed to ESRD, initiated on hemodialysis Hypocalcemia Hyperphosphatemia Type 2 diabetes Recommendations: -I recommended and requested CBC with differential and reticulocyte count. This is indicative of a hypoproliferative anemia -Iron studies and B12 are evaluated. Iron studies are suggestive of anemia of chronic renal failure. B12 was normal -Given renal insufficiency and anemia, her recommended SPEP and free light chain levels. SPEP did not show an M spike. Free light chain level ratio was normal (increased kappa and lambda levels are expected given renal insufficiency) -Would not recommend a bone marrow biopsy at this point given likely diagnosis of anemia of chronic renal failure -Continue with evaluation of renal insufficiency per nephrology. Suspect ESRD secondary to type 2 diabetes -Check A1c to determine glycemic control -Consider checking PTH given hypercalcemia and hyperphosphatemia -Agree with nephrology recommendation of IV iron supplementation -If work-up shows CKD, he may benefit from JOSE ALBERTO therapy as outpatient -Rest per primary service Tico Rodriguez MD Medical Oncology/Hematology Ph: [phone] EDI RODRIGUEZ MD Apr 23, 2020 13:08
--- NOTE | 2020-04-23 13:08 | RAD ---
Procedure: Tunneled hemodialysis catheter placement 04/23/2020 11:04 AM Clinical Indication: End-stage renal disease Sterility: All elements of maximal sterile barrier technique including the use of a cap, mask, sterile gown, sterile gloves, large sterile sheet, appropriate hand hygiene, and 2% chlorhexidine for cutaneous antisepsis (or acceptable alternative antiseptic per current guidelines) were followed for this procedure. Consent: The procedure was explained in its entirety to the patient or the patients designated automobile rental representative by a member of the treatment team, including a discussion of the risks, benefits and commonly accepted alternatives to the procedure, as well as the expected consequences of no therapy whatsoever. Discussion of the risks included, but was not limited to, those that are most frequent and those that are rare but possibly severe or life-threatening, as well as the possibility of unforeseen complications. Technique and Findings: Following informed consent, a timeout procedure was performed. The patient was prepped and draped in the usual sterile fashion. Ultrasound interrogation of the right neck revealed patency and compressibility of the right internal jugular vein. A 21-gauge micropuncture was then used to gain access to this vein under ultrasound guidance. A hard copy ultrasound image was recorded. The needle was exchanged over a wire for a 4 Armenian sheath which was used to guide an guidewire into the IVC. The skin over the right anterior chest wall was copiously anesthetized with 1% Lidocaine and a small dermatotomy was made. A 23 cm tipped cuff palindrome tunneled hemodialysis catheter was then tunneled subcutaneously towards the neck dermatotomy and deployed through a large caliber peel-away sheath under fluoroscopic guidance such that the distal tip resided in the mid right atrium. Manual flow rates were assessed and found to be within normal limits. The catheter was then flushed, packed with Heparin, capped, and sutured to the skin. The neck dermatotomy was closed with Dermabond. No immediate complications were identified. Sedation: Conscious sedation was administered for 25 minutes. The patient was monitored by a qualified independent observer throughout the time of sedation. Please refer to the medical record for exact doses of medications utilized to achieve moderate sedation. Fluoroscopy time: 0.5 minutes Dose area product:4 Gycm2 Impression: Tunneled hemodialysis catheter placement as described
[2020-04-23 13:15] LABS: CALCIUM PTH 6.6 mg/dL (8.6-10.2); CREATININE PTH 12.95 mg/dL (0.76-1.27); PHOSPHORUS PTH 11.1 mg/dL (2.8-4.1); PTH INTACT 241 pg/mL (15-65)
[2020-04-23] MEDS ORDERED: IRON SUCROSE COMPLEX 200 MG in IV NORMAL SALINE 100ML 100 ML IV ONE (14:00)
[2020-04-23 14:59] VITALS: BP 149/74
--- NOTE | 2020-04-23 17:02 | PDOC ---
DYLAN PAULINO PET SITTER 04/23/20 1702: CARDIO Progress Notes Date and Time Date of Service 04/23/2020 Time of Evaluation 1310 Subjective Subjective: No Chest Pain, No shortness of breath, No Palpitations Vitals Vitals Vital Signs Date Time Temp Pulse Resp B/P (MAP) Pulse Ox O2 Delivery O2 Flow Rate FiO2 04/23/20 14:59 98.7 93 18 149/74 (99) 98 Room Air 98.7 04/22/20 14:05 2.0 Weight Weight [ ] Input and Output Intake and Output Intake and Output 04/23/20 07:00 Intake Total 120 ml Output Total 300 ml Balance -180 ml Intake Oral 120 ml Output Urine Total 300 ml # Voids 2 Laboratory Labs Laboratory Tests Test 04/23/20 00:49 04/23/20 06:40 04/23/20 07:15 04/23/20 07:45 Glucose (Fingerstick) 103 mg/dL (70-99) 97 mg/dL (70-99) White Blood Count 3.9 x10^3/uL (4.0-11.0) Red Blood Count 2.54 x10^6/uL (4.30-5.70) Hemoglobin 7.6 g/dL (13.0-17.5) Hematocrit 23.2 % (39.0-53.0) Mean Corpuscular Volume 91 fL (79-100) Mean Corpuscular Hemoglobin 30 pg (25-35) Mean Corpuscular Hemoglobin Concent 33 g/dL (31-37) Red Cell Distribution Width 15.3 % (11.5-14.5) Platelet Count 94 x10^3/uL (140-400) Sodium Level 145 mmol/L (136-145) Potassium Level 4.3 mmol/L (3.5-5.1) Chloride Level 106 mmol/L (98-107) Carbon Dioxide Level 23 mmol/L (21-32) Anion Gap 16 (6-14) Blood Urea Nitrogen 113 mg/dL (8-26) Creatinine 9.2 mg/dL (0.7-1.3) Estimated GFR (Cockcroft-Gault) 5.7 Glucose Level 90 mg/dL (70-99) Calcium Level 6.1 mg/dL (8.5-10.1) Phosphorus Level 7.4 mg/dL (2.6-4.7) Iron Level 30 ug/dL (65-175) Total Iron Binding Capacity 137 ug/dL (250-450) Iron Saturation 22 % (15-34) Total Bilirubin 0.4 mg/dL (0.2-1.0) Direct Bilirubin 0.1 mg/dL (0.0-0.2) Aspartate Amino Transf (AST/SGOT) 27 U/L (15-37) Alanine Aminotransferase (ALT/SGPT) 72 U/L (16-63) Alkaline Phosphatase 131 U/L (46-116) Total Protein 5.4 g/dL (6.4-8.2) Albumin 2.8 g/dL (3.4-5.0) Magnesium Level 1.6 mg/dL (1.8-2.4) Test 04/23/20 12:18 Glucose (Fingerstick) 75 mg/dL (70-99) Microbiology Micro Microbiology 04/22/20 Urine Culture - Preliminary, Resulted Review of Systems Constitutional: yes: alert Ears/Nose/Throat: Yes: no symptom reported Eyes: Yes: no symptom reported Pulmonary: Yes no symptom reported Cardiovascular: Yes no symptom reported Gastrointestional: Yes: nausea, other (WT LOSS) Genitourinary: Yes: no symptom reported Musculoskeletal: Yes: no symptom reported Skin: Yes no symptom reported Psychiatric/Neurological: Yes: no symptom reported Endocrine: Yes: no symptom reported Hematologic/Lymphatic: Yes: anemia Physical Exam HEENT: Neck Supple W Full Motion Chest: Symmetric LUNGS: Clear to Auscultation Heart: S1S2, RRR (SR) Abdomen: Soft N/T Extremities: No Edema, No Calf Tenderness Neurology: alert, oriented, follow commands Assessment Assessment 1. Likely New ESRD 2. Anemia possibly r/t to renal disease: post transfusion. 3. Mild transaminitis: better 4. Minimally elevated troponin at 0.06. No acute ischemic EKG changes. no arrhythmias. Suspect demand mediated. No chest pain 5. Acute CHF with likely diastolic dysfunction 6. HTN: controlled Recommendations 1. TTE pending today 2. Fluid off loading per HD. Labetolol IV PRN 3. Lipids and TSH 4. Supportive care Justicifation of Admission Dx: Justifications for Admission: Justification of Admission Dx: Yes Acute Renal Failure: RF Can't Be Managed Outpt MATILDA CORTES MD 04/23/20 1820: CARDIO Progress Notes Assessment Assessment Patient seen and examined I agree with our nurse practitioners assessment and plan. New ESRD. Hemodialysis as per the renal service. Anemia possibly r/t to renal disease: post transfusion. Minimally elevated troponin at 0.06. No acute ischemic EKG changes. no arrhythmias. Suspect demand mediated. No chest pain Acute CHF. Improved with hemodialysis. Echo pending. HTN: controlled DYLAN PAULINO APRN Apr 23, 2020 17:02 MATILDA CORTES MD Apr 23, 2020 18:20
[2020-04-23] MEDS ORDERED: LABETALOL 20 MG/4 ML DISP.SYRIN. IVP PRN (17:15)
--- NOTE | 2020-04-23 17:19 | CARD ---
MR#: [id number] Date of Study: 04/23/2020 Ordering Physician: MATILDA VICENTE, Referring Physician: MATILDA VICENTE, Tech: Trini Goodson [facility] APPROVED REPORT EXAM: Two-dimensional and M-mode echocardiogram with Doppler and color Doppler. Other Information Quality : AverageHR: 99bpm Rhythm : NSR INDICATION LV Function:SystolicDiastolic RISK FACTORS Hypertension Diabetes 2D DIMENSIONS RVDd4.2 (2.9-3.5cm)Left Atrium(2D)5.5 (1.6-4.0cm) IVSd1.4 (0.7-1.1cm)Aortic Root(2D)3.2 (2.0-3.7cm) LVDd5.1 (3.9-5.9cm)LVOT Diameter1.9 (1.8-2.4cm) PWd1.4 (0.7-1.1cm)LVDs4.6 (2.5-4.0cm) FS (%) 8.9 %SV24.0 ml Aortic Valve AoV Peak Cabrera.215.5cm/sAoV VTI40.4cm AO Peak GR.18.6mmHgLVOT Peak Cabrera.87.2cm/s AO Mean GR.10mmHgAVA (VMAX)1.20cm2 Tricuspid Valve TR P. Micbuhyo610db/sTR Peak Gr.64mmHg LEFT VENTRICLE The Left Ventricle is mildly dilated. There is mild concentric left ventricular hypertrophy. The ejec tion fraction is severely impaired. Estimated ejection fraction 20-25%. There is global hypokinesis of the left ventricle. Transmitral Doppler flow pattern is Grade II-pseudonormal filling dynamics. Ti ssue Doppler imaging reveals moderate left ventricular diastolic dysfunction. No left ventricle throm bus noted on this study. RIGHT VENTRICLE The right ventricle is normal size. There is normal right ventricular wall thickness. The right ventr icular systolic function is normal. ATRIA The left atrium is moderately dilated. The right atrium size is normal. The interatrial septum is int act with no evidence for an atrial septal defect or patent foramen ovale as noted on 2-D or Doppler i maging. AORTIC VALVE The aortic valve is normal in structure and function. Doppler and Color Flow revealed no significant aortic regurgitation. There is no significant aortic valvular stenosis. MITRAL VALVE The mitral valve is normal in structure and function. There is no evidence of mitral valve prolapse. There is no mitral valve stenosis. Doppler and Color-flow revealed moderate to moderately severe mitr al regurgitation. TRICUSPID VALVE The tricuspid valve is normal in structure and function. Doppler and Color Flow revealed mild tricusp id regurgitation. Estimated PAP >60 mmHg. There is no tricuspid valve stenosis. PULMONIC VALVE The pulmonary valve is normal in structure and function. Doppler and Color Flow revealed trace pulmon ic valvular regurgitation. GREAT VESSELS The aortic root is normal in size. The ascending aorta is normal in size. The IVC is dilated and diana apses <50% with inspiration. PERICARDIAL EFFUSION There is no evidence of significant pericardial effusion. Critical Notification Critical Value: No <Conclusion> The Left Ventricle is mildly dilated. The ejection fraction is severely impaired. Estimated ejection fraction 20-25%. There is global hypokinesis of the left ventricle. There is mild concentric left ventricular hypertrophy. Doppler and Color Flow revealed no significant aortic regurgitation. There is no significant aortic valvular stenosis. Doppler and Color-flow revealed moderate to moderately severe mitral regurgitation. Doppler and Color Flow revealed mild tricuspid regurgitation. Estimated PAP >60 mmHg. Signed by : Matilda Vicente MD Electronically Approved : 04/23/2020 17:19:39
[2020-04-23 17:35] LABS: CHOLESTEROL/HDL RATIO 3.3
[2020-04-23 19:00] VITALS: BP 136/75
--- NOTE | 2020-04-23 19:31 | RAD ---
XR CHEST 1V Clinical History: Reason: PNEUMONIA 519 / Spl. Instructions: / History: Technique: AP view of the chest was obtained at 04/23/2020 7:19 PM. Comparison: April 20, 2020. Findings: The cardiomediastinal silhouette is normal. The pulmonary vasculature is normal. There has been inter adrien placement of a right jugular dual-lumen catheter with its tip directed downward in the low SVC. There is patchy opacities in the right lung base. Impression: 1. New right-sided infiltrate could be pneumonia. 2. Right jugular dual-lumen catheter well-positioned. No pneumothorax. Electronically signed by: Rajeev Roman III, MD (04/23/2020 7:29 PM) [facility]
[2020-04-23 23:02] VITALS: BP 121/72
[2020-04-24 03:00] VITALS: BP 124/80
[2020-04-24 07:00] VITALS: BP 130/77
[2020-04-24 07:16] LABS: HEMATOCRIT 24.2 % (39.0-53.0); RED BLOOD COUNT 2.63 x10^6/uL (4.30-5.70); RED CELL DISTRIBUTION WIDTH 15.3 % (11.5-14.5)
[2020-04-24 07:46] LABS: ALBUMIN 2.7 g/dL (3.4-5.0); CALCIUM 6.5 mg/dL (8.5-10.1); CREATININE 5.9 mg/dL (0.7-1.3); GFR 9.6; PHOSPHORUS 5.5 mg/dL (2.6-4.7)
[2020-04-24] MEDS: SEVELAMER CARBONATE 800 MG TABLET. PO SCH ×3 (08:00→17:04)
--- NOTE | 2020-04-24 08:21 | PDOC ---
PROGRESS NOTES Date of Service: DATE: 04/24/20 TIME: 08:21 Chief Complaint Chief Complaint IMPRESSION Acute renal failure Hyperkalemia Hypocalcemia, renal to dialyze Transaminitis Jaundice Elevated BNP Elevated troponins Plan: nephrology for acute renal failure; initiated on hemodialysis consult gi PNEUMONIA Patient received calcium gluconate and sodium bicarb. Placed on bicarb drip. Consult to cardiology for elevated troponins, will continue to trend. Will consult GI for transaminitis and jaundice. Chest x-ray on admission shows patchy interstitial opacities, could be secondary to vascular congestion or infiltrates. Afebrile, nontoxic-appearing. Will alfredito at empirically with renally dosed cefepime 1 g every 24 for possible community- acquired pneumonia. Unintentional weight loss of constitutional symptoms consistent with malignancy, but no clear source or etiology identified at this time. FEN - regular diet PPX - Heparin Sono with fatty liver. likely source of elevated LFT's. FULL CODE Dispo - inpatient for above Patient is a surrogate decision-maker as Brian Meade (family friend). Phone number: [phone] 2 8 min pt exam, chart review, > 50% of time spent with exam, chart review, pt care coordination History of Present Illness History of Present Illness Patient 69-year-old male no stated past medical history who resents to the ER with complaint of generalized weakness for the past 3 months. Over this time patient notes associated 40 pound unintentional weight loss, and constitutional symptoms of night sweats and intermittent nocturnal fevers. He lives alone and presents to the ED at the behest of his family friend, who has been urging patient to be seen by a doctor for the past several months. Upon evaluation in the ER he is noted to be jaundice with icteric sclera. He states he has not urinated today, and upon evaluation in the ER he was noted to be in renal failur e. Patient is alert and oriented to self and place. He really does not have any complaints except for admitted weakness, and he requires much prodding to obtain information. Will admit patient for further medical management. 04/21: Patient without complaints today. Hemoglobin 6.7, potassium improved. Ordered 2 units pRBC. Due to presenting symptoms of weakness and intermittent fevers. Will swab patient for COVID-19. He may transfer 6th floor. Denies fever or nausea. 1- renal fx worse, starting dialysis 04-22, recent 40 lb weight lossSono c/w fatty liver. likely source of elevated LFT's. needs RENAL BIOPSY JOSE ALBERTO NON CA BINDERS Vitals Vitals Vital Signs Date Time Temp Pulse Resp B/P (MAP) Pulse Ox O2 Delivery O2 Flow Rate FiO2 04/24/20 07:00 97.9 87 18 130/77 (94) 97 Nasal Cannula 97.9 Physical Exam General: Alert, Oriented X3, Cooperative, No acute distress, mild distress Heart: Regular rate, Normal S1, Normal S2 Lungs: Clear Abdomen: Normal bowel sounds, Soft Extremities: No clubbing Skin: No breakdown Labs LABS Laboratory Tests Test 04/23/20 12:18 04/24/20 00:21 04/24/20 06:35 Glucose (Fingerstick) 75 mg/dL (70-99) 128 mg/dL (70-99) White Blood Count 4.0 x10^3/uL (4.0-11.0) Red Blood Count 2.63 x10^6/uL (4.30-5.70) Hemoglobin 8.0 g/dL (13.0-17.5) Hematocrit 24.2 % (39.0-53.0) Mean Corpuscular Volume 92 fL (79-100) Mean Corpuscular Hemoglobin 30 pg (25-35) Mean Corpuscular Hemoglobin Concent 33 g/dL (31-37) Red Cell Distribution Width 15.3 % (11.5-14.5) Platelet Count 98 x10^3/uL (140-400) Sodium Level 143 mmol/L (136-145) Potassium Level 4.0 mmol/L (3.5-5.1) Chloride Level 105 mmol/L (98-107) Carbon Dioxide Level 27 mmol/L (21-32) Anion Gap 11 (6-14) Blood Urea Nitrogen 54 mg/dL (8-26) Creatinine 5.9 mg/dL (0.7-1.3) Estimated GFR (Cockcroft-Gault) 9.6 Glucose Level 79 mg/dL (70-99) Calcium Level 6.5 mg/dL (8.5-10.1) Phosphorus Level 5.5 mg/dL (2.6-4.7) Magnesium Level 2.0 mg/dL (1.8-2.4) Albumin 2.7 g/dL (3.4-5.0) Assessment and Plan Assessmemt and Plan Problems Medical Problems: (1) Elevated troponin Status: Acute (2) PNA (pneumonia) Status: Acute Comment Review of Relevant I have reviewed the following items amee (where applicable) has been applied. Labs Laboratory Tests Test 04/22/20 10:37 04/23/20 00:49 04/23/20 06:40 04/23/20 07:15 SARS-CoV-2 Antigen (Rapid) Negative (NEGATIVE) Glucose (Fingerstick) 103 mg/dL (70-99) 97 mg/dL (70-99) White Blood Count 3.9 x10^3/uL (4.0-11.0) Red Blood Count 2.54 x10^6/uL (4.30-5.70) Hemoglobin 7.6 g/dL (13.0-17.5) Hematocrit 23.2 % (39.0-53.0) Mean Corpuscular Volume 91 fL (79-100) Mean Corpuscular Hemoglobin 30 pg (25-35) Mean Corpuscular Hemoglobin Concent 33 g/dL (31-37) Red Cell Distribution Width 15.3 % (11.5-14.5) Platelet Count 94 x10^3/uL (140-400) Sodium Level 145 mmol/L (136-145) Potassium Level 4.3 mmol/L (3.5-5.1) Chloride Level 106 mmol/L (98-107) Carbon Dioxide Level 23 mmol/L (21-32) Anion Gap 16 (6-14) Blood Urea Nitrogen 113 mg/dL (8-26) Creatinine 9.2 mg/dL (0.7-1.3) Estimated GFR (Cockcroft-Gault) 5.7 Glucose Level 90 mg/dL (70-99) Calcium Level 6.1 mg/dL (8.5-10.1) Phosphorus Level 7.4 mg/dL (2.6-4.7) Iron Level 30 ug/dL (65-175) Total Iron Binding Capacity 137 ug/dL (250-450) Iron Saturation 22 % (15-34) Total Bilirubin 0.4 mg/dL (0.2-1.0) Direct Bilirubin 0.1 mg/dL (0.0-0.2) Aspartate Amino Transf (AST/SGOT) 27 U/L (15-37) Alanine Aminotransferase (ALT/SGPT) 72 U/L (16-63) Alkaline Phosphatase 131 U/L (46-116) Total Protein 5.4 g/dL (6.4-8.2) Albumin 2.8 g/dL (3.4-5.0) Triglycerides Level 84 mg/dL (0-150) Cholesterol Level 127 mg/dL (0-200) LDL Cholesterol, Calculated 71 mg/dL (0-100) VLDL Cholesterol, Calculated 17 mg/dL (0-40) Non-HDL Cholesterol Calculated 88 mg/dL (0-129) HDL Cholesterol 39 mg/dL (40-60) Cholesterol/HDL Ratio 3.3 Thyroid Stimulating Hormone (TSH) 2.451 uIU/mL (0.358-3.74) Test 04/23/20 07:45 04/23/20 12:18 04/24/20 00:21 04/24/20 06:35 Magnesium Level 1.6 mg/dL (1.8-2.4) 2.0 mg/dL (1.8-2.4) Glucose (Fingerstick) 75 mg/dL (70-99) 128 mg/dL (70-99) White Blood Count 4.0 x10^3/uL (4.0-11.0) Red Blood Count 2.63 x10^6/uL (4.30-5.70) Hemoglobin 8.0 g/dL (13.0-17.5) Hematocrit 24.2 % (39.0-53.0) Mean Corpuscular Volume 92 fL (79-100) Mean Corpuscular Hemoglobin 30 pg (25-35) Mean Corpuscular Hemoglobin Concent 33 g/dL (31-37) Red Cell Distribution Width 15.3 % (11.5-14.5) Platelet Count 98 x10^3/uL (140-400) Sodium Level 143 mmol/L (136-145) Potassium Level 4.0 mmol/L (3.5-5.1) Chloride Level 105 mmol/L (98-107) Carbon Dioxide Level 27 mmol/L (21-32) Anion Gap 11 (6-14) Blood Urea Nitrogen 54 mg/dL (8-26) Creatinine 5.9 mg/dL (0.7-1.3) Estimated GFR (Cockcroft-Gault) 9.6 Glucose Level 79 mg/dL (70-99) Calcium Level 6.5 mg/dL (8.5-10.1) Phosphorus Level 5.5 mg/dL (2.6-4.7) Albumin 2.7 g/dL (3.4-5.0) Laboratory Tests Test 04/23/20 12:18 04/24/20 00:21 04/24/20 06:35 Glucose (Fingerstick) 75 mg/dL (70-99) 128 mg/dL (70-99) White Blood Count 4.0 x10^3/uL (4.0-11.0) Red Blood Count 2.63 x10^6/uL (4.30-5.70) Hemoglobin 8.0 g/dL (13.0-17.5) Hematocrit 24.2 % (39.0-53.0) Mean Corpuscular Volume 92 fL (79-100) Mean Corpuscular Hemoglobin 30 pg (25-35) Mean Corpuscular Hemoglobin Concent 33 g/dL (31-37) Red Cell Distribution Width 15.3 % (11.5-14.5) Platelet Count 98 x10^3/uL (140-400) Sodium Level 143 mmol/L (136-145) Potassium Level 4.0 mmol/L (3.5-5.1) Chloride Level 105 mmol/L (98-107) Carbon Dioxide Level 27 mmol/L (21-32) Anion Gap 11 (6-14) Blood Urea Nitrogen 54 mg/dL (8-26) Creatinine 5.9 mg/dL (0.7-1.3) Estimated GFR (Cockcroft-Gault) 9.6 Glucose Level 79 mg/dL (70-99) Calcium Level 6.5 mg/dL (8.5-10.1) Phosphorus Level 5.5 mg/dL (2.6-4.7) Magnesium Level 2.0 mg/dL (1.8-2.4) Albumin 2.7 g/dL (3.4-5.0) Microbiology 04/22/20 Urine Culture - Final, Complete 04/22/20 Antimicrobic Susceptibility - Final, Complete Medications Current Medications Ceftriaxone Sodium (Rocephin) 1 gm 1X ONCE IVP Last administered on 04/20/20at 17:42; Start 04/20/20 at 16:15; Stop 04/20/20 at 16:17; Status DC Azithromycin 250 ml @ 250 mls/hr 1X ONCE IV Last administered on 04/20/20at 17:45; Start 04/20/20 at 16:15; Stop 04/20/20 at 17:14; Status DC Aspirin (Aspirin Chewable) 324 mg 1X ONCE PO Last administered on 04/20/20at 17:48; Start 04/20/20 at 16:15; Stop 04/20/20 at 16:17; Status DC Calcium Gluconate (Calcium Gluconate) 1,000 mg 1X ONCE IVP Last administered on 04/20/20at 17:34; Start 04/20/20 at 16:45; Stop 04/20/20 at 16:46; Status DC Sodium Bicarbonate (Sodium Bicarb Adult 8.4% Syr) 50 meq 1X ONCE IV Last administered on 04/20/20at 17:32; Start 04/20/20 at 16:45; Stop 04/20/20 at 16:46; Status DC Sodium Bicarbonate 150 meq/Sterile Water 1,150 ml @ 125 mls/hr Q9H12M IV Last administered on 04/20/20at 19:43; Start 04/20/20 at 19:00; Stop 04/21/20 at 02:59; Status DC Magnesium Sulfate 50 ml @ 25 mls/hr PRN DAILY PRN IV for Mag < 1.7 on am labs; Start 04/20/20 at 18:45 Calcium Gluconate (Calcium Gluconate) 1,000 mg Q3H IVP Last administered on 04/21/20at 00:37; Start 04/20/20 at 19:00; Stop 04/21/20 at 01:01; Status DC Sodium Polystyrene Sulfonate (Kayexalate) 45 gm 1X ONCE PO Last administered on 04/20/20at 20:16; Start 04/20/20 at 19:00; Stop 04/20/20 at 19:01; Status DC Ondansetron HCl (Zofran) 4 mg PRN Q6HRS PRN IVP NAUSEA/VOMITING Last administered on 04/23/20at 11:58; Start 04/20/20 at 19:45 Al Hydroxide/Mg Hydroxide (Mylanta Plus Xs) 30 ml PRN Q3HRS PRN PO HEARTBURN / GAS; Start 04/20/20 at 19:45 Calcium Carbonate/ Glycine (Tums) 500 mg PRN Q3HRS PRN PO UPSET STOMACH; Start 04/20/20 at 19:45 Magnesium Hydroxide (Milk Of Magnesia) 2,400 mg PRN Q12HR PRN PO CONSTIPATION; Start 04/20/20 at 19:45 Bisacodyl (Dulcolax Supp) 10 mg PRN DAILY PRN MT CONSTIPATION; Start 04/20/20 at 19:45 Heparin Sodium (Porcine) (Heparin Sodium) 5,000 unit Q8HRS SQ Last administered on 04/22/20at 05:47; Start 04/20/20 at 22:00; Stop 04/22/20 at 19:34; Status DC Calcium Gluconate (Calcium Gluconate) 1,000 mg 1X ONCE IVP Last administered on 04/21/20at 04:14; Start 04/21/20 at 04:15; Stop 04/21/20 at 04:16; Status DC Calcium Carbonate/ Glycine (Tums) 2,000 mg TIDAC PO Last administered on 04/21/20at 17:43; Start 04/21/20 at 11:30; Stop 04/22/20 at 13:19; Status DC Sodium Polystyrene Sulfonate (Kayexalate) 15 gm 1X ONCE PO Last administered on 04/21/20at 10:59; Start 04/21/20 at 08:45; Stop 04/21/20 at 08:49; Status DC Sodium Chloride 1,000 ml @ 1,000 mls/hr Q1H PRN IV hypotension; Start 04/22/20 at 12:30; Stop 04/22/20 at 18:29; Status DC Albumin Human 200 ml @ 200 mls/hr 1X PRN PRN IV Hypotension; Start 04/22/20 at 12:30; Stop 04/22/20 at 18:29; Status DC Sodium Chloride 1,000 ml @ 400 mls/hr Q2H30M PRN IV PATENCY; Start 04/22/20 at 12:30; Stop 04/23/20 at 00:29; Status DC Info (PHARMACY MONITORING -- do not chart) 1 each PRN DAILY PRN MC SEE COMMENTS; Start 04/22/20 at 12:30; Stop 04/23/20 at 07:20; Status DC Midazolam HCl (Versed) 2 mg STK-MED ONCE .ROUTE ; Start 04/22/20 at 12:53; Stop 04/22/20 at 12:54; Status DC Fentanyl Citrate (Fentanyl 2ml Vial) 100 mcg STK-MED ONCE .ROUTE ; Start 04/22/20 at 12:54; Stop 04/22/20 at 12:54; Status DC Cefazolin Sodium (Ancef) 1 gm STK-MED ONCE IVP ; Start 04/22/20 at 12:59; Stop 04/22/20 at 12:59; Status DC Lidocaine/ Epinephrine (LIDOCAINE 2%-EPI 1:100,000 multi-dose) 20 ml STK-MED ONCE .ROUTE ; Start 04/22/20 at 13:00; Stop 04/22/20 at 13:00; Status DC Sevelamer Carbonate (Renvela) 800 mg TIDWMEALS PO Last administered on 04/23/20at 17:00; Start 04/22/20 at 17:00 Darbepoetin Jimy (ARANESP for DIALYSIS PTS) 60 mcg WEEKLYHS SQ Last administered on 04/22/20at 23:16; Start 04/22/20 at 21:00 Midazolam HCl (Versed) 2 mg 1X ONCE IV Last administered on 04/22/20at 14:05; Start 04/22/20 at 14:00; Stop 04/22/20 at 14:01; Status DC Fentanyl Citrate (Fentanyl 2ml Vial) 100 mcg 1X ONCE IV Last administered on 04/22/20at 14:05; Start 04/22/20 at 14:00; Stop 04/22/20 at 14:01; Status DC Lidocaine/ Epinephrine (LIDOCAINE 2%-EPI 1:100,000 multi-dose) 20 ml 1X ONCE IJ Last administered on 04/22/20at 14:04; Start 04/22/20 at 14:00; Stop 04/22/20 at 14:01; Status DC Cefazolin Sodium (Ancef) 1 gm 1X ONCE IVP Last administered on 04/22/20at 14:03; Start 04/22/20 at 14:00; Stop 04/22/20 at 14:01; Status DC Sodium Chloride 1,000 ml @ 1,000 mls/hr Q1H PRN IV hypotension; Start 04/23/20 at 07:15; Stop 04/23/20 at 13:14; Status DC Albumin Human 200 ml @ 200 mls/hr 1X PRN PRN IV Hypotension; Start 04/23/20 at 07:15; Stop 04/23/20 at 13:14; Status DC Sodium Chloride 1,000 ml @ 400 mls/hr Q2H30M PRN IV PATENCY; Start 04/23/20 at 07:15; Stop 04/23/20 at 19:14; Status DC Info (PHARMACY MONITORING -- do not chart) 1 each PRN DAILY PRN MC SEE COMMENTS; Start 04/23/20 at 07:15; Stop 04/23/20 at 07:19; Status DC Info (PHARMACY MONITORING -- do not chart) 1 each PRN DAILY PRN MC SEE COMMENTS; Start 04/23/20 at 07:15 Magnesium Sulfate 50 ml @ 25 mls/hr 1X ONCE IV Last administered on 04/23/20at 13:17; Start 04/23/20 at 13:00; Stop 04/23/20 at 14:59; Status DC Iron Sucrose 200 mg/Sodium Chloride 110 ml @ 55 mls/hr 1X ONCE IV Last administered on 04/23/20at 15:13; Start 04/23/20 at 14:00; Stop 04/23/20 at 15:59; Status DC Labetalol HCl (Normodyne Iv Push) 20 mg PRN Q2HR PRN IVP HYPERTENSION; Start 04/23/20 at 17:15 Carvedilol (Coreg) 3.125 mg BIDWMEALS PO ; Start 04/24/20 at 09:00 Vitals/I & O Vital Sign - Last 24 Hours 04/23/20 04/23/20 04/23/20 04/23/20 14:59 19:00 20:00 23:02 Temp 98.7 99.1 98.1 98.7 99.1 98.1 Pulse 93 95 93 Resp 18 21 B/P (MAP) 149/74 (99) 136/75 (95) 121/72 (88) Pulse Ox 98 99 96 O2 Delivery Room Air Room Air Room Air Nasal Cannula 04/24/20 04/24/20 03:00 07:00 Temp 98.7 97.9 98.7 97.9 Pulse 95 87 Resp 20 18 B/P (MAP) 124/80 (95) 130/77 (94) Pulse Ox 98 97 O2 Delivery Nasal Cannula Intake and Output 04/23/20 04/23/20 04/24/20 15:00 23:00 07:00 Intake Total 240 ml 0 ml Output Total 0 ml 0 ml Balance 240 ml 0 ml Nutrition Consultation Dietary Evaluation: Recommendations by RD: Dietary education by RD, Increase Calorie Intake, Protein supplementation Comments: Renal diet with nepro oral nutrition supplements Expected Outcomes/Goals: improved po intake, improved renal labs with HD Interpretation of weight loss: >7.5% in 3 months Malnutrition Findings: Food and Nutrition Intake (Sev: <50% est energy req 5days Body Fat Depletion (Non Severe: Mild Depletion Weight Status: Appropriate Justicifation of Admission Dx: Justifications for Admission: Justification of Admission Dx: Yes Acute Renal Failure: RF Can't Be Managed Outpt MACK MAR MD Apr 24, 2020 08:21
[2020-04-24] MEDS ORDERED: DIALYSIS PATIENT. MC PRN ×2 (08:45)
[2020-04-24] MEDS ORDERED: IV NORMAL SALINE 1000ML BAG 1,000 ML IV PRN ×2 (08:45)
[2020-04-24] MEDS ORDERED: ALBUMIN HUMAN 25% 200 ML IV PRN (08:45)
[2020-04-24] MEDS ORDERED: 0.9 % SODIUM CHLORIDE 10 ML DISP.SYRIN. IV PRN ×2 (08:45)
[2020-04-24] MEDS: CARVEDILOL 3.125 MG TABLET. PO SCH ×2 (09:00→17:06)
--- NOTE | 2020-04-24 09:35 | PDOC ---
Date of Service: DATE: 04/24/20 TIME: 09:32 Subjective: Subjective: No GI complaints, thinks he has dialysis again today. Objective: Vital Signs: Vital Signs Date Time Temp Pulse Resp B/P (MAP) Pulse Ox O2 Delivery O2 Flow Rate FiO2 04/24/20 07:00 97.9 87 18 130/77 (94) 97 Nasal Cannula 97.9 Labs: Laboratory Tests Test 04/23/20 12:18 04/24/20 00:21 04/24/20 06:35 Glucose (Fingerstick) 75 mg/dL 128 mg/dL White Blood Count 4.0 x10^3/uL Red Blood Count 2.63 x10^6/uL Hemoglobin 8.0 g/dL Hematocrit 24.2 % Mean Corpuscular Volume 92 fL Mean Corpuscular Hemoglobin 30 pg Mean Corpuscular Hemoglobin Concent 33 g/dL Red Cell Distribution Width 15.3 % Platelet Count 98 x10^3/uL Sodium Level 143 mmol/L Potassium Level 4.0 mmol/L Chloride Level 105 mmol/L Carbon Dioxide Level 27 mmol/L Anion Gap 11 Blood Urea Nitrogen 54 mg/dL Creatinine 5.9 mg/dL Estimated GFR (Cockcroft-Gault) 9.6 Glucose Level 79 mg/dL Calcium Level 6.5 mg/dL Phosphorus Level 5.5 mg/dL Magnesium Level 2.0 mg/dL Albumin 2.7 g/dL URINE CULTURE Final Final 50,000 CFU/ML GRAM POSITIVE COCCI on 04/23/20 at 1014 FINAL ID= [[email or web address]] Imaging: CXR 04/23 Impression: 1. New right-sided infiltrate could be pneumonia. 2. Right jugular dual-lumen catheter well-positioned. No pneumothorax. Echocardiogram 04/23 <Conclusion> The Left Ventricle is mildly dilated. The ejection fraction is severely impaired. Estimated ejection fraction 20-25%. There is global hypokinesis of the left ventricle. There is mild concentric left ventricular hypertrophy. Doppler and Color Flow revealed no significant aortic regurgitation. There is no significant aortic valvular stenosis. Doppler and Color-flow revealed moderate to moderately severe mitral regurgitation. Doppler and Color Flow revealed mild tricuspid regurgitation. Estimated PAP >60 mmHg. PE: GEN: NAD LUNGS: CTAB HEART: RRR ABD: NABS, S/ND/NT NEURO/PSYCH: A & O 3 A/P: Renal failure, weight loss ACD, thrombocytopenia - stable, followed by heme/onc - received IV iron Elevated LFTs - improved COVID negative 04/20 -- Stable/improved from GI standpoint. Justicifation of Admission Dx: Justifications for Admission: Justification of Admission Dx: Yes Acute Renal Failure: RF Can't Be Managed Outpt PORFIRIO WHITE Apr 24, 2020 09:35
--- NOTE | 2020-04-24 12:27 | PDOC ---
CARDIO Progress Notes Date and Time Date of Service 04/24/2020 Time of Evaluation 1200 Subjective Subjective: No Chest Pain, No shortness of breath, No Palpitations Vitals Vitals Vital Signs Date Time Temp Pulse Resp B/P (MAP) Pulse Ox O2 Delivery O2 Flow Rate FiO2 04/24/20 08:00 Room Air 04/24/20 07:00 97.9 87 18 130/77 (94) 97 97.9 Weight Weight [ ] Input and Output Intake and Output Intake and Output 04/24/20 07:00 Intake Total 240 ml Output Total 0 ml Balance 240 ml Intake Oral 240 ml Output Urine Total 0 ml # Voids 3 Laboratory Labs Laboratory Tests Test 04/24/20 00:21 04/24/20 06:35 Glucose (Fingerstick) 128 mg/dL (70-99) White Blood Count 4.0 x10^3/uL (4.0-11.0) Red Blood Count 2.63 x10^6/uL (4.30-5.70) Hemoglobin 8.0 g/dL (13.0-17.5) Hematocrit 24.2 % (39.0-53.0) Mean Corpuscular Volume 92 fL (79-100) Mean Corpuscular Hemoglobin 30 pg (25-35) Mean Corpuscular Hemoglobin Concent 33 g/dL (31-37) Red Cell Distribution Width 15.3 % (11.5-14.5) Platelet Count 98 x10^3/uL (140-400) Sodium Level 143 mmol/L (136-145) Potassium Level 4.0 mmol/L (3.5-5.1) Chloride Level 105 mmol/L (98-107) Carbon Dioxide Level 27 mmol/L (21-32) Anion Gap 11 (6-14) Blood Urea Nitrogen 54 mg/dL (8-26) Creatinine 5.9 mg/dL (0.7-1.3) Estimated GFR (Cockcroft-Gault) 9.6 Glucose Level 79 mg/dL (70-99) Calcium Level 6.5 mg/dL (8.5-10.1) Phosphorus Level 5.5 mg/dL (2.6-4.7) Magnesium Level 2.0 mg/dL (1.8-2.4) Albumin 2.7 g/dL (3.4-5.0) Hepatitis B Surface Antibody Nonreactive Microbiology Micro Microbiology 1/25/21 Urine Culture - Final, Complete 04/22/20 Antimicrobic Susceptibility - Final, Complete Review of Systems Constitutional: yes: alert Ears/Nose/Throat: Yes: no symptom reported Eyes: Yes: no symptom reported Pulmonary: Yes no symptom reported Cardiovascular: Yes no symptom reported Gastrointestional: Yes: nausea, other (WT LOSS) Genitourinary: Yes: no symptom reported Musculoskeletal: Yes: no symptom reported Skin: Yes no symptom reported Psychiatric/Neurological: Yes: no symptom reported Endocrine: Yes: no symptom reported Hematologic/Lymphatic: Yes: anemia Physical Exam HEENT: Neck Supple W Full Motion Chest: Symmetric LUNGS: Clear to Auscultation Heart: RRR (SR) Abdomen: Soft N/T Extremities: No Edema, No Calf Tenderness Neurology: alert, oriented, follow commands Assessment Assessment 1. Likely New ESRD: awaiting renal biopsy 2. Anemia possibly r/t to renal disease: post transfusion. Hgb stable at 8 3. Mild transaminitis: better 4. Minimally elevated troponin at 0.06. No acute ischemic EKG changes. no arrhythmias. Suspect demand mediated. No chest pain 5. Acute combined diastolic/systolic CHF: compensated 6. HTN: controlled 7. Moderate to severe MR 8. Thrombocytopenia: PLT 98 9. 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 Start on coreg. HR goal at rest 70. Will also consider bidil pending BP trend per GDMT as he is not able to take ACEi/ARB currently 2. Fluid off loading per HD. 3. Low dose statin 4. Supportive care 5. Will consider for outpt stress test. Follow up in office. Justicifation of Admission Dx: Justifications for Admission: Justification of Admission Dx: Yes Acute Renal Failure: RF Can't Be Managed Outpt DYLAN PAULINO [employer] Apr 24, 2020 12:27
--- NOTE | 2020-04-24 13:36 | PDOC ---
Renal-Progress Notes Subjective Notes Notes NO NEW COMPLAINTS History of Present Illness Hx of present illness STABLE Vitals Vitals Vital Signs Date Time Temp Pulse Resp B/P (MAP) Pulse Ox O2 Delivery O2 Flow Rate FiO2 04/24/20 08:00 Room Air 04/24/20 07:00 97.9 87 18 130/77 (94) 97 97.9 Weight Weight [ ] I.O. Intake and Output Intake and Output 04/24/20 07:00 Intake Total 240 ml Output Total 0 ml Balance 240 ml Intake Oral 240 ml Output Urine Total 0 ml # Voids 3 Labs Labs Laboratory Tests Test 04/24/20 00:21 04/24/20 06:35 Glucose (Fingerstick) 128 mg/dL (70-99) White Blood Count 4.0 x10^3/uL (4.0-11.0) Red Blood Count 2.63 x10^6/uL (4.30-5.70) Hemoglobin 8.0 g/dL (13.0-17.5) Hematocrit 24.2 % (39.0-53.0) Mean Corpuscular Volume 92 fL (79-100) Mean Corpuscular Hemoglobin 30 pg (25-35) Mean Corpuscular Hemoglobin Concent 33 g/dL (31-37) Red Cell Distribution Width 15.3 % (11.5-14.5) Platelet Count 98 x10^3/uL (140-400) Sodium Level 143 mmol/L (136-145) Potassium Level 4.0 mmol/L (3.5-5.1) Chloride Level 105 mmol/L (98-107) Carbon Dioxide Level 27 mmol/L (21-32) Anion Gap 11 (6-14) Blood Urea Nitrogen 54 mg/dL (8-26) Creatinine 5.9 mg/dL (0.7-1.3) Estimated GFR (Cockcroft-Gault) 9.6 Glucose Level 79 mg/dL (70-99) Calcium Level 6.5 mg/dL (8.5-10.1) Phosphorus Level 5.5 mg/dL (2.6-4.7) Magnesium Level 2.0 mg/dL (1.8-2.4) Albumin 2.7 g/dL (3.4-5.0) Hepatitis B Surface Antibody Nonreactive Micro Micro Microbiology 04/22/20 Urine Culture - Final, Complete 04/22/20 Antimicrobic Susceptibility - Final, Complete Review of Systems Constitutional: yes: alert Ears/Nose/Throat: Yes: no symptom reported Eyes: Yes: no symptom reported Pulmonary: Yes no symptom reported Cardiovascular: Yes no symptom reported Gastrointestional: Yes: nausea, other (WT LOSS) Genitourinary: Yes: no symptom reported Musculoskeletal: Yes: no symptom reported Skin: Yes no symptom reported Psychiatric/Neurological: Yes: no symptom reported Endocrine: Yes: no symptom reported Hematologic/Lymphatic: Yes: anemia Physical Exam General Appearance: no apparent distress Skin: warm Respiratory: bilateral CTA Heart: S1S2 Abdomen: soft, bowel sounds present Genitourinary: bladder flat Extremities: pulses present Neurology: alert, oriented, follow commands Assessment Assessment IMP UREMIA ANEMIA OF RENAL FAILURE WT LOSS RENAL FAILURE-ACUTE VS ESRD HTN HX DM II HYPERPHOSPHATEMIA MET ACIDOSIS PANCYTOPENIA LOW MAG PLAN HD AGAIN TODAY NO UF PENDING RENAL BIOPSY CONT ARANESP VENOFER DONE CONT RENVELA ELEVATED K/L CHAINS-PROB DUE TO RENAL FAILURE HAVE ASKED TO SET UP OP HD AT [facility] WILL FOLLOW CHALO ALVAREZ MD Apr 24, 2020 13:36
--- NOTE | 2020-04-24 14:18 | NUR ---
SW following this BPCI patient today. Spoke with RN and reviewed chart. Pt requires new dialysis setup and is requesting [facility] per nephrology. Kristen admissions intake form completed and faxed.
[2020-04-24 15:00] VITALS: BP 119/59
[2020-04-24 19:00] VITALS: BP 128/75
[2020-04-24] MEDS: ATORVASTATIN CALCIUM 10 MG TABLET. PO SCH (21:01)
[2020-04-24 23:00] VITALS: BP 138/81
[2020-04-25] VITALS (29 sets, daily range): BP systolic 64–144; BP diastolic 47–92
[2020-04-25] MEDS: IV NORMAL SALINE 1000ML BAG 1,000 ML IV SCH (02:00)
[2020-04-25 04:10] LABS: HEMOGLOBIN A1C 4.5 % (4.8-5.6)
[2020-04-25] MEDS: SEVELAMER CARBONATE 800 MG TABLET. PO SCH ×3 (08:00→17:00)
[2020-04-25] MEDS ORDERED: GELATIN SPONGE SIZE 12-7MM SPONGE. ONE (08:54)
[2020-04-25] MEDS ORDERED: LIDOCAINE WITH 8.4% SOD BICARB 3 ML DISP.SYRIN. ONE ×2 (08:54→14:03)
--- NOTE | 2020-04-25 09:08 | PDOC ---
PROGRESS NOTES Date of Service: DATE: 04/25/20 TIME: 09:08 Chief Complaint Chief Complaint IMPRESSION Acute renal failure Hyperkalemia Hypocalcemia, renal to dialyze Transaminitis Jaundice Elevated BNP Elevated troponins UTI URINATING CONY BLOOD, IR NOTIFIED 04-25 POST RENAL BX 04-25 Plan: nephrology for acute renal failure; initiated on hemodialysis consult gi PNEUMONIA IV ZOSYN Patient received calcium gluconate and sodium bicarb. Placed on bicarb drip. Consult to cardiology for elevated troponins, will continue to trend. Will consult GI for transaminitis and jaundice. Chest x-ray on admission shows patchy interstitial opacities, could be secondary to vascular congestion or infiltrates. Afebrile, nontoxic-appearing. Will treat empirically with renally dosed ZOSYN possible community-acquired pneumonia./UTI Unintentional weight loss of constitutional symptoms consistent with malignancy, but no clear source or etiology identified at this time. FEN - regular diet PPX - Heparin Sono with fatty liver. likely source of elevated LFT's. FULL CODE Dispo - inpatient for above Patient is a surrogate decision-maker as Brian Meade (family friend). Phone number: [phone] 04-25 PENILE BLEEDING , HYPOTENSIVE, BOLUSED WITH NS TO ICU NOW. PRN PRESSORS 35 MIN CC TIME min pt exam, chart review, > 50% of time spent with exam, chart review, pt care coordination History of Present Illness History of Present Illness Patient 69-year-old male no stated past medical history who resents to the ER with complaint of generalized weakness for the past 3 months. Over this time patient notes associated 40 pound unintentional weight loss, and constitutional symptoms of night sweats and intermittent nocturnal fevers. He lives alone and presents to the ED at the behest of his family friend, who has been urging patient to be seen by a doctor for the past several months. Upon evaluation in the ER he is noted to be jaundice with icteric sclera. He states he has not urinated today, and upon evaluation in the ER he was noted to be in renal failure. Patient is alert and oriented to self and place. He really does not have any complaints except for admitted weakness, and he requires much prodding to obtain information. Will admit patient for further medical management. 04/21: Patient without complaints today. Hemoglobin 6.7, potassium improved. Ordered 2 units pRBC. Due to presenting symptoms of weakness and intermittent fevers. Will swab patient for COVID-19. He may transfer 6th floor. Denies fever or nausea. 04-22 renal fx worse, starting dialysis 04-22, recent 40 lb weight lossSono c/w fatty liver. likely source of elevated LFT's. needs RENAL BIOPSY JOSE ALBERTO NON CA BINDERS Vitals Vitals Vital Signs Date Time Temp Pulse Resp B/P (MAP) Pulse Ox O2 Delivery O2 Flow Rate FiO2 04/25/20 07:00 98.0 84 16 130/78 (95) 99 Room Air 98.0 Physical Exam General: Alert, Oriented X3, Cooperative, No acute distress, mild distress Heart: Regular rate, Normal S1, Normal S2 Lungs: Clear Abdomen: Normal bowel sounds, Soft Extremities: No clubbing Skin: No breakdown Labs LABS Procedure: Tunneled hemodialysis catheter placement 04/23/2020 11:04 AM Clinical Indication: End-stage renal disease Sterility: All elements of maximal sterile barrier technique including the use of a cap, mask, sterile gown, sterile gloves, large sterile sheet, appropriate hand hygiene, and 2% chlorhexidine for cutaneous antisepsis (or acceptable alternative antiseptic per current guidelines) were followed for this procedure. Consent: The procedure was explained in its entirety to the patient or the patients designated corporate representative by a member of the treatment team, including a discussion of the risks, benefits and commonly accepted alternatives to the procedure, as well as the expected consequences of no therapy whatsoever. Discussion of the risks included, but was not limited to, those that are most frequent and those that are rare but possibly severe or life-threatening, as well as the possibility of unforeseen complications. Technique and Findings: Following informed consent, a timeout procedure was performed. The patient was prepped and draped in the usual sterile fashion. Ultrasound interrogation of the right neck revealed patency and compressibility of the right internal jugular vein. A 21-gauge micropuncture was then used to gain access to this vein under ultrasound guidance. A hard copy ultrasound image was recorded. The needle was exchanged over a wire for a 4 Estonian sheath which was used to guide an guidewire into the IVC. The skin over the right anterior chest wall was copiously anesthetized with 1% Lidocaine and a small dermatotomy was made. A 23 cm tipped cuff palindrome tunneled hemodialysis catheter was then tunneled subcutaneously towards the neck dermatotomy and deployed through a large caliber peel-away sheath under fluoroscopic guidance such that the distal tip resided in the mid right atrium. Manual flow rates were assessed and found to be within normal limits. The catheter was then flushed, packed with Heparin, capped, and sutured to the skin. The neck dermatotomy was closed with Dermabond. No immediate complications were identified. Sedation: Conscious sedation was administered for 25 minutes. The patient was monitored by a qualified independent observer throughout the time of sedation. Please refer to the medical record for exact doses of medications utilized to achieve moderate sedation. Fluoroscopy time: 0.5 minutes Dose area product:4 Gycm2 Impression: Tunneled hemodialysis catheter placement as described DICTATED and SIGNED BY: EMELY ROBIN MD DATE: 04/23/20 [id number] Laboratory Tests Test 04/24/20 18:59 04/24/20 23:58 Glucose (Fingerstick) 153 mg/dL (70-99) 112 mg/dL (70-99) Assessment and Plan Assessmemt and Plan Problems Medical Problems: (1) Elevated troponin Status: Acute (2) PNA (pneumonia) Status: Acute Comment Review of Relevant I have reviewed the following items amee (where applicable) has been applied. Labs Laboratory Tests Test 04/23/20 12:18 04/24/20 00:21 04/24/20 06:35 04/24/20 18:59 Glucose (Fingerstick) 75 mg/dL (70-99) 128 mg/dL (70-99) 153 mg/dL (70-99) White Blood Count 4.0 x10^3/uL (4.0-11.0) Red Blood Count 2.63 x10^6/uL (4.30-5.70) Hemoglobin 8.0 g/dL (13.0-17.5) Hematocrit 24.2 % (39.0-53.0) Mean Corpuscular Volume 92 fL (79-100) Mean Corpuscular Hemoglobin 30 pg (25-35) Mean Corpuscular Hemoglobin Concent 33 g/dL (31-37) Red Cell Distribution Width 15.3 % (11.5-14.5) Platelet Count 98 x10^3/uL (140-400) Sodium Level 143 mmol/L (136-145) Potassium Level 4.0 mmol/L (3.5-5.1) Chloride Level 105 mmol/L (98-107) Carbon Dioxide Level 27 mmol/L (21-32) Anion Gap 11 (6-14) Blood Urea Nitrogen 54 mg/dL (8-26) Creatinine 5.9 mg/dL (0.7-1.3) Estimated GFR (Cockcroft-Gault) 9.6 Glucose Level 79 mg/dL (70-99) Hemoglobin A1c 4.5 % (4.8-5.6) Calcium Level 6.5 mg/dL (8.5-10.1) Phosphorus Level 5.5 mg/dL (2.6-4.7) Magnesium Level 2.0 mg/dL (1.8-2.4) Albumin 2.7 g/dL (3.4-5.0) Hepatitis B Surface Antibody Nonreactive Test 04/24/20 23:58 Glucose (Fingerstick) 112 mg/dL (70-99) Laboratory Tests Test 04/24/20 18:59 04/24/20 23:58 Glucose (Fingerstick) 153 mg/dL (70-99) 112 mg/dL (70-99) Microbiology 04/22/20 Urine Culture - Final, Complete 04/22/20 Antimicrobic Susceptibility - Final, Complete Medications Current Medications Ceftriaxone Sodium (Rocephin) 1 gm 1X ONCE IVP Last administered on 04/20/20at 17:42; Start 04/20/20 at 16:15; Stop 04/20/20 at 16:17; Status DC Azithromycin 250 ml @ 250 mls/hr 1X ONCE IV Last administered on 04/20/20at 17:45; Start 04/20/20 at 16:15; Stop 04/20/20 at 17:14; Status DC Aspirin (Aspirin Chewable) 324 mg 1X ONCE PO Last administered on 04/20/20at 17:48; Start 04/20/20 at 16:15; Stop 04/20/20 at 16:17; Status DC Calcium Gluconate (Calcium Gluconate) 1,000 mg 1X ONCE IVP Last administered on 04/20/20at 17:34; Start 04/20/20 at 16:45; Stop 04/20/20 at 16:46; Status DC Sodium Bicarbonate (Sodium Bicarb Adult 8.4% Syr) 50 meq 1X ONCE IV Last administered on 04/20/20at 17:32; Start 04/20/20 at 16:45; Stop 04/20/20 at 16:46; Status DC Sodium Bicarbonate 150 meq/Sterile Water 1,150 ml @ 125 mls/hr Q9H12M IV Last administered on 04/20/20at 19:43; Start 04/20/20 at 19:00; Stop 04/21/20 at 02:59; Status DC Magnesium Sulfate 50 ml @ 25 mls/hr PRN DAILY PRN IV for Mag < 1.7 on am labs; Start 04/20/20 at 18:45 Calcium Gluconate (Calcium Gluconate) 1,000 mg Q3H IVP Last administered on 04/21/20at 00:37; Start 04/20/20 at 19:00; Stop 04/21/20 at 01:01; Status DC Sodium Polystyrene Sulfonate (Kayexalate) 45 gm 1X ONCE PO Last administered on 04/20/20at 20:16; Start 04/20/20 at 19:00; Stop 04/20/20 at 19:01; Status DC Ondansetron HCl (Zofran) 4 mg PRN Q6HRS PRN IVP NAUSEA/VOMITING Last admi nistered on 04/23/20at 11:58; Start 04/20/20 at 19:45 Al Hydroxide/Mg Hydroxide (Mylanta Plus Xs) 30 ml PRN Q3HRS PRN PO HEARTBURN / GAS; Start 04/20/20 at 19:45 Calcium Carbonate/ Glycine (Tums) 500 mg PRN Q3HRS PRN PO UPSET STOMACH; Start 04/20/20 at 19:45 Magnesium Hydroxide (Milk Of Magnesia) 2,400 mg PRN Q12HR PRN PO CONSTIPATION; Start 04/20/20 at 19:45 Bisacodyl (Dulcolax Supp) 10 mg PRN DAILY PRN MA CONSTIPATION; Start 04/20/20 at 19:45 Heparin Sodium (Porcine) (Heparin Sodium) 5,000 unit Q8HRS SQ Last administered on 04/22/20at 05:47; Start 04/20/20 at 22:00; Stop 04/22/20 at 19:34; Status DC Calcium Gluconate (Calcium Gluconate) 1,000 mg 1X ONCE IVP Last administered on 04/21/20at 04:14; Start 04/21/20 at 04:15; Stop 04/21/20 at 04:16; Status DC Calcium Carbonate/ Glycine (Tums) 2,000 mg TIDAC PO Last administered on 04/21/20at 17:43; Start 04/21/20 at 11:30; Stop 04/22/20 at 13:19; Status DC Sodium Polystyrene Sulfonate (Kayexalate) 15 gm 1X ONCE PO Last administered on 04/21/20at 10:59; Start 04/21/20 at 08:45; Stop 04/21/20 at 08:49; Status DC Sodium Chloride 1,000 ml @ 1,000 mls/hr Q1H PRN IV hypotension; Start 04/22/20 at 12:30; Stop 04/22/20 at 18:29; Status DC Albumin Human 200 ml @ 200 mls/hr 1X PRN PRN IV Hypotension; Start 04/22/20 at 12:30; Stop 04/22/20 at 18:29; Status DC Sodium Chloride 1,000 ml @ 400 mls/hr Q2H30M PRN IV PATENCY; Start 04/22/20 at 12:30; Stop 04/23/20 at 00:29; Status DC Info (PHARMACY MONITORING -- do not chart) 1 each PRN DAILY PRN MC SEE COMMENTS; Start 04/22/20 at 12:30; Stop 04/23/20 at 07:20; Status DC Midazolam HCl (Versed) 2 mg STK-MED ONCE .ROUTE ; Start 04/22/20 at 12:53; Stop 04/22/20 at 12:54; Status DC Fentanyl Citrate (Fentanyl 2ml Vial) 100 mcg STK-MED ONCE .ROUTE ; Start 04/22/20 at 12:54; Stop 04/22/20 at 12:54; Status DC Cefazolin Sodium (Ancef) 1 gm STK-MED ONCE IVP ; Start 04/22/20 at 12:59; Stop 04/22/20 at 12:59; Status DC Lidocaine/ Epinephrine (LIDOCAINE 2%-EPI 1:100,000 multi-dose) 20 ml STK-MED ONCE .ROUTE ; Start 04/22/20 at 13:00; Stop 04/22/20 at 13:00; Status DC Sevelamer Carbonate (Renvela) 800 mg TIDWMEALS PO Last administered on 04/24/20at 17:04; Start 04/22/20 at 17:00 Darbepoetin Jimy (ARANESP for DIALYSIS PTS) 60 mcg WEEKLYHS SQ Last administered on 04/22/20at 23:16; Start 04/22/20 at 21:00 Midazolam HCl (Versed) 2 mg 1X ONCE IV Last administered on 04/22/20at 14:05; Start 04/22/20 at 14:00; Stop 04/22/20 at 14:01; Status DC Fentanyl Citrate (Fentanyl 2ml Vial) 100 mcg 1X ONCE IV Last administered on 04/22/20at 14:05; Start 04/22/20 at 14:00; Stop 04/22/20 at 14:01; Status DC Lidocaine/ Epinephrine (LIDOCAINE 2%-EPI 1:100,000 multi-dose) 20 ml 1X ONCE IJ Last administered on 04/22/20at 14:04; Start 04/22/20 at 14:00; Stop 04/22/20 at 14:01; Status DC Cefazolin Sodium (Ancef) 1 gm 1X ONCE IVP Last administered on 04/22/20at 14:03; Start 04/22/20 at 14:00; Stop 04/22/20 at 14:01; Status DC Sodium Chloride 1,000 ml @ 1,000 mls/hr Q1H PRN IV hypotension; Start 04/23/20 at 07:15; Stop 04/23/20 at 13:14; Status DC Albumin Human 200 ml @ 200 mls/hr 1X PRN PRN IV Hypotension; Start 04/23/20 at 07:15; Stop 04/23/20 at 13:14; Status DC Sodium Chloride 1,000 ml @ 400 mls/hr Q2H30M PRN IV PATENCY; Start 04/23/20 at 07:15; Stop 04/23/20 at 19:14; Status DC Info (PHARMACY MONITORING -- do not chart) 1 each PRN DAILY PRN MC SEE COMMENTS; Start 04/23/20 at 07:15; Stop 04/23/20 at 07:19; Status DC Info (PHARMACY MONITORING -- do not chart) 1 each PRN DAILY PRN MC SEE COMMENTS; Start 04/23/20 at 07:15; Stop 04/24/20 at 08:50; Status DC Magnesium Sulfate 50 ml @ 25 mls/hr 1X ONCE IV Last administered on 04/23/20at 13:17; Start 04/23/20 at 13:00; Stop 04/23/20 at 14:59; Status DC Iron Sucrose 200 mg/Sodium Chloride 110 ml @ 55 mls/hr 1X ONCE IV Last administered on 04/23/20at 15:13; Start 04/23/20 at 14:00; Stop 04/23/20 at 15:59; Status DC Labetalol HCl (Normodyne Iv Push) 20 mg PRN Q2HR PRN IVP HYPERTENSION; Start 04/23/20 at 17:15 Carvedilol (Coreg) 3.125 mg BIDWMEALS PO Last administered on 04/24/20at 17:06; Start 04/24/20 at 09:00 Sodium Chloride 1,000 ml @ 1,000 mls/hr Q1H PRN IV hypotension; Start 04/24/20 at 08:45; Stop 04/24/20 at 14:44; Status DC Albumin Human 200 ml @ 200 mls/hr 1X PRN PRN IV Hypotension; Start 04/24/20 at 08:45; Stop 04/24/20 at 14:44; Status DC Sodium Chloride (Normal Saline Flush) 10 ml 1X PRN PRN IV AP catheter pack; Start 04/24/20 at 08:45; Stop 04/25/20 at 08:44; Status DC Sodium Chloride (Normal Saline Flush) 10 ml 1X PRN PRN IV LAYBOY OPERATOR catheter pack; Start 04/24/20 at 08:45; Stop 04/25/20 at 08:44; Status DC Sodium Chloride 1,000 ml @ 400 mls/hr Q2H30M PRN IV PATENCY; Start 04/24/20 at 08:45; Stop 04/24/20 at 20:44; Status DC Info (PHARMACY MONITORING -- do not chart) 1 each PRN DAILY PRN MC SEE COMMENTS; Start 04/24/20 at 08:45; Stop 04/24/20 at 08:51; Status DC Info (PHARMACY MONITORING -- do not chart) 1 each PRN DAILY PRN MC SEE COMMENTS; Start 04/24/20 at 08:45 Atorvastatin Calcium (Lipitor) 10 mg QHS PO Last administered on 04/24/20at 21:01; Start 04/24/20 at 21:00 Lidocaine HCl (Buffered Lidocaine 1%) 3 ml STK-MED ONCE .ROUTE ; Start 04/25/20 at 08:54; Stop 04/25/20 at 08:54; Status DC Gelatin (Gelfoam Size 12-7mm) 1 each STK-MED ONCE .ROUTE ; Start 04/25/20 at 08:54; Stop 04/25/20 at 08:55; Status DC Vitals/I & O Vital Sign - Last 24 Hours 04/24/20 04/24/20 04/24/20 04/24/20 15:00 17:06 19:00 20:00 Temp 97.6 98.8 97.6 98.8 Pulse 93 93 94 Resp 18 18 B/P (MAP) 119/59 (79) 127/71 128/75 (92) Pulse Ox 98 98 O2 Delivery Nasal Cannula Room Air Room Air 04/24/20 04/25/20 04/25/20 23:00 03:00 07:00 Temp 98.1 97.7 98.0 98.1 97.7 98.0 Pulse 93 86 84 Resp 18 18 16 B/P (MAP) 138/81 (100) 137/70 (92) 130/78 (95) Pulse Ox 98 96 99 O2 Delivery Room Air Room Air Room Air Intake and Output 04/24/20 04/24/20 04/25/20 15:00 23:00 07:00 Output Total 0 ml 0 ml Balance 0 ml 0 ml Nutrition Consultation Dietary Evaluation: Recommendations by RD: Dietary education by RD, Increase Calorie Intake, Protein supplementation Comments: Renal diet with nepro oral nutrition supplements Expected Outcomes/Goals: improved po intake, improved renal labs with HD Interpretation of weight loss: >7.5% in 3 months Malnutrition Findings: Food and Nutrition Intake (Sev: <50% est energy req 5days Body Fat Depletion (Non Severe: Mild Depletion Weight Status: Appropriate Justicifation of Admission Dx: Justifications for Admission: Justification of Admission Dx: Yes Acute Renal Failure: RF Can't Be Managed Outpt MACK MAR MD Apr 25, 2020 09:08
[2020-04-25] MEDS ORDERED: MIDAZOLAM HCL/PF 2 MG/2 ML VIAL. ONE ×2 (09:14→14:10)
[2020-04-25] MEDS ORDERED: fentaNYL PF VIAL 100 MCG/2 ML VIAL ONE ×2 (09:14→14:10)
--- NOTE | 2020-04-25 09:49 | PDOC ---
Date of Service: DATE: 04/25/20 TIME: 09:47 Subjective: Subjective: No GI complaints, can't remember what the plan for today is. Objective: Objective: D/w nurse - for renal biopsy today. Vital Signs: Vital Signs Date Time Temp Pulse Resp B/P (MAP) Pulse Ox O2 Delivery O2 Flow Rate FiO2 04/25/20 07:00 98.0 84 16 130/78 (95) 99 Room Air 98.0 Labs: Laboratory Tests Test 04/24/20 18:59 04/24/20 23:58 Glucose (Fingerstick) 153 mg/dL 112 mg/dL PE: GEN: NAD LUNGS: CTAB HEART: RRR ABD: NABS, S/ND/NT NEURO/PSYCH: A & O 3, was asleep w/ head under covers A/P: Renal failure, weight loss ACD, thrombocytopenia Elevated LFTs - improved (checked 04/23) COVID negative 04/20 -- Stable GI-thomas. Justicifation of Admission Dx: Justifications for Admission: Justification of Admission Dx: Yes Acute Renal Failure: RF Can't Be Managed Outpt PORFIRIO WHITE Apr 25, 2020 09:49
[2020-04-25 09:56] LABS: ALBUMIN 2.6 g/dL (3.4-5.0); CALCIUM 7.1 mg/dL (8.5-10.1); CREATININE 4.2 mg/dL (0.7-1.3); GFR 14.2; POTASSIUM 4.4 mmol/L (3.5-5.1)
[2020-04-25] MEDS ORDERED: LIDOCAINE WITH 8.4% SOD BICARB 3 ML DISP.SYRIN. IJ ONE ×2 (10:00→15:45)
[2020-04-25] MEDS ORDERED: fentaNYL PF VIAL 100 MCG/2 ML VIAL IV ONE (10:00)
[2020-04-25] MEDS ORDERED: MIDAZOLAM HCL/PF 2 MG/2 ML VIAL. IV ONE (10:00)
--- NOTE | 2020-04-25 12:08 | PDOC ---
Renal-Progress Notes Subjective Notes Notes NONE History of Present Illness Hx of present illness STABLE Vitals Vitals Vital Signs Date Time Temp Pulse Resp B/P (MAP) Pulse Ox O2 Delivery O2 Flow Rate FiO2 04/25/20 09:57 12 100 2.0 04/25/20 09:50 92 Nasal Cannula 04/25/20 07:00 98.0 130/78 (95) 98.0 Weight Weight [ ] I.O. Intake and Output Intake and Output 04/25/20 07:00 Output Total 0 ml Balance 0 ml Output Urine Total 0 ml Labs Labs Laboratory Tests Test 04/24/20 18:59 04/24/20 23:58 04/25/20 09:00 Glucose (Fingerstick) 153 mg/dL (70-99) 112 mg/dL (70-99) Sodium Level 142 mmol/L (136-145) Potassium Level 4.4 mmol/L (3.5-5.1) Chloride Level 106 mmol/L (98-107) Carbon Dioxide Level 28 mmol/L (21-32) Anion Gap 8 (6-14) Blood Urea Nitrogen 32 mg/dL (8-26) Creatinine 4.2 mg/dL (0.7-1.3) Estimated GFR (Cockcroft-Gault) 14.2 Glucose Level 70 mg/dL (70-99) Calcium Level 7.1 mg/dL (8.5-10.1) Phosphorus Level 4.0 mg/dL (2.6-4.7) Magnesium Level 2.0 mg/dL (1.8-2.4) Albumin 2.6 g/dL (3.4-5.0) Micro Micro Microbiology 04/22/20 Urine Culture - Final, Complete 04/22/20 Antimicrobic Susceptibility - Final, Complete Review of Systems Constitutional: yes: alert Ears/Nose/Throat: Yes: no symptom reported Eyes: Yes: no symptom reported Pulmonary: Yes no symptom reported Cardiovascular: Yes no symptom reported Gastrointestional: Yes: nausea, other (WT LOSS) Genitourinary: Yes: no symptom reported Musculoskeletal: Yes: no symptom reported Skin: Yes no symptom reported Psychiatric/Neurological: Yes: no symptom reported Endocrine: Yes: no symptom reported Hematologic/Lymphatic: Yes: anemia Physical Exam General Appearance: no apparent distress Skin: warm Respiratory: bilateral CTA Heart: S1S2 Abdomen: soft, bowel sounds present Genitourinary: bladder flat Extremities: pulses present Neurology: alert, oriented, follow commands Assessment Assessment IMP UREMIA ANEMIA OF RENAL FAILURE WT LOSS RENAL FAILURE-ACUTE VS ESRD HTN HX DM II HYPERPHOSPHATEMIA MET ACIDOSIS PANCYTOPENIA PLAN DIALYSIS TOMORROW KIDNEY BX TODAY OP HD BEING SET UP CHALO ALVAREZ MD Apr 25, 2020 12:08
[2020-04-25] MEDS: CARVEDILOL 3.125 MG TABLET. PO SCH ×2 (12:09→17:00)
--- NOTE | 2020-04-25 12:16 | RAD ---
INDICATION: Reason: bladder d/t bleeding from penis / Spl. Instructions: / History: COMPARISON: CT from April 20, 2020 FINDINGS: Focused ultrasound was performed through the urinary bladder region. Urinary bladder is filled with heterogenous material measuring up to about 10 cm. The prostate is pro minent in size measuring 65 x 70 x 77 mm IMPRESSION: * Large amount of heterogenous material seen within the urinary bladder. The most likely cause is b lood within the lumen given that this was not seen on prior CT from April 20, 2020. Electronically signed by: Hermann Patton MD (04/25/2020 12:14 PM) [id number]
[2020-04-25 12:20] LABS: CLARITY,URINE BLOODY; COLOR,URINE RED
[2020-04-25 12:21] LABS: BACTERIA,URINE FIELD OBSCURED /HPF (0-FEW); RBC,URINE TNTC /HPF (0-2); WBC,URINE FIELD OBSCURED /HPF (0-4)
[2020-04-25 13:47] LABS: HEMOGLOBIN 8.6 g/dL (13.0-17.5)
[2020-04-25] MEDS ORDERED: IODIXANOL 320 MG/ML 100 ML VIAL. ONE (14:04)
[2020-04-25] MEDS ORDERED: HEPARIN for ARTERIAL LINE 1,500 ML ONE (14:04)
--- NOTE | 2020-04-25 14:52 | PDOC ---
CARDIO Progress Notes Date and Time Date of Service 04/25/2020 Time of Evaluation 1150 Subjective Subjective: No Chest Pain, No shortness of breath, No Palpitations Vitals Vitals Vital Signs Date Time Temp Pulse Resp B/P (MAP) Pulse Ox O2 Delivery O2 Flow Rate FiO2 04/25/20 12:09 92 139/86 04/25/20 10:46 16 99 Room Air 04/25/20 10:13 98.1 98.1 04/25/20 09:57 2.0 Weight Weight [ ] Input and Output Intake and Output Intake and Output 04/25/20 07:00 Output Total 0 ml Balance 0 ml Output Urine Total 0 ml Laboratory Labs Laboratory Tests Test 04/24/20 18:59 04/24/20 23:58 04/25/20 09:00 04/25/20 12:08 Glucose (Fingerstick) 153 mg/dL (70-99) 112 mg/dL (70-99) Sodium Level 142 mmol/L (136-145) Potassium Level 4.4 mmol/L (3.5-5.1) Chloride Level 106 mmol/L (98-107) Carbon Dioxide Level 28 mmol/L (21-32) Anion Gap 8 (6-14) Blood Urea Nitrogen 32 mg/dL (8-26) Creatinine 4.2 mg/dL (0.7-1.3) Estimated GFR (Cockcroft-Gault) 14.2 Glucose Level 70 mg/dL (70-99) Calcium Level 7.1 mg/dL (8.5-10.1) Phosphorus Level 4.0 mg/dL (2.6-4.7) Magnesium Level 2.0 mg/dL (1.8-2.4) Albumin 2.6 g/dL (3.4-5.0) Urine Collection Type Clean catch Urine Color Red Urine Clarity Bloody Urine pH (<5.0-8.0) Urine Specific [place] (1.000-1.030) Urine Protein mg/dL (NEG-TRACE) Urine Glucose (UA) mg/dL (NEG) Urine Ketones (Stick) mg/dL (NEG) Urine Blood (NEG) Urine Nitrite (NEG) Urine Bilirubin (NEG) Urine Urobilinogen Dipstick mg/dL (0.2 mg/dL) Urine Leukocyte Esterase (NEG) Urine RBC Tntc /HPF (0-2) Urine WBC Field obscured /HPF (0-4) Urine Bacteria Field obscured /HPF (0-FEW) Test 04/25/20 12:14 04/25/20 13:22 Glucose (Fingerstick) 96 mg/dL (70-99) Hemoglobin 8.6 g/dL (13.0-17.5) Hematocrit 27.0 % (39.0-53.0) Mean Corpuscular Hemoglobin Concent 32 g/dL (31-37) Microbiology Micro Microbiology 04/22/20 Urine Culture - Final, Complete 04/22/20 Antimicrobic Susceptibility - Final, Complete Review of Systems Constitutional: yes: alert Ears/Nose/Throat: Yes: no symptom reported Eyes: Yes: no symptom reported Pulmonary: Yes no symptom reported Cardiovascular: Yes no symptom reported Gastrointestional: Yes: nausea, other (WT LOSS) Genitourinary: Yes: no symptom reported Musculoskeletal: Yes: no symptom reported Skin: Yes no symptom reported Psychiatric/Neurological: Yes: no symptom reported Endocrine: Yes: no symptom reported Hematologic/Lymphatic: Yes: anemia Physical Exam HEENT: Neck Supple W Full Motion Chest: Symmetric LUNGS: Clear to Auscultation Heart: RRR (SR) Abdomen: Soft N/T Extremities: No Edema, No Calf Tenderness Neurology: alert, oriented, follow commands Assessment Assessment 1. Likely New ESRD: awaiting renal biopsy 2. Anemia possibly r/t to renal disease: post transfusion. Hgb stable at 8 3. Mild transaminitis: better 4. Minimally elevated troponin at 0.06. No acute ischemic EKG changes. no arrhythmias. Suspect demand mediated. No chest pain 5. Acute combined diastolic/systolic CHF: compensated 6. HTN: controlled 7. Moderate to severe MR 8. Thrombocytopenia: PLT 98 9. 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 Start on coreg. HR goal at rest 70. Will also consider bidil pending BP trend per GDMT as he is not able to take ACEi/ARB currently 2. Fluid off loading per HD. 3. Low dose statin. Restart baby ASA after renal biopsy 4. Supportive care 5. Will consider for outpt stress test. Follow up in office. Justicifation of Admission Dx: Justifications for Admission: Justification of Admission Dx: Yes Acute Renal Failure: RF Can't Be Managed Outpt DYLAN PAULINO ARTIST SCIENTIFIC Apr 25, 2020 14:52
[2020-04-25] MEDS ORDERED: 0.9 % SODIUM CHLORIDE 10 ML DISP.SYRIN. IV PRN (15:00)
[2020-04-25] MEDS ORDERED: ONDANSETRON PF 4 MG/2 ML VIAL. IVP PRN (15:00)
[2020-04-25] MEDS ORDERED: ASPIRIN ENTERIC COATED 81 MG TABLET.DR. PO SCH (15:00)
[2020-04-25] MEDS ORDERED: ACETAMINOPHEN 325 MG TABLET. PO PRN (15:00)
[2020-04-25] MEDS ORDERED: IODIXANOL 320 MG/ML 50ML VIAL. ONE (15:26)
--- NOTE | 2020-04-25 15:27 | NUR ---
Patient had Left Renal biopsy done this morning by Dr. Gooden. Patient returned and dressing was clean, dry and intact. Frequent vital signs were started per protocol and site was rechecked frequently for signs of bleeding. Patient then complained to Anthony Enriquez APRN with cardiology that he was bleeding from his penis, and this information was then shared with me. I then passed information to Dr. López when the MILK DRIVER came and told me that patient was peeing blood. An ultrasound of the bladder was then ordered stat and a urine sample was collected and sent to lab. After this I called Dr. Gooden after ultrasound was read and fear of internal bleeding in the kidney was suspected. Dr. Gooden came and viewed patient and then called me and requested a stat HH, type and cross, and 3 way hamm inserted with continuous bladder irrigation started. Just as I had gotten the catheter in place and the irrigation started, a blood pressure was taken by Dr. Gooden and patient's bp was then 78/49, and rechecked similar. Dr. Gooden then requested 2 units of blood ordered stat and a 500ml NS bolus to be given. I asked Dr. Gooden at that time if we could move patient to possibly ICU for closer watch since nurse patient ratio today on unit was 6:1. He agreed and Nursing Wharf Attendant was notified, and as soon as room was given, the MILK DRIVER and this RN moved patient down to ICU. Report was given at bedside.
[2020-04-25] MEDS ORDERED: fentaNYL PF VIAL 100 MCG/2 ML VIAL IVP ONE (15:30)
[2020-04-25] MEDS ORDERED: CONTRAST GIVEN. MC PRN (15:45)
[2020-04-25] MEDS ORDERED: IODIXANOL 320 MG/ML 50ML VIAL. IART ONE (15:45)
[2020-04-25] MEDS ORDERED: IODIXANOL 320 MG/ML 100 ML VIAL. IART ONE (15:45)
[2020-04-25] MEDS ORDERED: IV NORMAL SALINE 1000ML BAG 1,000 ML IV ONE (15:45)
[2020-04-25] MEDS: FAMOTIDINE 20 MG/2 ML VIAL IVP SCH (16:00)
[2020-04-25] MEDS: NOREPINEPHRINE VIAL 8 MG in IV DEXTROSE 5% 250 ML IV PRN ×2 (16:05→21:43)
[2020-04-25] MEDS ORDERED: fentaNYL PF VIAL 100 MCG/2 ML VIAL IVP PRN (16:15)
--- NOTE | 2020-04-25 16:20 | NUR ---
starting Levophed gtt Addendum: 04/25/20 at 1621 by CARL CARBAJAL RN Amended: Links added.
[2020-04-25] MEDS: PIPERACILLIN/TAZOBACTAM 2.25 GM in IV NORMAL SALINE 50ML 50 ML IV SCH ×2 (16:37→22:28)
--- NOTE | 2020-04-25 17:22 | PDOC ---
Provider Note Date of Service: DATE: 04/25/20 TIME: 16:40 Provider Note IR NOTE Patient had gross hematuira following left kidney biopsy today. Ultrasound of the bladder demonstrated a large blood clot in the bladder. CBI initiated. Patient evaluated at bedside. Pulse normal. SBP was initially normal in 130s but then dropped into the 70s, which was reproducible on both arms. STAT HH obtain with increase in Hb from baseline from 8.0 to 8.6. The patient denied flank pain and had moderate discomfort over the bladder. He was taken for stat angiography due to the hypertension and gross hematuria. The left kidney arteriogram was diffusely abnormal with evidence of compression of the kidney. active bleeding was observed from what appeared to be a small vessel supplying the mid and superior kidney. Evaluation was limited by what ap peared to be vasospasm. Coil embolization of apparent feeding artery was performed. No further active bleeding was seen on subseqeuent angios, though overall filling of the distal arterial tree was poor. The patients hemodynamics seemed to improve following this. I then took the patient to the CT scanner to evaluated for subcapsular bleed. A large hematoma is present along with blood in the collecting system. A markedly delayed nephrogram was also present. The patient was transferred back to the ICU . He remains hemodynamcially stable. with moderate bladder discomfort. Should he become unstable or have evidence of rebleeding. Angio could be repeated, if unsuccessful he may need nephrectomy. I discussed with case with the hospitalist, and the bioprocess development engineer. Justifications for Admission Other Justification Acute renal failure, unintentional weight loss, jaundice, transaminitis EMELY ROBIN MD Apr 25, 2020 17:22
[2020-04-25 18:09] LABS: BASO % 0 % (0-3); EOS % 0 % (0-3); LYMPH # 0.5 x10^3/uL (1.0-4.8); LYMPH % 10 % (24-48); MEAN CORPUSCULAR HEMOGLOBIN 30 pg (25-35); MEAN CORPUSCULAR HGB CONC 32 g/dL (31-37); MEAN CORPUSCULAR VOLUME 92 fL (79-100); MONO # 0.4 x10^3/uL (0.0-1.1); MONO % 7 % (0-9); NEUT # 4.2 x10^3/uL (1.8-7.7); NEUT % 83 % (31-73); PLATELET COUNT 101 x10^3/uL (140-400); RED BLOOD COUNT 2.04 x10^6/uL (4.30-5.70); RED CELL DISTRIBUTION WIDTH 15.7 % (11.5-14.5)
[2020-04-25 18:14] LABS: HEMATOCRIT 18.8 % (39.0-53.0); HEMOGLOBIN 6.1 g/dL (13.0-17.5)
[2020-04-25] MEDS: fentaNYL PF VIAL 100 MCG/2 ML VIAL IVP PRN ×3 (18:25→23:18)
--- NOTE | 2020-04-25 18:48 | RAD ---
Chest AP portable at 1738: Reason for examination: Central line placement. Comparison is made to previous study dated 04/23/2020. Double-lumen catheter is present on the right with the tip at the superior vena cava/right atrial doc ction. There is also a smaller catheter is seen superimposed over the double lumen catheter extending to the superior vena cava/right atrial junction. The proximal end of the catheter is not imaged. No pneumothorax is seen. The heart size is normal. There continues to be some mild hazy opacity in the r ight lung base. Inspiratory effort is poor. Left lung field appears be clear. No acute bony abnormali ties are seen. IMPRESSION: Double lumen and small caliber central venous catheter is present with the tips at the superior vena cava/right atrial junction. No pneumothorax. Poor inspiratory effort but continued presence of some mild hazy opacity at the right lung base. Electronically signed by: Beatriz Titus MD (04/25/2020 6:46 PM) JONO
[2020-04-25] MEDS: ATORVASTATIN CALCIUM 10 MG TABLET. PO SCH (21:50)
[2020-04-25 23:33] LABS: HEMATOCRIT 35.6 % (39.0-53.0); HEMOGLOBIN 11.5 g/dL (13.0-17.5); RED BLOOD COUNT 3.91 x10^6/uL (4.30-5.70); RED CELL DISTRIBUTION WIDTH 14.8 % (11.5-14.5)
[2020-04-26] VITALS (20 sets, daily range): BP systolic 82–148; BP diastolic 46–65
[2020-04-26] MEDS: ONDANSETRON PF 4 MG/2 ML VIAL. IVP PRN ×3 (00:09→12:44)
[2020-04-26] MEDS: fentaNYL PF VIAL 100 MCG/2 ML VIAL IVP PRN ×5 (01:32→10:56)
[2020-04-26 02:10] LABS: BASO % 0 % (0-3); EOS % 0 % (0-3); HEMATOCRIT 34.4 % (39.0-53.0); LYMPH # 0.7 x10^3/uL (1.0-4.8); LYMPH % 4 % (24-48); MEAN CORPUSCULAR HEMOGLOBIN 29 pg (25-35); MEAN CORPUSCULAR HGB CONC 32 g/dL (31-37); MEAN CORPUSCULAR VOLUME 91 fL (79-100); MONO # 1.7 x10^3/uL (0.0-1.1); MONO % 11 % (0-9); NEUT # 14.2 x10^3/uL (1.8-7.7); NEUT % 85 % (31-73); PLATELET COUNT 88 x10^3/uL (140-400); RED BLOOD COUNT 3.77 x10^6/uL (4.30-5.70); RED CELL DISTRIBUTION WIDTH 15.7 % (11.5-14.5); WHITE BLOOD COUNT 16.7 x10^3/uL (4.0-11.0)
[2020-04-26 02:22] LABS: PROTHROMBIN TIME PATIENT 18.6 SEC (11.7-14.0)
[2020-04-26 02:24] LABS: ALBUMIN 2.8 g/dL (3.4-5.0); CALCIUM 6.4 mg/dL (8.5-10.1); CREATININE 5.2 mg/dL (0.7-1.3); GFR 11.1; POTASSIUM 5.2 mmol/L (3.5-5.1); TOTAL BILIRUBIN 1.5 mg/dL (0.2-1.0); TOTAL PROTEIN 5.7 g/dL (6.4-8.2)
[2020-04-26] MEDS ORDERED: LIDOCAINE WITH 8.4% SOD BICARB 3 ML DISP.SYRIN. ONE (02:39)
[2020-04-26] MEDS ORDERED: IODIXANOL 320 MG/ML 100 ML VIAL. ONE ×2 (02:39→04:07)
[2020-04-26] MEDS ORDERED: MIDAZOLAM HCL/PF 2 MG/2 ML VIAL. ONE (02:39)
[2020-04-26] MEDS ORDERED: fentaNYL PF VIAL 100 MCG/2 ML VIAL ONE (02:39)
[2020-04-26] MEDS: NOREPINEPHRINE VIAL 8 MG in IV DEXTROSE 5% 250 ML IV PRN (02:48)
[2020-04-26] MEDS: IV NORMAL SALINE 1000ML BAG 1,000 ML IV SCH ×2 (02:53→11:00)
[2020-04-26 02:59] LABS: % BANDS 1 % (0-9); % LYMPHS 8 % (24-48); % MONOS 9 % (0-10); % SEGS 82 % (35-66); ANISOCYTOSIS SLIGHT; HELMET CELLS OCC; NUCLEATED RBC 1; PLT ESTIMATE DECREASED (ADEQUATE); POLYCHROMASIA SLIGHT
[2020-04-26 03:00] LABS: TOXIC GRANULATION SLIGHT
[2020-04-26] MEDS ORDERED: DESMOPRESSIN 20 MCG in IV NORMAL SALINE 50ML 50 ML IV ONE (03:30)
[2020-04-26] MEDS ORDERED: GELATIN SPONGE SIZE 12-7MM SPONGE. ONE (03:40)
[2020-04-26] MEDS ORDERED: IODIXANOL 320 MG/ML 100 ML VIAL. IART ONE (04:00)
[2020-04-26] MEDS ORDERED: LIDOCAINE WITH 8.4% SOD BICARB 3 ML DISP.SYRIN. IJ ONE (04:00)
[2020-04-26] MEDS ORDERED: GELATIN SPONGE SIZE 12-7MM SPONGE. TP ONE (04:30)
[2020-04-26] MEDS ORDERED: MIDAZOLAM HCL/PF 2 MG/2 ML VIAL. IV ONE (04:30)
--- NOTE | 2020-04-26 04:30 | PDOC4 ---
OPERATIVE NOTE: Procedure: L renal angiogram Indication: persistent hemorrhage following biopsy/angiogram Channel Development Manager: Dexter Seeing Eye Dog Teacher: Melissa Patel Complications: None Findings: Intermittent hemorrhage from multiple branch vessels from the left kidney. presumed severe arteriosclerosis with non compliant arteries inducing intermittent bleeding dependent on pressure within vessel tied both to injection pressures and patient's blood pressure. eventually the majority of the renal artery was embolized with gelfoam due to the random nature of the observed spontaneous hemorrhages seen from mutliple locations within the kidney. Patient will likely still need transfer to higher level of care for evaulation by urology and possible nephrectomy either due to persistent hemorrhage which appears to occur intermittently or due to ischemia caused by embolization which was deemed necessary as there was not a focal are of hemorrhage to embolize at any one point in time. ELVIS BURCH MD Apr 26, 2020 04:30
[2020-04-26] MEDS: VASOPRESSIN 20 UNIT in IV DEXTROSE 5% 100ML 100 ML IV PRN ×2 (05:21→12:20)
[2020-04-26 05:57] LABS: HEMATOCRIT 27.9 % (39.0-53.0); HEMOGLOBIN 9.1 g/dL (13.0-17.5); RED BLOOD COUNT 3.08 x10^6/uL (4.30-5.70); RED CELL DISTRIBUTION WIDTH 15.6 % (11.5-14.5); WHITE BLOOD COUNT 16.3 x10^3/uL (4.0-11.0)
[2020-04-26] MEDS: PIPERACILLIN/TAZOBACTAM 2.25 GM in IV NORMAL SALINE 50ML 50 ML IV SCH (06:03)
[2020-04-26 06:21] LABS: ALBUMIN 2.4 g/dL (3.4-5.0); CALCIUM 6.4 mg/dL (8.5-10.1); CREATININE 5.1 mg/dL (0.7-1.3); GFR 11.3; PHOSPHORUS 7.7 mg/dL (2.6-4.7); POTASSIUM 4.9 mmol/L (3.5-5.1)
[2020-04-26] MEDS: CARVEDILOL 3.125 MG TABLET. PO SCH (08:00)
--- NOTE | 2020-04-26 08:37 | PDOC ---
CARDIO Progress Notes Date and Time Date of Service 04/26/2020 Time of Evaluation 0930 Subjective Subjective: No Chest Pain, No shortness of breath, No Palpitations Vitals Vitals Vital Signs Date Time Temp Pulse Resp B/P (MAP) Pulse Ox O2 Delivery O2 Flow Rate FiO2 04/26/20 07:26 26 92 Room Air 04/26/20 07:00 88 135/61 (85) 4.0 04/26/20 04:00 98.0 98.0 Weight Weight [ ] Input and Output Intake and Output Intake and Output 04/26/20 07:00 Intake Total 2247 ml Output Total 67670 ml Balance -08818 ml IV Total 1305 ml Blood Product 300 ml Blood Product IV Normal Saline Flush 642 ml Output Urine Total 96716 ml Laboratory Labs Laboratory Tests Test 04/25/20 09:00 04/25/20 12:08 04/25/20 12:14 04/25/20 13:22 Sodium Level 142 mmol/L (136-145) Potassium Level 4.4 mmol/L (3.5-5.1) Chloride Level 106 mmol/L (98-107) Carbon Dioxide Level 28 mmol/L (21-32) Anion Gap 8 (6-14) Blood Urea Nitrogen 32 mg/dL (8-26) Creatinine 4.2 mg/dL (0.7-1.3) Estimated GFR (Cockcroft-Gault) 14.2 Glucose Level 70 mg/dL (70-99) Calcium Level 7.1 mg/dL (8.5-10.1) Phosphorus Level 3.9 mg/dL (2.6-4.7) Magnesium Level 2.0 mg/dL (1.8-2.4) Albumin 2.6 g/dL (3.4-5.0) Urine Collection Type Clean catch Urine Color Red Urine Clarity Bloody Urine pH (<5.0-8.0) Urine Specific [place] (1.000-1.030) Urine Protein mg/dL (NEG-TRACE) Urine Glucose (UA) mg/dL (NEG) Urine Ketones (Stick) mg/dL (NEG) Urine Blood (NEG) Urine Nitrite (NEG) Urine Bilirubin (NEG) Urine Urobilinogen Dipstick mg/dL (0.2 mg/dL) Urine Leukocyte Esterase (NEG) Urine RBC Tntc /HPF (0-2) Urine WBC Field obscured /HPF (0-4) Urine Bacteria Field obscured /HPF (0-FEW) Glucose (Fingerstick) 96 mg/dL (70-99) Hemoglobin 8.6 g/dL (13.0-17.5) Hematocrit 27.0 % (39.0-53.0) Mean Corpuscular Hemoglobin Concent 32 g/dL (31-37) Test 04/25/20 18:00 04/25/20 21:40 04/26/20 02:00 04/26/20 02:30 White Blood Count 5.0 x10^3/uL (4.0-11.0) 12.0 x10^3/uL (4.0-11.0) 16.7 x10^3/uL (4.0-11.0) Red Blood Count 2.04 x10^6/uL (4.30-5.70) 3.91 x10^6/uL (4.30-5.70) 3.77 x10^6/uL (4.30-5.70) Hemoglobin 6.1 g/dL (13.0-17.5) 11.5 g/dL (13.0-17.5) 11.0 g/dL (13.0-17.5) 10.7 g/dL (13.0-17.5) Hematocrit 18.8 % (39.0-53.0) 35.6 % (39.0-53.0) 34.4 % (39.0-53.0) Mean Corpuscular Volume 92 fL (79-100) 91 fL (79-100) 91 fL (79-100) Mean Corpuscular Hemoglobin 30 pg (25-35) 29 pg (25-35) 29 pg (25-35) Mean Corpuscular Hemoglobin Concent 32 g/dL (31-37) 32 g/dL (31-37) 32 g/dL (31-37) Red Cell Distribution Width 15.7 % (11.5-14.5) 14.8 % (11.5-14.5) 15.7 % (11.5-14.5) Platelet Count 101 x10^3/uL (140-400) 81 x10^3/uL (140-400) 88 x10^3/uL (140-400) Neutrophils (%) (Auto) 83 % (31-73) 85 % (31-73) Lymphocytes (%) (Auto) 10 % (24-48) 4 % (24-48) Monocytes (%) (Auto) 7 % (0-9) 11 % (0-9) Eosinophils (%) (Auto) 0 % (0-3) 0 % (0-3) Basophils (%) (Auto) 0 % (0-3) 0 % (0-3) Neutrophils # (Auto) 4.2 x10^3/uL (1.8-7.7) 14.2 x10^3/uL (1.8-7.7) Lymphocytes # (Auto) 0.5 x10^3/uL (1.0-4.8) 0.7 x10^3/uL (1.0-4.8) Monocytes # (Auto) 0.4 x10^3/uL (0.0-1.1) 1.7 x10^3/uL (0.0-1.1) Eosinophils # (Auto) 0.0 x10^3/uL (0.0-0.7) 0.0 x10^3/uL (0.0-0.7) Basophils # (Auto) 0.0 x10^3/uL (0.0-0.2) 0.0 x10^3/uL (0.0-0.2) Segmented Neutrophils % 82 % (35-66) Band Neutrophils % 1 % (0-9) Lymphocytes % 8 % (24-48) Monocytes % 9 % (0-10) Nucleated Red Blood Cells 1 Toxic Granulation Slight Platelet Estimate Decreased (ADEQUATE) Polychromasia Slight Anisocytosis Slight Helmet Cells Occ Crenated Cell Present Prothrombin Time 18.6 SEC (11.7-14.0) Prothromb Time International Ratio 1.6 (0.8-1.1) Activated Partial Thromboplast Time 39 SEC (24-38) Sodium Level 138 mmol/L (136-145) Potassium Level 5.2 mmol/L (3.5-5.1) Chloride Level 102 mmol/L (98-107) Carbon Dioxide Level 16 mmol/L (21-32) Anion Gap 20 (6-14) Blood Urea Nitrogen 39 mg/dL (8-26) Creatinine 5.2 mg/dL (0.7-1.3) Estimated GFR (Cockcroft-Gault) 11.1 BUN/Creatinine Ratio 8 (6-20) Glucose Level 216 mg/dL (70-99) Calcium Level 6.4 mg/dL (8.5-10.1) Total Bilirubin 1.5 mg/dL (0.2-1.0) Aspartate Amino Transf (AST/SGOT) 93 U/L (15-37) Alanine Aminotransferase (ALT/SGPT) 90 U/L (16-63) Alkaline Phosphatase 95 U/L (46-116) Total Protein 5.7 g/dL (6.4-8.2) Albumin 2.8 g/dL (3.4-5.0) Albumin/Globulin Ratio 1.0 (1.0-1.7) Test 04/26/20 05:20 04/26/20 05:45 SARS-CoV-2 Antigen (Rapid) Negative (NEGATIVE) White Blood Count 16.3 x10^3/uL (4.0-11.0) Red Blood Count 3.08 x10^6/uL (4.30-5.70) Hemoglobin 9.1 g/dL (13.0-17.5) Hematocrit 27.9 % (39.0-53.0) Mean Corpuscular Volume 91 fL (79-100) Mean Corpuscular Hemoglobin 30 pg (25-35) Mean Corpuscular Hemoglobin Concent 33 g/dL (31-37) Red Cell Distribution Width 15.6 % (11.5-14.5) Platelet Count 80 x10^3/uL (140-400) Sodium Level 138 mmol/L (136-145) Potassium Level 4.9 mmol/L (3.5-5.1) Chloride Level 103 mmol/L (98-107) Carbon Dioxide Level 15 mmol/L (21-32) Anion Gap 20 (6-14) Blood Urea Nitrogen 42 mg/dL (8-26) Creatinine 5.1 mg/dL (0.7-1.3) Estimated GFR (Cockcroft-Gault) 11.3 Glucose Level 194 mg/dL (70-99) Calcium Level 6.4 mg/dL (8.5-10.1) Phosphorus Level 7.7 mg/dL (2.6-4.7) Albumin 2.4 g/dL (3.4-5.0) Microbiology Micro Microbiology 04/22/20 Urine Culture - Final, Complete 04/22/20 Antimicrobic Susceptibility - Final, Complete Review of Systems Constitutional: yes: alert Ears/Nose/Throat: Yes: no symptom reported Eyes: Yes: no symptom reported Pulmonary: Yes no symptom reported Cardiovascular: Yes no symptom reported Gastrointestional: Yes: nausea, other (WT LOSS) Genitourinary: Yes: no symptom reported Musculoskeletal: Yes: no symptom reported Skin: Yes no symptom reported Psychiatric/Neurological: Yes: no symptom reported Endocrine: Yes: no symptom reported Hematologic/Lymphatic: Yes: anemia Physical Exam HEENT: Neck Supple W Full Motion Chest: Symmetric LUNGS: Clear to Auscultation Heart: RRR (SR) Abdomen: Soft N/T Extremities: No Edema, No Calf Tenderness Neurology: alert, oriented, follow commands Assessment Assessment 1. Likely New ESRD: awaiting renal biopsy 2. Anemia possibly r/t to renal disease: multiple transfusion as noted below 3. Mild transaminitis: better 4. Minimally elevated troponin at 0.06. No acute ischemic EKG changes. no arrhythmias. Suspect demand mediated. No chest pain 5. Acute combined diastolic/systolic CHF: compensated 6. HTN: controlled 7. Moderate to severe MR 8. Thrombocytopenia: PLT 80 9. Hemorrhagic shock with associated gross hematuria post biopsy: post 4U PRBC.Hgb now at 9.1 10. Cardiomyopathy: EF 20-25% 11. S/P left renal biopsy with gelfoam embolization per IR Recommendations 1. Nold coreg. Presently on vasopressor and levophed 2. Fluid off loading per HD. 3. Low dose statin. Hold ASA at this time, none received pre/post renal biopsy 4. Supportive care 5. Awaiting transfer to [facility] for urology 6. Will consider for future outpt stress test. Follow up in office. Justicifation of Admission Dx: Justifications for Admission: Justification of Admission Dx: Yes Acute Renal Failure: RF Can't Be Managed Outpt DYLAN PAULINO APRN Apr 26, 2020 08:37
[2020-04-26] MEDS ORDERED: IV NORMAL SALINE 1000ML BAG 1,000 ML IV PRN ×2 (09:00)
[2020-04-26] MEDS ORDERED: DIALYSIS PATIENT. MC PRN ×2 (09:00)
--- NOTE | 2020-04-26 10:06 | RAD ---
Procedures: 1. Flush abdominal aortic angiogram 2. Left posterior renal artery angiogram with embolization Clinical Indication: Persistent hemodynamic instability following left renal biopsy and angiogram wit h embolization. Patient evaluated for transfer. Patient was reportedly not a transfer candidate at [facility] in the region at this time. Repeat angiogram indicated as a salvage measure at this point due to persistent bleeding from the left kidney. The procedure, risks, and complications, to include bleeding, contrast reaction, hematoma, pseudoaneu rysm, active bleeding, infection, vessel injury, vascular dissection were explained to the patient , and they understood same and wished to proceed. Consent form signed. The left groin was prepped and draped using maximum sterile technique, including the use of: Current guideline approved cutaneous antisepsis, a large sterile sheet to establish a sterile field. Addition ally the chalk extruding machine operator wore a hat, mask, sterile gloves, a sterile gown during the procedure as well as pr acticed acceptable hand hygiene prior to placing the line. If ultrasound was utilized, sterile ultras ound technique was followed. Lidocaine epinephrine was used for local anesthesia. Ultrasound guidance was used for access. An ultrasound image was saved and sent to PACS. Ultrasound d emonstrated patency of the femoral artery. A single was puncture was made into the left common femoral artery followed by placement of a 5 Frenc h sheath. VESSELS INJECTED: 1. Flush abdominal aortic angiogram. A flush catheter was placed into the abdominal aorta. Digital brian btraction gram was performed. Unfortunately the length of the exposure was relatively short due to si gnificant patient motion. No erika extravasation is identified. There is diffuse vasospasm. Arteries aren't otherwise not well evaluated. 2. Left renal artery: A reverse curve catheter was advanced into the left renal artery. The early bif urcation of the renal artery ostia was not identified and the posterior renal artery was fortuitously selected. Hand injection of the left posterior renal artery shows at least 4 spontaneous foci of hemorrhage. At this point it is unlikely that they are all related to the biopsy as they are broadly distributed th roughout the posterior aspect of the left kidney. At this point the working hypothesis is that the pa tient has a mild stenosis of the left posterior segment renal artery which was successfully traversed with the 5 Trin[place] catheter. Additionally it is likely the patient has some degree of arterial sclero sis from known diabetes. With the partial occlusion of the renal artery ostia with the catheter as we ll as the relative increased pressure caused by the hand-injection it is possible there was damage to the end arteries during the injection of contrast causing extravasation induced by hand injection of the arteries alone. Within the catheter was withdrawn more proximally into the proximal renal artery proximal to the stenosis this finding is not identified on hand injection. A small branch vessel, li rosangela a subcapsular artery was selected as there was active extravasation identified. This was success fully embolized utilizing a small amount of Gelfoam slurry. Next the 2 main renal arteries in the pos terior segment were identified as having active extravasation. These were also gently embolized using a Gelfoam slurry. Of note. Throughout the procedure there is no parenchymal phase identified of the contrast suggesting again in the arterial damage which was pre-existing either due to intrinsic renal dysfunction which is long-standing associated with the patient's diabetes or compression from the pe rinephric hematoma. Regardless after gentle Gelfoam embolization there is no further extravasation id entified from the previously identified foci of hemorrhage on the initial hand injection. The anterio r segment left renal artery was not identified or evaluated. However, this artery had been previously evaluated on angiogram performed on 04/25/2020 and a small foci of bleeding was identified at that ti me from that branch which was then successfully embolized to stasis. INTERVENTION: Gelfoam embolization of what is likely a left subcapsular renal artery as well as the 2 main posterio r divisions of the posterior segment left renal artery. Complications: None. The sheath was left in place for arterial pressure monitoring as the patient had previously been hemo dynamically unstable. Fluoroscopy time: 6.8 minutes Kerma Air Product: [id number] Contrast: 120 cc Sedation: None. Continual cardiopulmonary monitoring was carried out during the procedure. The yoselin ent tolerated the procedure well and there were no immediate complications. The patient tolerated the procedure well and will be observed in the ICU. IMPRESSION: 1. Left posterior segment renal artery angiogram showing multiple foci of contrast extravasation. Chase e of these may be secondary to the patient's biopsy, however, it is believed some of these foci are i atrogenic during hand injection of contrast through the left posterior segment renal artery. Successf ul Gelfoam embolization of multiple renal artery branches from which there was active extravasation. Upon completion there is no further active extravasation. 2. Again recommend transfer workup for this patient as he may require a higher level of care, particu larly where urologic care can be administered to the patient. Due to the multiple embolizations of th e left kidney during multiple angiograms there are concerns now for ischemia as well as persistent bl eeding. Patient may eventually need nephrectomy. Electronically signed by: Scooby Renteria MD (04/26/2020 10:04 AM) [id number]
[2020-04-26] MEDS: SEVELAMER CARBONATE 800 MG TABLET. PO SCH ×2 (10:10→12:27)
[2020-04-26] MEDS: FAMOTIDINE 20 MG/2 ML VIAL IVP SCH (10:10)
--- NOTE | 2020-04-26 10:15 | RAD ---
Procedure: Ultrasound-guided placement of right internal jugular central venous catheter 04/26/2020 8:08 AM Clinical Indication: Hypotension, need for emergent transfusion. Discussion: The risks and benefits of the procedure were discussed the patient and/or their ocean import representative. Informed consent was obtained. A timeout procedure was performed. All elements of maximal sterile barrier technique including the use of a cap, mask, sterile gown, sterile gloves, large sterile sheet, appropriate hand hygiene, and 2% chlorhexidine for cutaneous antisepsis (or acceptable alternative antiseptic per current guidelines) were followed for this procedure. The patient was prepped and draped in the usual sterile fashion. Ultrasound interrogation of the right neck revealed patency and compressibility of the right internal jugular vein. A 21-gauge micropuncture was then used to gain access to this vein under ultrasound guidance. A hard copy ultrasound image was recorded. A guidewire was advanced centrally. 5 Greek sheath was placed. Over a wire following dilatation, a triple-lumen central venous catheter was advanced centrally. Catheter was found to flush and aspirate normally. Follow-up chest radiograph demonstrates tip at the cavoatrial junction. Catheter secured in place and a sterile dressing was applied. No immediate complications were identified. Impression: Successful ultrasound-guided placement of right internal jugular triple-lumen central venous catheter
--- NOTE | 2020-04-26 10:18 | PDOC ---
[employer] PROGRESS NOTE Date of Service DOS: DATE: 04/26/20 TIME: 10:14 Chief Complaint Chief Complaint IMPRESSION Acute renal failure Hyperkalemia Hypocalcemia, renal to dialyze Transaminitis Jaundice Elevated BNP Elevated troponins UTI URINATING CONY BLOOD, IR NOTIFIED 04-25 POST RENAL BX 04-25 Hemodynamic instability requiring vasopressors Profound anemia due to acute blood loss around the left posterior renal artery, uncontrolled Plan: Pending transfer to [facility] for urology coverage for possible nephrectomy Nephrology for acute renal failure; initiated on hemodialysis consult gi PNEUMONIA IV ZOSYN Patient received calcium gluconate and sodium bicarb. Placed on bicarb drip. Consult to cardiology for elevated troponins, will continue to trend. Will consult GI for transaminitis and jaundice. Chest x-ray on admission shows patchy interstitial opacities, could be secondary to vascular congestion or infiltrates. Afebrile, nontoxic-appearing. Will treat empirically with renally dosed ZOSYN possible community-acquired pneumonia./UTI Unintentional weight loss of constitutional symptoms consistent with malignancy, but no clear source or etiology identified at this time. FEN - regular diet PPX - Heparin Sono with fatty liver. likely source of elevated LFT's. FULL CODE Dispo - inpatient for above Patient is a surrogate decision-maker as Brian Meade (family friend). Phone number: [phone] 04-25 PENILE BLEEDING , HYPOTENSIVE, BOLUSED WITH NS TO ICU NOW. PRN PRESSORS 35 MIN CC TIME min pt exam, chart review, > 50% of time spent with exam, chart review, pt care coordination History of Present Illness History of Present Illness Patient 69-year-old male no stated past medical history who resents to the ER with complaint of generalized weakness for the past 3 months. Over this time patient notes associated 40 pound unintentional weight loss, and constitutional symptoms of night sweats and intermittent nocturnal fevers. He lives alone and presents to the ED at the behest of his family friend, who has been urging patient to be seen by a doctor for the past several months. Upon evaluation in the ER he is noted to be jaundice with icteric sclera. He states he has not urinated today, and upon evaluation in the ER he was noted to be in renal failure. Patient is alert and oriented to self and place. He really does not have any complaints except for admitted weakness, and he requires much prodding to obtain information. Will admit patient for further medical management. 04/21: Patient without complaints today. Hemoglobin 6.7, potassium improved. Ordered 2 units pRBC. Due to presenting symptoms of weakness and intermittent fevers. Will swab patient for COVID-19. He may transfer 6th floor. Denies fever or nausea. 04-22 renal fx worse, starting dialysis 04-22, recent 40 lb weight lossSono c/w fatty liver. likely source of elevated LFT's. needs RENAL BIOPSY JOSE ALBERTO NON CA BINDERS 04/26/2020 Patient continues to be on vasopressors for maps between 60-70. Attempting to transfer to [facility] for urology coverage. Patient this morning was taken to IR for angio and was unable to determine definitive site of bleeding. IR was able to place Gelfoam within the renal artery. Patient still needs to have urology on board for definitive management for uncontrolled bleeding. Possibly needing nephrectomy. Patient has not initiated dialysis as of yet. We will continue to trend chemistries and H&H. PRBC transfusion as needed. Patient's chart, labs, images were reviewed and discussed with RN Vitals/I&O Vitals/I&O: Vital Signs Date Time Temp Pulse Resp B/P (MAP) Pulse Ox O2 Delivery O2 Flow Rate FiO2 04/26/20 09:17 16 100 Nasal Cannula 4.0 04/26/20 09:00 85 112/51 (71) 04/26/20 08:00 97.6 97.6 I & O 04/25/20 04/25/20 04/26/20 15:00 23:00 07:00 Intake Total 942 ml 1305 ml Output Total 53991 ml 6050 ml Balance -96444 ml -4745 ml Physical Exam General: Alert, Oriented X3, Cooperative, No acute distress, mild distress Heart: Regular rate, Normal S1, Normal S2 Lungs: Clear Abdomen: Normal bowel sounds, Soft Extremities: No clubbing Skin: No breakdown Labs Labs: Laboratory Tests Test 04/25/20 12:08 04/25/20 12:14 04/25/20 13:22 04/25/20 18:00 Urine Collection Type Clean catch Urine Color Red Urine Clarity Bloody Urine pH (<5.0-8.0) Urine Specific [place] (1.000-1.030) Urine Protein mg/dL (NEG-TRACE) Urine Glucose (UA) mg/dL (NEG) Urine Ketones (Stick) mg/dL (NEG) Urine Blood (NEG) Urine Nitrite (NEG) Urine Bilirubin (NEG) Urine Urobilinogen Dipstick mg/dL (0.2 mg/dL) Urine Leukocyte Esterase (NEG) Urine RBC Tntc /HPF (0-2) Urine WBC Field obscured /HPF (0-4) Urine Bacteria Field obscured /HPF (0-FEW) Glucose (Fingerstick) 96 mg/dL (70-99) Hemoglobin 8.6 g/dL (13.0-17.5) 6.1 g/dL (13.0-17.5) Hematocrit 27.0 % (39.0-53.0) 18.8 % (39.0-53.0) Mean Corpuscular Hemoglobin Concent 32 g/dL (31-37) 32 g/dL (31-37) White Blood Count 5.0 x10^3/uL (4.0-11.0) Red Blood Count 2.04 x10^6/uL (4.30-5.70) Mean Corpuscular Volume 92 fL (79-100) Mean Corpuscular Hemoglobin 30 pg (25-35) Red Cell Distribution Width 15.7 % (11.5-14.5) Platelet Count 101 x10^3/uL (140-400) Neutrophils (%) (Auto) 83 % (31-73) Lymphocytes (%) (Auto) 10 % (24-48) Monocytes (%) (Auto) 7 % (0-9) Eosinophils (%) (Auto) 0 % (0-3) Basophils (%) (Auto) 0 % (0-3) Neutrophils # (Auto) 4.2 x10^3/uL (1.8-7.7) Lymphocytes # (Auto) 0.5 x10^3/uL (1.0-4.8) Monocytes # (Auto) 0.4 x10^3/uL (0.0-1.1) Eosinophils # (Auto) 0.0 x10^3/uL (0.0-0.7) Basophils # (Auto) 0.0 x10^3/uL (0.0-0.2) Test 04/25/20 21:40 04/26/20 02:00 04/26/20 02:30 04/26/20 05:20 White Blood Count 12.0 x10^3/uL (4.0-11.0) 16.7 x10^3/uL (4.0-11.0) Red Blood Count 3.91 x10^6/uL (4.30-5.70) 3.77 x10^6/uL (4.30-5.70) Hemoglobin 11.5 g/dL (13.0-17.5) 11.0 g/dL (13.0-17.5) 10.7 g/dL (13.0-17.5) Hematocrit 35.6 % (39.0-53.0) 34.4 % (39.0-53.0) Mean Corpuscular Volume 91 fL (79-100) 91 fL (79-100) Mean Corpuscular Hemoglobin 29 pg (25-35) 29 pg (25-35) Mean Corpuscular Hemoglobin Concent 32 g/dL (31-37) 32 g/dL (31-37) Red Cell Distribution Width 14.8 % (11.5-14.5) 15.7 % (11.5-14.5) Platelet Count 81 x10^3/uL (140-400) 88 x10^3/uL (140-400) Neutrophils (%) (Auto) 85 % (31-73) Lymphocytes (%) (Auto) 4 % (24-48) Monocytes (%) (Auto) 11 % (0-9) Eosinophils (%) (Auto) 0 % (0-3) Basophils (%) (Auto) 0 % (0-3) Neutrophils # (Auto) 14.2 x10^3/uL (1.8-7.7) Lymphocytes # (Auto) 0.7 x10^3/uL (1.0-4.8) Monocytes # (Auto) 1.7 x10^3/uL (0.0-1.1) Eosinophils # (Auto) 0.0 x10^3/uL (0.0-0.7) Basophils # (Auto) 0.0 x10^3/uL (0.0-0.2) Segmented Neutrophils % 82 % (35-66) Band Neutrophils % 1 % (0-9) Lymphocytes % 8 % (24-48) Monocytes % 9 % (0-10) Nucleated Red Blood Cells 1 Toxic Granulation Slight Platelet Estimate Decreased (ADEQUATE) Polychromasia Slight Anisocytosis Slight Helmet Cells Occ Crenated Cell Present Prothrombin Time 18.6 SEC (11.7-14.0) Prothromb Time International Ratio 1.6 (0.8-1.1) Activated Partial Thromboplast Time 39 SEC (24-38) Sodium Level 138 mmol/L (136-145) Potassium Level 5.2 mmol/L (3.5-5.1) Chloride Level 102 mmol/L (98-107) Carbon Dioxide Level 16 mmol/L (21-32) Anion Gap 20 (6-14) Blood Urea Nitrogen 39 mg/dL (8-26) Creatinine 5.2 mg/dL (0.7-1.3) Estimated GFR (Cockcroft-Gault) 11.1 BUN/Creatinine Ratio 8 (6-20) Glucose Level 216 mg/dL (70-99) Calcium Level 6.4 mg/dL (8.5-10.1) Total Bilirubin 1.5 mg/dL (0.2-1.0) Aspartate Amino Transf (AST/SGOT) 93 U/L (15-37) Alanine Aminotransferase (ALT/SGPT) 90 U/L (16-63) Alkaline Phosphatase 95 U/L (46-116) Total Protein 5.7 g/dL (6.4-8.2) Albumin 2.8 g/dL (3.4-5.0) Albumin/Globulin Ratio 1.0 (1.0-1.7) SARS-CoV-2 Antigen (Rapid) Negative (NEGATIVE) Test 04/26/20 05:45 White Blood Count 16.3 x10^3/uL (4.0-11.0) Red Blood Count 3.08 x10^6/uL (4.30-5.70) Hemoglobin 9.1 g/dL (13.0-17.5) Hematocrit 27.9 % (39.0-53.0) Mean Corpuscular Volume 91 fL (79-100) Mean Corpuscular Hemoglobin 30 pg (25-35) Mean Corpuscular Hemoglobin Concent 33 g/dL (31-37) Red Cell Distribution Width 15.6 % (11.5-14.5) Platelet Count 80 x10^3/uL (140-400) Sodium Level 138 mmol/L (136-145) Potassium Level 4.9 mmol/L (3.5-5.1) Chloride Level 103 mmol/L (98-107) Carbon Dioxide Level 15 mmol/L (21-32) Anion Gap 20 (6-14) Blood Urea Nitrogen 42 mg/dL (8-26) Creatinine 5.1 mg/dL (0.7-1.3) Estimated GFR (Cockcroft-Gault) 11.3 Glucose Level 194 mg/dL (70-99) Calcium Level 6.4 mg/dL (8.5-10.1) Phosphorus Level 7.7 mg/dL (2.6-4.7) Albumin 2.4 g/dL (3.4-5.0) Assessment and Plan Assessmemt and Plan Problems Medical Problems: (1) Elevated troponin Status: Acute (2) PNA (pneumonia) Status: Acute Comment Review of Relevant I have reviewed the following items amee (where applicable) has been applied. Medications: Current Medications Medications (Trade) Dose Ordered Sig/Mary Route PRN Reason Start Time Stop Time Status Last Admin Dose Admin Piperacillin Sod/ Tazobactam Sod 2.25 gm/Sodium Chloride 50 ml @ 100 mls/hr Q8HRS IV 04/25/20 14:00 04/26/20 06:03 Famotidine (Pepcid Vial) 20 mg DAILY IVP 04/25/20 16:00 04/26/20 10:10 Sodium Chloride 1,000 ml @ 100 mls/hr Q10H IV 04/25/20 15:00 04/26/20 02:53 Norepinephrine Bitartrate 8 mg/ Dextrose 258 ml @ 13.429 mls/ hr CONT PRN IV PER PROTOCOL 04/25/20 15:30 04/26/20 02:48 Heparin Sodium/ Sodium Chloride (HEPARIN for ARTERIAL LINE FLUSH) 2,000 unit 1X ONCE IART 04/25/20 15:45 04/25/20 15:46 DC 04/25/20 15:45 Heparin Sodium/ Sodium Chloride (HEPARIN for ARTERIAL LINE FLUSH) 1,000 unit 1X ONCE IART 04/25/20 15:45 04/25/20 15:46 DC 04/25/20 15:45 Lidocaine HCl (Buffered Lidocaine 1%) 3 ml 1X ONCE IJ 04/25/20 15:45 04/25/20 15:46 DC 04/25/20 15:45 Iodixanol (Visipaque 320) 100 ml 1X ONCE IART 04/25/20 15:45 04/25/20 15:46 DC 04/25/20 15:45 Iodixanol (Visipaque 320) 50 ml 1X ONCE IART 04/25/20 15:45 04/25/20 15:46 DC 04/25/20 15:45 Sodium Chloride 1,000 ml @ 1,000 mls/hr 1X ONCE IV 04/25/20 15:45 04/25/20 16:44 DC 04/25/20 15:45 Fentanyl Citrate (Fentanyl 2ml Vial) 25 mcg 1X ONCE IVP 04/25/20 15:30 04/25/20 15:49 DC 04/25/20 15:30 Fentanyl Citrate (Fentanyl 2ml Vial) 50 mcg PRN Q3HRS PRN IVP PAIN 04/25/20 16:15 04/25/20 18:16 DC 04/25/20 16:16 Fentanyl Citrate (Fentanyl 2ml Vial) 50 mcg PRN Q1HR PRN IVP PAIN 04/25/20 18:15 04/26/20 08:47 Desmopressin Acetate 20 mcg/ Sodium Chloride 55 ml @ 100 mls/hr 1X ONCE IV 04/26/20 03:30 04/26/20 04:02 DC 04/26/20 02:47 Heparin Sodium/ Sodium Chloride (HEPARIN for ARTERIAL LINE FLUSH) 1,000 unit 1X ONCE IART 04/26/20 04:00 04/26/20 04:01 DC 04/26/20 04:00 Heparin Sodium/ Sodium Chloride (HEPARIN for ARTERIAL LINE FLUSH) 1,000 unit 1X ONCE IART 04/26/20 04:00 04/26/20 04:01 DC 04/26/20 04:00 Lidocaine HCl (Buffered Lidocaine 1%) 3 ml 1X ONCE IJ 04/26/20 04:00 04/26/20 04:01 DC 04/26/20 04:00 Iodixanol (Visipaque 320) 100 ml 1X ONCE IART 04/26/20 04:00 04/26/20 04:01 DC 04/26/20 04:00 Midazolam HCl (Versed) 2 mg 1X ONCE IV 04/26/20 04:30 04/26/20 04:31 DC 04/26/20 04:30 Gelatin (Gelfoam Size 12-7mm) 1 each 1X ONCE TP 04/26/20 04:30 04/26/20 04:31 DC 04/26/20 04:30 Vasopressin 20 unit/Dextrose 101 ml @ 12 mls/hr CONT PRN IV SEE I/O RECORD 04/26/20 05:00 04/26/20 05:21 Justifications for Admission Other Justification Acute renal failure, unintentional weight loss, jaundice, transaminitis MOON BLISS MD Apr 26, 2020 10:18
--- NOTE | 2020-04-26 10:30 | NUR ---
SS following up with discharge planning. SS reviewed pt chart and discussed with pt RN. Pt transferred to ICU on 04/25/2020. COVID19 negative. Pt has a clot that is obstructing his bladder. Blood in urine. Pt received three units of blood. RN checking H&H every six hours. Pt on IV Zosyn, Levophed, and Vasopressin. Request for transfer to other hospital for Urology received. Pt needing ICU bed. Transfer requests to [facility], [facility], and made by physician. [facility] declined. SS contacted [facility] and was notified that pt was taken off the wait list because they have NO beds. SS contacted [facility], , and was notified that [facility] has NO beds. SS requested that [facility] check all other hospitals. Transfer requests being made to [facility], [facility], and [facility]. SS contacted [facility], , and [facility], , and made request for transfer. SS currently awaiting return calls. SS notified by pt's RN that they did call [facility] and was notified that there urology is out for ten days. SS will continue to follow for discharge planning. Packet, transfer form, and ambulance form on the chart.
--- NOTE | 2020-04-26 10:51 | NUR ---
Bladder scan shows 747mls. Patient experiencing 10/10 pain. CBI currently clotted off. Has been clotted off since 299. Will replace [address] Ford.
--- NOTE | 2020-04-26 10:56 | PDOC ---
Date of Service: DATE: 04/26/20 TIME: 10:47 Subjective: Subjective: Feels like he has to urinate, uncomfortable. Objective: Objective: Transfer to ICU yesterday w/ hematuria after renal biopsy - interventions/imaging as below. D/w nurse - possible transfer today to hospital w/ urology available, ?nephrectomy - CBI clotted off, needing less levophed. Vital Signs: Vital Signs Date Time Temp Pulse Resp B/P (MAP) Pulse Ox O2 Delivery O2 Flow Rate FiO2 04/26/20 10:00 85 16 100/46 (64) 99 Nasal Cannula 2.0 04/26/20 08:00 97.6 97.6 Labs: Laboratory Tests Test 04/25/20 12:08 04/25/20 12:14 04/25/20 13:22 04/25/20 18:00 Urine Collection Type Clean catch Urine Color Red Urine Clarity Bloody Urine pH Urine Specific [place] Urine Protein mg/dL Urine Glucose (UA) mg/dL Urine Ketones (Stick) mg/dL Urine Blood Urine Nitrite Urine Bilirubin Urine Urobilinogen Dipstick mg/dL Urine Leukocyte Esterase Urine RBC Tntc /HPF Urine WBC Field obscured /HPF Urine Bacteria Field obscured /HPF Glucose (Fingerstick) 96 mg/dL Hemoglobin 8.6 g/dL 6.1 g/dL Hematocrit 27.0 % 18.8 % Mean Corpuscular Hemoglobin Concent 32 g/dL 32 g/dL White Blood Count 5.0 x10^3/uL Red Blood Count 2.04 x10^6/uL Mean Corpuscular Volume 92 fL Mean Corpuscular Hemoglobin 30 pg Red Cell Distribution Width 15.7 % Platelet Count 101 x10^3/uL Neutrophils (%) (Auto) 83 % Lymphocytes (%) (Auto) 10 % Monocytes (%) (Auto) 7 % Eosinophils (%) (Auto) 0 % Basophils (%) (Auto) 0 % Neutrophils # (Auto) 4.2 x10^3/uL Lymphocytes # (Auto) 0.5 x10^3/uL Monocytes # (Auto) 0.4 x10^3/uL Eosinophils # (Auto) 0.0 x10^3/uL Basophils # (Auto) 0.0 x10^3/uL Test 04/25/20 21:40 04/26/20 02:00 04/26/20 02:30 04/26/20 05:20 White Blood Count 12.0 x10^3/uL 16.7 x10^3/uL Red Blood Count 3.91 x10^6/uL 3.77 x10^6/uL Hemoglobin 11.5 g/dL 11.0 g/dL 10.7 g/dL Hematocrit 35.6 % 34.4 % Mean Corpuscular Volume 91 fL 91 fL Mean Corpuscular Hemoglobin 29 pg 29 pg Mean Corpuscular Hemoglobin Concent 32 g/dL 32 g/dL Red Cell Distribution Width 14.8 % 15.7 % Platelet Count 81 x10^3/uL 88 x10^3/uL Neutrophils (%) (Auto) 85 % Lymphocytes (%) (Auto) 4 % Monocytes (%) (Auto) 11 % Eosinophils (%) (Auto) 0 % Basophils (%) (Auto) 0 % Neutrophils # (Auto) 14.2 x10^3/uL Lymphocytes # (Auto) 0.7 x10^3/uL Monocytes # (Auto) 1.7 x10^3/uL Eosinophils # (Auto) 0.0 x10^3/uL Basophils # (Auto) 0.0 x10^3/uL Segmented Neutrophils % 82 % Band Neutrophils % 1 % Lymphocytes % 8 % Monocytes % 9 % Nucleated Red Blood Cells 1 Toxic Granulation Slight Platelet Estimate Decreased Polychromasia Slight Anisocytosis Slight Helmet Cells Occ Crenated Cell Present Prothrombin Time 18.6 SEC Prothromb Time International Ratio 1.6 Activated Partial Thromboplast Time 39 SEC Sodium Level 138 mmol/L Potassium Level 5.2 mmol/L Chloride Level 102 mmol/L Carbon Dioxide Level 16 mmol/L Anion Gap 20 Blood Urea Nitrogen 39 mg/dL Creatinine 5.2 mg/dL Estimated GFR (Cockcroft-Gault) 11.1 BUN/Creatinine Ratio 8 Glucose Level 216 mg/dL Calcium Level 6.4 mg/dL Total Bilirubin 1.5 mg/dL Aspartate Amino Transf (AST/SGOT) 93 U/L Alanine Aminotransferase (ALT/SGPT) 90 U/L Alkaline Phosphatase 95 U/L Total Protein 5.7 g/dL Albumin 2.8 g/dL Albumin/Globulin Ratio 1.0 SARS-CoV-2 Antigen (Rapid) Negative Test 04/26/20 05:45 White Blood Count 16.3 x10^3/uL Red Blood Count 3.08 x10^6/uL Hemoglobin 9.1 g/dL Hematocrit 27.9 % Mean Corpuscular Volume 91 fL Mean Corpuscular Hemoglobin 30 pg Mean Corpuscular Hemoglobin Concent 33 g/dL Red Cell Distribution Width 15.6 % Platelet Count 80 x10^3/uL Sodium Level 138 mmol/L Potassium Level 4.9 mmol/L Chloride Level 103 mmol/L Carbon Dioxide Level 15 mmol/L Anion Gap 20 Blood Urea Nitrogen 42 mg/dL Creatinine 5.1 mg/dL Estimated GFR (Cockcroft-Gault) 11.3 Glucose Level 194 mg/dL Calcium Level 6.4 mg/dL Phosphorus Level 7.7 mg/dL Albumin 2.4 g/dL URINE CULTURE Final Final 20,000 CFU/ML GRAM POSITIVE COCCI on 04/26/20 at 1041 FINAL ID= [[id number]] Imaging: Renal Biopsy 04/25 Pelv US 04/25 IMPRESSION: * Large amount of heterogenous material seen within the urinary bladder. The most likely cause is blood within the lumen given that this was not seen on prior CT from April 20, 2020. CXR 04/25 IMPRESSION: Double lumen and small caliber central venous catheter is present with the tips at the superior vena cava/right atrial junction. No pneumothorax. Poor inspiratory effort but continued presence of some mild hazy opacity at the right lung base. Abd Angio 04/26 INTERVENTION: Gelfoam embolization of what is likely a left subcapsular renal artery as well as the 2 main posterior divisions of the posterior segment left renal artery. IMPRESSION: 1. Left posterior segment renal artery angiogram showing multiple foci of contrast extravasation. Some of these may be secondary to the patient's biopsy, however, it is believed some of these foci are iatrogenic during hand injection of contrast through the left posterior segment renal artery. Successful Gelfoam embolization of multiple renal artery branches from which there was active extravasation. Upon completion there is no further active extravasation. 2. Again recommend transfer workup for this patient as he may require a higher level of care, particularly where urologic care can be administered to the patient. Due to the multiple embolizations of the left kidney during multiple angiograms there are concerns now for ischemia as well as persistent bleeding. Patient may eventually need nephrectomy. PE: GEN: NAD LUNGS: NC 2L, clear HEART: RR ABD: soft NEURO/PSYCH: A & O 3 A/P: Renal failure s/p renal biopsy, hematuria - required transfusions ACD, thrombocytopenia, elevated LFTs (fluctuating) COVID negative 04/20 -- Possible transfer today. Justicifation of Admission Dx: Justifications for Admission: Justification of Admission Dx: Yes Acute Renal Failure: RF Can't Be Managed Outpt PORFIRIO WHITE Apr 26, 2020 10:56
--- NOTE | 2020-04-26 11:51 | PDOC ---
Renal-Progress Notes Subjective Notes Notes HAVING BLADDER PAIN History of Present Illness Hx of present illness NOTED BELOW. HAD HEMATURIA AFTER RENAL BX Vitals Vitals Vital Signs Date Time Temp Pulse Resp B/P (MAP) Pulse Ox O2 Delivery O2 Flow Rate FiO2 04/26/20 11:31 Nasal Cannula 2.0 04/26/20 11:28 16 97 04/26/20 11:00 88 123/50 (74) 04/26/20 08:00 97.6 97.6 Weight Weight [ ] I.O. Intake and Output Intake and Output 04/26/20 07:00 Intake Total 2247 ml Output Total 24949 ml Balance -19111 ml IV Total 1305 ml Blood Product 300 ml Blood Product IV Normal Saline Flush 642 ml Output Urine Total 88744 ml Labs Labs Laboratory Tests Test 04/25/20 12:08 04/25/20 12:14 04/25/20 13:22 04/25/20 18:00 Urine Collection Type Clean catch Urine Color Red Urine Clarity Bloody Urine pH (<5.0-8.0) Urine Specific [place] (1.000-1.030) Urine Protein mg/dL (NEG-TRACE) Urine Glucose (UA) mg/dL (NEG) Urine Ketones (Stick) mg/dL (NEG) Urine Blood (NEG) Urine Nitrite (NEG) Urine Bilirubin (NEG) Urine Urobilinogen Dipstick mg/dL (0.2 mg/dL) Urine Leukocyte Esterase (NEG) Urine RBC Tntc /HPF (0-2) Urine WBC Field obscured /HPF (0-4) Urine Bacteria Field obscured /HPF (0-FEW) Glucose (Fingerstick) 96 mg/dL (70-99) Hemoglobin 8.6 g/dL (13.0-17.5) 6.1 g/dL (13.0-17.5) Hematocrit 27.0 % (39.0-53.0) 18.8 % (39.0-53.0) Mean Corpuscular Hemoglobin Concent 32 g/dL (31-37) 32 g/dL (31-37) White Blood Count 5.0 x10^3/uL (4.0-11.0) Red Blood Count 2.04 x10^6/uL (4.30-5.70) Mean Corpuscular Volume 92 fL (79-100) Mean Corpuscular Hemoglobin 30 pg (25-35) Red Cell Distribution Width 15.7 % (11.5-14.5) Platelet Count 101 x10^3/uL (140-400) Neutrophils (%) (Auto) 83 % (31-73) Lymphocytes (%) (Auto) 10 % (24-48) Monocytes (%) (Auto) 7 % (0-9) Eosinophils (%) (Auto) 0 % (0-3) Basophils (%) (Auto) 0 % (0-3) Neutrophils # (Auto) 4.2 x10^3/uL (1.8-7.7) Lymphocytes # (Auto) 0.5 x10^3/uL (1.0-4.8) Monocytes # (Auto) 0.4 x10^3/uL (0.0-1.1) Eosinophils # (Auto) 0.0 x10^3/uL (0.0-0.7) Basophils # (Auto) 0.0 x10^3/uL (0.0-0.2) Test 04/25/20 21:40 04/26/20 02:00 04/26/20 02:30 04/26/20 05:20 White Blood Count 12.0 x10^3/uL (4.0-11.0) 16.7 x10^3/uL (4.0-11.0) Red Blood Count 3.91 x10^6/uL (4.30-5.70) 3.77 x10^6/uL (4.30-5.70) Hemoglobin 11.5 g/dL (13.0-17.5) 11.0 g/dL (13.0-17.5) 10.7 g/dL (13.0-17.5) Hematocrit 35.6 % (39.0-53.0) 34.4 % (39.0-53.0) Mean Corpuscular Volume 91 fL (79-100) 91 fL (79-100) Mean Corpuscular Hemoglobin 29 pg (25-35) 29 pg (25-35) Mean Corpuscular Hemoglobin Concent 32 g/dL (31-37) 32 g/dL (31-37) Red Cell Distribution Width 14.8 % (11.5-14.5) 15.7 % (11.5-14.5) Platelet Count 81 x10^3/uL (140-400) 88 x10^3/uL (140-400) Neutrophils (%) (Auto) 85 % (31-73) Lymphocytes (%) (Auto) 4 % (24-48) Monocytes (%) (Auto) 11 % (0-9) Eosinophils (%) (Auto) 0 % (0-3) Basophils (%) (Auto) 0 % (0-3) Neutrophils # (Auto) 14.2 x10^3/uL (1.8-7.7) Lymphocytes # (Auto) 0.7 x10^3/uL (1.0-4.8) Monocytes # (Auto) 1.7 x10^3/uL (0.0-1.1) Eosinophils # (Auto) 0.0 x10^3/uL (0.0-0.7) Basophils # (Auto) 0.0 x10^3/uL (0.0-0.2) Segmented Neutrophils % 82 % (35-66) Band Neutrophils % 1 % (0-9) Lymphocytes % 8 % (24-48) Monocytes % 9 % (0-10) Nucleated Red Blood Cells 1 Toxic Granulation Slight Platelet Estimate Decreased (ADEQUATE) Polychromasia Slight Anisocytosis Slight Helmet Cells Occ Crenated Cell Present Prothrombin Time 18.6 SEC (11.7-14.0) Prothromb Time International Ratio 1.6 (0.8-1.1) Activated Partial Thromboplast Time 39 SEC (24-38) Sodium Level 138 mmol/L (136-145) Potassium Level 5.2 mmol/L (3.5-5.1) Chloride Level 102 mmol/L (98-107) Carbon Dioxide Level 16 mmol/L (21-32) Anion Gap 20 (6-14) Blood Urea Nitrogen 39 mg/dL (8-26) Creatinine 5.2 mg/dL (0.7-1.3) Estimated GFR (Cockcroft-Gault) 11.1 BUN/Creatinine Ratio 8 (6-20) Glucose Level 216 mg/dL (70-99) Calcium Level 6.4 mg/dL (8.5-10.1) Total Bilirubin 1.5 mg/dL (0.2-1.0) Aspartate Amino Transf (AST/SGOT) 93 U/L (15-37) Alanine Aminotransferase (ALT/SGPT) 90 U/L (16-63) Alkaline Phosphatase 95 U/L (46-116) Total Protein 5.7 g/dL (6.4-8.2) Albumin 2.8 g/dL (3.4-5.0) Albumin/Globulin Ratio 1.0 (1.0-1.7) SARS-CoV-2 Antigen (Rapid) Negative (NEGATIVE) Test 04/26/20 05:45 White Blood Count 16.3 x10^3/uL (4.0-11.0) Red Blood Count 3.08 x10^6/uL (4.30-5.70) Hemoglobin 9.1 g/dL (13.0-17.5) Hematocrit 27.9 % (39.0-53.0) Mean Corpuscular Volume 91 fL (79-100) Mean Corpuscular Hemoglobin 30 pg (25-35) Mean Corpuscular Hemoglobin Concent 33 g/dL (31-37) Red Cell Distribution Width 15.6 % (11.5-14.5) Platelet Count 80 x10^3/uL (140-400) Sodium Level 138 mmol/L (136-145) Potassium Level 4.9 mmol/L (3.5-5.1) Chloride Level 103 mmol/L (98-107) Carbon Dioxide Level 15 mmol/L (21-32) Anion Gap 20 (6-14) Blood Urea Nitrogen 42 mg/dL (8-26) Creatinine 5.1 mg/dL (0.7-1.3) Estimated GFR (Cockcroft-Gault) 11.3 Glucose Level 194 mg/dL (70-99) Calcium Level 6.4 mg/dL (8.5-10.1) Phosphorus Level 7.7 mg/dL (2.6-4.7) Albumin 2.4 g/dL (3.4-5.0) Micro Micro Microbiology 04/25/20 Urine Culture - Final, Complete Review of Systems Constitutional: yes: alert Ears/Nose/Throat: Yes: no symptom reported Eyes: Yes: no symptom reported Pulmonary: Yes no symptom reported Cardiovascular: Yes no symptom reported Gastrointestional: Yes: nausea, other (WT LOSS) Genitourinary: Yes: no symptom reported Musculoskeletal: Yes: no symptom reported Skin: Yes no symptom reported Psychiatric/Neurological: Yes: no symptom reported Endocrine: Yes: no symptom reported Hematologic/Lymphatic: Yes: anemia Physical Exam General Appearance: no apparent distress Skin: warm Respiratory: bilateral CTA Heart: S1S2 Abdomen: soft, bowel sounds present Genitourinary: bladder flat Extremities: pulses present Neurology: alert, oriented, follow commands Assessment Assessment IMP UREMIA ANEMIA OF RENAL FAILURE WT LOSS RENAL FAILURE-ACUTE VS ESRD HTN HX DM II HYPERPHOSPHATEMIA MET ACIDOSIS PANCYTOPENIA S/P RENAL BX POST PROCEDURE BLEEDING - PROB SUBCAPSULAR HEMATOMA S/P GELFOAM EMBOLIZATION PLAN DIALYSIS TODAY UF ZERO CLEARANCE ONLY HAS CBI MAY NEED CATH CHANGED PROB TRANSFER TODAY SO HE CAN HAVE UROLOGY SERVICE INVOLVED WILL FOLLOW CHALO ALVAREZ MD Apr 26, 2020 11:51
[2020-04-26 12:11] LABS: HEMATOCRIT 25.5 % (39.0-53.0); HEMOGLOBIN 8.4 g/dL (13.0-17.5); RED BLOOD COUNT 2.83 x10^6/uL (4.30-5.70); RED CELL DISTRIBUTION WIDTH 15.5 % (11.5-14.5); WHITE BLOOD COUNT 22.3 x10^3/uL (4.0-11.0)
[2020-04-26] MEDS ORDERED: ALBUMIN HUMAN 25% 100 ML IV ONE (12:45)
--- NOTE | 2020-04-26 12:56 | NUR ---
SS following up with discharge planning. SS reviewed pt chart and discussed with pt RN. Pt accepted at [facility]. Accepting physician Dr. Conley at [place]. Bed#[id number]. Report#[phone]. Pt will go to [facility] via [facility] transport, . Packet, ambulance form, and transfer form on the chart. Pt and pt's RN notified.
[2020-04-26] MEDS ORDERED: PROCHLORPERAZINE 10 MG/2 ML VIAL. IV PRN (13:00)
--- NOTE | 2020-04-26 13:04 | SNU/HH DC ---
DISCHARGE ORDERS DISCHARGE INFORMATION: DISCHARGE DATE: Apr 26, 2020 FINAL DIAGNOSIS Problems Medical Problems: (1) Elevated troponin Status: Acute (2) PNA (pneumonia) Status: Acute CONDITION ON DISCHARGE: Critical POST DISCHARGE ORDERS: DIET AFTER DISCHARGE: NPO CHECKS AFTER DISCHARGE: COMMENTS: lower back FOLLOW-UP: PHYSICIAN FOLLOW-UP: Urology MANAS ADDITIONAL FOLLOW-UP: Hospitalist for transfer LAB ORDERS FOR FOLLOW-UP: CBC q6h TREATMENT/EQUIPMENT ORDERS: INFUSION EQUIPMENT NEEDED: IV Line Physical Therapy For: Evalulation/Treatment Occupational Therapy For: Evaluation/Treatment MOON BLISS MD Apr 26, 2020 13:04
--- NOTE | 2020-04-26 13:18 | NUR ---
Patient to [facility]. Telephone report given to Laury Sheppard. EMS here to transfer. No belongings with patient at time of transfer. VSS
--- NOTE | 2020-04-29 16:18 | RAD ---
Ultrasound-guided biopsy, left kidney April 25, 2020 04/29/2020 2:13 PM Clinical Indication: Renal failure, undetermined etiology Discussion: The procedure was explained in its entirety to the patient or the patients designated customer contact representative by a member of the treatment team, including a discussion of the risks, benefits and commonly accepted alternatives to the procedure, as well as the expected consequences of no therapy whatsoever. Discussion of the risks included, but was not limited to, those that are most frequent and those that are rare but possibly severe or life-threatening, as well as the possibility of unforeseen complications. All elements of maximal sterile barrier technique including the use of a cap, mask, sterile gown, sterile gloves, large sterile sheet, appropriate hand hygiene, and 2% chlorhexidine for cutaneous antisepsis (or acceptable alternative antiseptic per current guidelines) were followed for this procedure. Ultrasound evaluation demonstrates a left kidney minimal biopsy. The overlying skin was prepped and draped as described. 1% lidocaine was administered for local anesthesia. Under ultrasound guidance a 17-gauge needle was advanced tangentially the superior posterior lateral left renal cortex. 2 core biopsies were obtained . Gelfoam embolization of the biopsy tract was performed as the guiding needle was removed. Manual pressure was held. Repeat ultrasound performed for several minutes demonstrating no significant hematoma, or other immediate postbiopsy complication. Expected post biopsy changes were seen. The procedures performed under conscious sedation including continuous cardiopulmonary monitoring via dedicated sedation nurse. [id number] sedation time: 16 minutes Impression: Ultrasound guided left kidney biopsy
--- NOTE | 2020-04-29 16:26 | RAD ---
04/29/2020 2:16 PM Procedure: 1. Left renal angiography 2. Coil embolization of actively bleeding distal left renal arteries 3. Right renal angiogram Clinical Indication: Hematuria, hypotension following left kidney biopsy earlier today Discussion: The procedure was explained in its entirety to the patient or the patients designated appeals representative by a member of the treatment team, including a discussion of the risks, benefits and commonly accepted alternatives to the procedure, as well as the expected consequences of no therapy whatsoever. Discussion of the risks included, but was not limited to, those that are most frequent and those that are rare but possibly severe or life-threatening, as well as the possibility of unforeseen complications. All elements of maximal sterile barrier technique including the use of a cap, mask, sterile gown, sterile gloves, large sterile sheet, appropriate hand hygiene, and 2% chlorhexidine for cutaneous antisepsis (or acceptable alternative antiseptic per current guidelines) were followed for this procedure. The right groin was prepped and draped using sterile barrier technique. Ultrasound evaluation demonstrates the right common femoral artery be patent. The artery was accessed using direct ultrasound guidance and micropuncture technique. Reference ultrasound images were saved the medical record. Also noted during ultrasound evaluation of the groin is a large amount of clotted blood in the bladder lumen. A 5 [place] vascular sheath was placed. A soft tissue catheter was advanced into the ostium of the left renal artery. Renal angiography was performed. This demonstrated the irregular appearance of the entire left kidney with port visualization of distal arteries possibly from subcapsular hematoma with compression. Areas of active extravasation identified involving the mid to the inferior left kidney, which is surprising given the upper pole nature of the biopsy. Selective angiograms with a microcatheter was then performed. Located to bleeding artery was selectively identified. Coil embolization was performed. After this multiple selective and nonselective renal angiograms failed to yield other sites of active bleeding. Markedly delayed nephrograms were noted during the exam. Minimal right and renal angiogram was performed to vasculitis affecting the kidneys or other angiographic findings which could help explain multifocal bleeding. Severe changes of atherosclerotic vascular disease were noted. The sheath was removed. A closure device was deployed. Manual pressure was held. No immediate complications were identified. Subsequently the patient was transferred to the to the CT scanner for evaluation, and then into the intensive care unit for close observation. A right internal jugular central line was placed (see separate dictation). Continuous bladder irrigation had been initiated prior to the angiogram. Total fluoroscopy time: 10 minutes Dose area product 707 Gycm2 Impression: 1. Diffuse irregular angiographic appearance of the left kidney. Subcapsular bleed is suspected. A superior pole arterial branches were felt to be the source of active hemorrhage and was coiled. Significantly delayed left nephrogram noted. 2. Severe changes of chronic severe diffuse atherosclerotic vascular disease noted in the contralateral kidney
--- NOTE | 2020-05-07 18:21 | PDOC3 ---
[facility]-Discharge Summary Date of Admission: Date of Admission: Apr 20, 2020 Date of Discharge: Date of Discharge: Apr 26, 2020 Discharge Diagnosis: Discharge Diagnosis: Acute renal failure, newly diagnosed kidney disease Hyperkalemia Hypocalcemia, renal to dialyze Transaminitis Jaundice Elevated BNP Elevated troponins UTI URINATING CONY BLOOD, IR NOTIFIED 04-25 POST RENAL BX 04-25 Hemodynamic instability requiring vasopressors Profound anemia due to acute blood loss around the left posterior renal artery, uncontrolled Hospital Course: Hospital Course: 69-year-old male no stated past medical history who resents to the ER with complaint of generalized weakness for the past 3 months. Over this time patient notes associated 40 pound unintentional weight loss, and constitutional symptoms of night sweats and intermittent nocturnal fevers. He lives alone and presents to the ED at the behest of his family friend, who has been urging patient to be seen by a doctor for the past several months. Upon evaluation in the ER he is noted to be jaundice with icteric sclera. He states he has not urinated today, and upon evaluation in the ER he was noted to be in renal failure. Patient is alert and oriented to self and place. He really does not have any complaints except for admitted weakness, and he requires much prodding to obtain information. Will admit patient for further medical management. 04/21: Patient without complaints today. Hemoglobin 6.7, potassium improved. Ordered 2 units pRBC. Due to presenting symptoms of weakness and intermittent fevers. Will swab patient for COVID-19. He may transfer 6th floor. Denies fever or nausea. 1 renal fx worse, starting dialysis 04-22, recent 40 lb weight lossSono c/w fatty liver. likely source of elevated LFT's. needs RENAL BIOPSY JOSE ALBERTO NON CA BINDERS 04/26/2020 Patient continues to be on vasopressors for maps between 60-70. Attempting to transfer to [facility] for urology coverage. Patient this morning was taken to IR for angio and was unable to determine definitive site of bleeding. IR was able to place Gelfoam within the renal artery. Patient still needs to have uro logy on board for definitive management for uncontrolled bleeding. Possibly needing nephrectomy. Patient has not initiated dialysis as of yet. We will continue to trend chemistries and H&H. PRBC transfusion as needed. Patient's chart, labs, images were reviewed and discussed with RICH Pt accepted at [facility] where there is urology support. Accepting physician Dr. Conley at [place]. Bed#[id number]. Report#[phone]. Pt will go to [facility] via [facility] transport. Patient remains stabilized while on vasopressors and current HB at 8.4, but still downtrending. Disposition: Disposition/Orders: D/C to Another Facility Activity: Activity: Resume previous activity Diet: Diet: NPO Medications: Home Meds No Active Prescriptions or Reported Meds No Active Prescriptions or Reported Meds Total Time: Total Time: Total time spent was 50 minutes in preparing scripts, discharge planning with SW and RN, and preparing this discharge summary. Patient seen and examined on day of discharge. Justicifation of Admission Dx: Justifications for Admission: Justification of Admission Dx: Yes Acute Renal Failure: RF Can't Be Managed Outpt MOON BLISS MD May 07, 2020 18:21
== END 2020-04-26 13:15 | disposition short-term general hospital (02) | DRG 673 ==
LOC: ER 14:34 → 1 WEST ICU 16:25 → 6 SOUTH 19:02 → ED HOLD 20:17 → 6 SOUTH 04-21 13:30 → 5 NORTH 04-22 15:24 → 1 WEST ICU 04-25 14:10
PROVIDERS: ADMIT Family Medicine; ATTEND Family Medicine
PROC: 30233N1 Transfusion of Nonautologous Red Blood Cells into Peripheral Vein, Percutaneous Approach (ICD-10-PCS; principal; 2020-04-21)
PROC: 5A1D70Z Performance of Urinary Filtration, Intermittent, Less than 6 Hours Per Day (ICD-10-PCS; 2020-04-22)
PROC: 5A1D70Z Performance of Urinary Filtration, Intermittent, Less than 6 Hours Per Day (ICD-10-PCS; 2020-04-23)
PROC: 5A1D70Z Performance of Urinary Filtration, Intermittent, Less than 6 Hours Per Day (ICD-10-PCS; 2020-04-24)
PROC: B4171ZZ Fluoroscopy of Left Renal Artery using Low Osmolar Contrast (ICD-10-PCS; 2020-04-26)
PROC: 04LA3DZ Occlusion of Left Renal Artery with Intraluminal Device, Percutaneous Approach (ICD-10-PCS; 2020-04-26)
PROC: B4171ZZ Fluoroscopy of Left Renal Artery using Low Osmolar Contrast (ICD-10-PCS; 2020-04-26)
PROC: 0JH63XZ Insertion of Tunneled Vascular Access Device into Chest Subcutaneous Tissue and Fascia, Percutaneous Approach (ICD-10-PCS; 2020-04-26)
PROC: 02H633Z Insertion of Infusion Device into Right Atrium, Percutaneous Approach (ICD-10-PCS; 2020-04-26)
PROC: B548ZZA Ultrasonography of Superior Vena Cava, Guidance (ICD-10-PCS; 2020-04-26)
PROC: 5A1D70Z Performance of Urinary Filtration, Intermittent, Less than 6 Hours Per Day (ICD-10-PCS; 2020-04-26)
PROC: B4101ZZ Fluoroscopy of Abdominal Aorta using Low Osmolar Contrast (ICD-10-PCS; 2020-04-26)
PROC: 05HM33Z Insertion of Infusion Device into Right Internal Jugular Vein, Percutaneous Approach (ICD-10-PCS; 2020-04-26)
PROC: B543ZZA Ultrasonography of Right Jugular Veins, Guidance (ICD-10-PCS; 2020-04-26)
DX: N17.9 Acute kidney failure, unspecified (principal); I50.43 Acute on chronic combined systolic (congestive) and diastolic (congestive) heart failure; R57.8 Other shock; I13.2 Hypertensive heart and chronic kidney disease with heart failure and with stage 5 chronic kidney disease, or end stage renal disease; E87.2 Acidosis; D61.818 Other pancytopenia; N39.0 Urinary tract infection, site not specified; D62 Acute posthemorrhagic anemia; I42.9 Cardiomyopathy, unspecified; J98.11 Atelectasis; T80.818A Extravasation of other vesicant agent, initial encounter; E83.52 Hypercalcemia; E11.22 Type 2 diabetes mellitus with diabetic chronic kidney disease; N18.6 End stage renal disease; E87.5 Hyperkalemia; E83.51 Hypocalcemia; D63.1 Anemia in chronic kidney disease; N40.0 Benign prostatic hyperplasia without lower urinary tract symptoms; R63.4 Abnormal weight loss; E83.39 Other disorders of phosphorus metabolism; Z20.822 Contact with and (suspected) exposure to COVID-19; Z60.2 Problems related to living alone; K57.30 Diverticulosis of large intestine without perforation or abscess without bleeding; E78.5 Hyperlipidemia, unspecified; E27.8 Other specified disorders of adrenal gland; I34.0 Nonrheumatic mitral (valve) insufficiency; I70.0 Atherosclerosis of aorta; K59.00 Constipation, unspecified; K76.0 Fatty (change of) liver, not elsewhere classified; R31.0 Gross hematuria; Y84.8 Other medical procedures as the cause of abnormal reaction of the patient, or of later complication, without mention of misadventure at the time of the procedure; Z87.891 Personal history of nicotine dependence; Z91.19 Patient's noncompliance with other medical treatment and regimen; Z82.49 Family history of ischemic heart disease and other diseases of the circulatory system
CPT/HCPCS: 36252; 36253; 36415; 36556; 36558; 36600; 37244; 50200; 71045; 74176; 75625; 76705; 76770; 76857; 76937; 76942; 77001; 80048; 80053; 80061; 80069; 80076; 81001; 82550; 82607; 82668; 82728; 82805; 82962; 83010; 83036; 83520; 83540; 83550; 83615; 83690; 83735; 83880; 83970; 84100; 84165; 84300; 84443; 84484; 84550; 85007; 85014; 85018; 85025; 85027; 85045; 85610; 85730; 86705; 86706; 86709; 86803; 86850; 86900; 86901; 86920; 87077; 87086; 87186; 87340; 87426; 88300; 93005; 93306; 96374; 96375; 99152; 99153; 99291; A4215; C1713; C1750; C1760; C1769; C1887; C1892; C1894; G0269; J0456; J0610; J0690; J0696; J0780; J0882; J1644; J1756; J2250; J2405; J2543; J2597; J3010; J3475; J3490; J7030; J7060; P9016; Q9967; U0003; 97110-GP; 97116-GP; G0378